=== PATIENT | female | born 1930 | race Caucasian/White ===

== ENCOUNTER 2016-12-02 06:56 | Inpatient (IN) | payer OTHER, BC ==
[~2016-12-02] VITALS: Ht 162.6 cm; Wt 83.2 kg
[~2016-12-02 06:56] MED LIST: AMLO-110 PO; ASPI81TA28 PO; ATOR10TA88 PO; BIMA0.01 OP; BRIM0.1S OP; CHOL100026 PO; CLX/20 PO; ELQ25 PO; LEVO88TA3 PO; LISI-725 PO; LSX40 PO; MELO7.5T5 PO; METO50TA17 PO; ROPI0.5T15 PO; SODI10IN5 INJ; TEMA15CA4 PO
[2016-12-02] MEDS ORDERED: SODIUM CHLORIDE 0.9% 1000ML 1,000 ML IV STA (07:32)
[2016-12-02] MEDS ORDERED: SERT50TA PO (07:38)
[2016-12-02] MEDS ORDERED: TYLOTC500 PO (07:38)
[2016-12-02] MEDS ORDERED: ROPI1TAB PO (07:38)
[2016-12-02] MEDS ORDERED: CIPR1TAB11 PO (07:40)
[2016-12-02] MEDS ORDERED: LOTE0.5S OPL (07:40)
--- NOTE | 2016-12-02 07:48 | EMERGENCY ROOM VISIT NOTE ---
History Report prepared by Leni: Josephine Pino Under the Supervision of: Dr. Chuyita Kamara D.O. First contact with patient: 07:11 Chief Complaint: CONFUSION Stated Complaint: DISORIENTED,CONFUSED,FELL,SUDDEN CHANGE IN BEHAVIO History of Present Illness The patient is an 86 year old female who presents to the Emergency Room with complaints of increasing confusion that began yesterday. Per the patient's daughter, the patient lives at home with her and her . She states that the patient typically stays alone at home throughout the day. The patient's daughter states that yesterday when she arrived home, she noticed that the patient was up in bed and appeared confused. She states that the patient stated that she called a doctor that morning and canceled an appointment. The patient's daughter notes that the patient states that she talked to the cat, and the cat told her that she was going to be shaved. She states that the patient left laundry in the wash, noting that she forgot about it. The patient' s daughter notes that it appeared as if the patient ate noting that there was food on the counter, but the patient states that she didn't eat. She states that the patient's tea was left in the microwave from the morning. The patient' s daughter notes that the patient didn't take five days worth of medications. She states that the patient also tried putting face lotion in her eyes instead of eye drops. The patient's daughter notes that the patient was confusing her left and right. She states that the patient has recently noticed blurry vision. The patient's daughter states that the patient was up every hour last evening to go to the bathroom, which is abnormal. The patient's son-in-law notes that the patient fell twice last night within a half hour. He denies the patient having any other recent falls over the last several weeks. The patient' s daughter notes that the patient has been complaining of intermittent nausea for the past 3-4 weeks, and the patient states that she vomited yesterday. She states that the patient was recently placed on Cipro for her hematuria, but states that her culture didn't grow out anything. The patient's daughter notes that the patient has a history of atrial fibrillation and CHF, stating that she is on Eloquis and Aspirin. The patient notes that recently she has been dizzy and disoriented. She states that her dizziness if a lightheaded feeling, noting that she feels off balance, but denies any room spinning sensation. She notes that she has had a recent cough and cold. The patient denies any increased shortness of breath, headache, change in bowel movements, melena, hematochezia, urinary symptoms, or pain. Source of History: patient, family (daughter, son-in-law) Onset: yesterday Position: other (global) Quality: other (confusion) Timing: other (increasing) Associated Symptoms: No SOB, No headache, No hematochezia, No melena Note: Associated Symptoms: dizzy, lightheaded, disoriented, recent falls Review of Systems See HPI for pertinent positives & negatives. A total of 10 systems reviewed and were otherwise negative. Past Medical & Surgical Medical Problems: (1) Acute CHF (2) Atrial fibrillation with RVR (3) Hypercholesteremia (4) Hypertension Family History Depression FHx: cancer Heart disease Social History Smoking Status: Never Smoker Drug Use: none Marital Status: Occupation Status: retired Current/Historical Medications Scheduled Acetaminophen (Tylenol), 1,000 MG PO TID Amlodipine (Norvasc), 5 MG PO QAM Apixaban (Eliquis), 5 MG PO BID Aspirin (Aspirin Ec), 81 MG PO QAM Atorvastatin (Lipitor), 10 MG PO QAM Bimatoprost (Lumigan), 1 DROPS OP HS Brimonidine Tartrate (Alphagan P Oph), 1 DROP OP TID Cholecalciferol (Vitamin D High Potency), 2,000 INTERUNIT PO QAM Ciprofloxacin Tab (Cipro), 250 MG PO BID Furosemide (Furosemide), 40 MG PO QAM Levothyroxine Sodium (Levothyroxine Sodium), 1 TAB PO QAM Lisinopril (Zestril), 20 MG PO QAM Loteprednol Etabonate (Lotemax 0.5% Oph), 1 DROP OPL QID Metoprolol Tartrate (Metoprolol Tartrate), 50 MG PO BID Ropinirole (Requip), 1 MG PO HS Ropinirole (Requip), 0.5 MG PO QAM Sertraline (Zoloft), 50 MG PO DAILY Temazepam (Restoril), 15 MG PO HS Allergies Coded Allergies: Meperidine (Verified Allergy, Unknown, HIVES, 12/02/16) Uncoded Allergies: SINDRYNZA (Allergy, Mild, eye gets crusty and itches, 12/05/15) TIMOPLIE (Allergy, Mild, eye itches and gets crusty, 12/05/15) Physical Exam Vital Signs Date Time Temp Pulse Resp B/P Pulse Ox O2 Delivery O2 Flow Rate FiO2 12/02/16 11:40 97 Room Air 12/02/16 11:09 88 20 151/110 97 12/02/16 09:10 88 20 151/95 93 12/02/16 08:45 84 12/02/16 08:40 Room Air 12/02/16 08:28 88 20 170/112 92 Room Air 12/02/16 07:03 37.0 73 18 149/99 97 Room Air Physical Exam GENERAL: alert, well appearing, well nourished, no distress, non-toxic EYE EXAM: normal conjunctiva, PERRL and EOM's grossly intact OROPHARYNX: no exudate, no erythema, lips, buccal mucosa, and tongue normal and mucous membranes are moist NECK: supple, no nuchal rigidity, no adenopathy, non-tender LUNGS: Clear to auscultation. Normal chest wall mechanics HEART: Irregular. no murmurs, S1 normal and S2 normal ABDOMEN: abdomen soft, non-tender, normo-active bowel sounds, no masses, no rebound or guarding. BACK: Back is symmetrical on inspection and there is no deformity, no midline tenderness, no CVA tenderness. SKIN: no rashes and no bruising UPPER EXTREMITIES: upper extremities are grossly normal. LOWER EXTREMITIES: No pitting edema. NEURO EXAM: Normal sensorium, cranial nerves II-XII grossly intact, normal speech, no gross weakness of arms, no gross weakness of legs. No ataxia of extremities, no facial droop. Patient was oriented to place and person, was confused to time. Negative pronator drift, normal finger to nose. Medical Decision & Procedures ER Provider Diagnostic Interpretation: Xray results per the radiologist and my interpretation. Other results have been interpreted by the radiologist and reviewed by me. HEAD CT NONCONTRAST CT DOSE: 1043.08 mGy.cm HISTORY: Mental status change altered mental status TECHNIQUE: Multiaxial CT images of the head were performed without the use of intravenous contrast. Comparison: None. Findings: The paranasal sinuses and mastoid air cells are clear. The calvarium and skull base are intact. The ventricles and sulci are within normal limits. There is no mass, hematoma, midline shift, or acute infarct. Impression: No acute intracranial abnormality. Electronically signed by: Seth Zapata M.D. 12/02/2016 8:29 AM Dictated Date/Time: 12/02/2016 8:28 AM CHEST ONE VIEW PORTABLE CLINICAL HISTORY: altered mental status dyspnea COMPARISON STUDY: 04/18/2016 FINDINGS: Moderate stable cardiomegaly. Calcification mitral annulus. Lungs are clear. Diaphragms smooth. Fibrotic change left pulmonary apex. IMPRESSION: Stable cardiomegaly. Calcification mitral annulus. The lungs are clear. Electronically signed by: Seth Zapata M.D. 12/02/2016 8:04 AM Dictated Date/Time: 12/02/2016 8:[address] DOSE: HISTORY: fall TECHNIQUE: Multiaxial CT images of the cervical spine were performed and reformatted in the sagittal and coronal plane without the use of contrast. COMPARISON: None. FINDINGS: No fractures. No subluxation. Prevertebral soft tissues and the C1-C2 interval are intact. No pneumothorax. Mild disc space narrowing at C4-C6. IMPRESSION: No fractures within the cervical spine. Electronically signed by: Surya Cardenas M.D. 12/02/2016 8:34 AM Dictated Date/Time: 12/02/2016 8:29 AM ULTRASOUND RIGHT UPPER QUADRANT ABDOMEN CLINICAL HISTORY: Change in mental status. Fall. COMPARISON STUDY: No priors. TECHNIQUE: Real-time, grayscale, and color flow sonography of the right upper quadrant of the abdomen was performed. Images are reviewed in the transverse and longitudinal planes. FINDINGS: Liver: The liver is enlarged, measuring 19.4 cm in length. The liver is normal in echotexture. There is mild central intrahepatic biliary ductal dilatation. The main portal vein is patent. There are least 2 hepatic cysts measure up to 2.8 cm. Gallbladder: The gallbladder is mildly distended. A large shadowing mobile gallstone is identified measuring at least 2.8 cm. There is no gallbladder wall thickening or pericholecystic fluid. A sonographic Hutchins's sign is reportedly absent. The common bile duct measures up to 0.8 cm in diameter. Pancreas: Visualized portions of the pancreatic head and body are normal in appearance. The splenic vein is patent. Right kidney: Survey images of the right kidney demonstrate cortical atrophy. There is mild right-sided hydronephrosis. Nonobstructing right renal calculi are noted. Ascites: None. IMPRESSION: 1. Cholelithiasis without sonographic evidence of acute cholecystitis. 2. Nephrolithiasis. 3. There is mild right-sided hydronephrosis. An obstructing right ureteral calculus is not excluded. Clinical correlation will be required. Consider radiographic correlation. Electronically signed by: Leopoldo Quiñones M.D. 12/02/2016 11:04 AM Dictated Date/Time: 12/02/2016 11:01 AM Laboratory Results 12/02/16 08:52 Red Blood Count 5.05, Mean Corpuscular Volume 82.6, Mean Corpuscular Hemoglobin 29.1, Mean Corpuscular Hemoglobin Concent 35.3, Mean Platelet Volume 10.1, Neutrophils (%) (Auto) 76.5, Lymphocytes (%) (Auto) 13.7, Monocytes (%) (Auto) 9.2, Eosinophils (%) (Auto) 0.1, Basophils (%) (Auto) 0.1, Neutrophils # (Auto) 7.00, Lymphocytes # (Auto) 1.25, Monocytes # (Auto) 0.84, Eosinophils # (Auto) 0.01, Basophils # (Auto) 0.01 Test 12/02/16 08:00 12/02/16 08:52 12/02/16 11:35 Urine Color RED Urine Appearance CLEAR (CLEAR) Urine pH 5.5 (4.5-7.5) Urine Specific Adams 1.011 (1.000-1.030) Urine Protein 1+ (NEG) Urine Glucose (UA) TRACE (NEG) Urine Ketones 1+ (NEG) Urine Occult Blood 3+ (NEG) Urine Nitrite NEG (NEG) Urine Bilirubin NEG (NEG) Urine Urobilinogen NEG (NEG) Urine Leukocyte Esterase TRACE (NEG) Urine WBC (Auto) 1-5 /hpf (0-5) Urine RBC (Auto) >30 /hpf (0-4) Urine Hyaline Casts (Auto) 1-5 /lpf (0-5) Urine Epithelial Cells (Auto) 20-30 /lpf (0-5) Urine Bacteria (Auto) NEG (NEG) White Blood Count 9.15 K/uL (4.8-10.8) Red Blood Count 5.05 M/uL (4.2-5.4) Hemoglobin 14.7 g/dL (12.0-16.0) Hematocrit 41.7 % (37-47) Mean Corpuscular Volume 82.6 fL (80-100) Mean Corpuscular Hemoglobin 29.1 pg (25-34) Mean Corpuscular Hemoglobin Concent 35.3 g/dl (32-36) Platelet Count 210 K/uL (130-400) Mean Platelet Volume 10.1 fL (7.4-10.4) Neutrophils (%) (Auto) 76.5 % Lymphocytes (%) (Auto) 13.7 % Monocytes (%) (Auto) 9.2 % Eosinophils (%) (Auto) 0.1 % Basophils (%) (Auto) 0.1 % Neutrophils # (Auto) 7.00 K/uL (1.4-6.5) Lymphocytes # (Auto) 1.25 K/uL (1.2-3.4) Monocytes # (Auto) 0.84 K/uL (0.11-0.59) Eosinophils # (Auto) 0.01 K/uL (0-0.5) Basophils # (Auto) 0.01 K/uL (0-0.2) RDW Standard Deviation 41.3 fL (36.4-46.3) RDW Coefficient of Variation 13.7 % (11.5-14.5) Immature Granulocyte % (Auto) 0.4 % Immature Granulocyte # (Auto) 0.04 K/uL (0.00-0.02) Est Creatinine Clear Calc Drug Dose 53.9 ml/min Estimated Average Glucose 140 mg/dl Hemoglobin A1c 6.5 % (4.5-5.6) Total Bilirubin 1.6 mg/dl (0.2-1) Alanine Aminotransferase (ALT/SGPT) 12 U/L (12-78) Alkaline Phosphatase 60 U/L (45-117) Total Protein 7.0 gm/dl (6.4-8.2) Albumin 3.3 gm/dl (3.4-5.0) Globulin 3.7 gm/dl (2.5-4.0) Albumin/Globulin Ratio 0.9 (0.9-2) Aspartate Amino Transf (AST/SGOT) 24 U/L (15-37) Thyroid Stimulating Hormone (TSH) 6.900 uIu/ml (0.300-4.500) Free Thyroxine 1.21 ng/dl (0.80-1.60) Laboratory results per my review. Medications Administered Medications (Trade) Dose Ordered Sig/Jerzy Route Start Time Stop Time Status Last Admin Dose Admin Sodium Chloride (Nss 1000ml) 1,000 ml @ 150 mls/hr [id number] STAT IV 12/02/16 07:32 12/02/16 14:11 DC 12/02/16 09:10 150 MLS/HR Aspirin (Ecotrin Tab) 325 mg ONE STAT PO 12/02/16 11:31 12/02/16 11:33 DC 12/02/16 11:47 325 MG ECG Indication: other (confusion) Rate (beats per minute): 112 Rhythm: atrial fibrillation Findings: PVC, other (baseline artifact) Change: Repeat EKG: atrial fibrillation 85, occasional PVC, left axis, prolonged QT, no acute ischemic changes. ED Course 0713: The patient was evaluated in room A10. A complete history and physical examination was performed. 0732: Ordered Sodium Chloride 1000 ml @ 150 mls/hr IV. 0950: Upon reevaluation, the patient's exam is unchanged. I discussed my findings with the patient and her family and they understand and agree with the treatment plan. Based on the patients age, coexisting illnesses, exam and lab findings the decision to treat as an inpatient was made. The patient remained stable while under my care. The patient will be evaluated for further management. 1130: I discussed the patients case with REBECCA Almazan PA-C. She is going to evaluate the patient for further treatment under REBECCA Mejia. 1131: Ordered Aspirin 325 mg PO. Medical Decision The patient is an 86 year old female who presents to the ED with complaints of confusion. Patient with new-onset altered mental status and confusion. I have a low suspicion for a culture medic injury. Patient outside of the window for any acute intervention for possible CVA. Patient complained with medications as family helps to manage those and has been taking her blood thinner daily. Patient with known chronic A. fib and no current changes. No acute evidence of bacteremia/sepsis. Hematuria likely secondary to catheterize specimen in the setting of known anticoagulation. I think less likely medication reaction from recent use of Cipro for presumed UTI tested for as an outpatient. No evidence of pyelonephritis. Ultrasound ordered given mild elevation of LFTs, patient with cholelithiasis but no evidence of acute cholecystitis. Doubt congestive leading to altered mentation no history of chronic liver disease or hepatic encephalopathy. Hematuria less likely from incidental nephrolithiasis noted on ultrasound as patient's symptoms and presentation was not consistent with renal colic. Discussed with patient and family at bedside possible differential diagnosis, need for additional evaluation, they verbalized understanding were agreeable to plan. Consults Time Called: 1109 Consulting Physician: REBECCA Almazan PA-C, REBECCA Mejia Returned Call: 1130 I discussed the patients case with REBECCA Almazan PA-C. She is going to evaluate the patient for further treatment under REBECCA Mejia. Impression Primary Impression: Altered mental status Additional Impressions: Hematuria A-fib Abnormal LFTs (liver function tests) Scribe Attestation The scribe's documentation has been prepared under my direction and personally reviewed by me in its entirety. I confirm that the note above accurately reflects all work, treatment, procedures, and medical decision making performed by me. Departure Information Dispostion Being Evaluated By Hospitalist Regino Garcia M.D. (PCP) Problem Qualifiers Primary Impression: Altered mental status Altered mental status type: disorientation Qualified Codes: R41.0 - Disorientation, unspecified Additional Impressions: A-fib Atrial fibrillation type: chronic Qualified Codes: I48.2 - Chronic atrial fibrillation
--- NOTE | 2016-12-02 08:06 | DIAGNOSTIC IMAGING REPORT ---
CHEST ONE VIEW PORTABLE CLINICAL HISTORY: altered mental status dyspnea COMPARISON STUDY: 04/18/2016 FINDINGS: Moderate stable cardiomegaly. Calcification mitral annulus. Lungs are clear. Diaphragms smooth. Fibrotic change left pulmonary apex. IMPRESSION: Stable cardiomegaly. Calcification mitral annulus. The lungs are clear. Electronically signed by: Seth Zapata M.D. 12/02/2016 8:04 AM Dictated Date/Time: 12/02/2016 8:02 AM
--- NOTE | 2016-12-02 08:31 | DIAGNOSTIC IMAGING REPORT ---
HEAD CT NONCONTRAST CT DOSE: 1043.08 mGy.cm HISTORY: Mental status change altered mental status TECHNIQUE: Multiaxial CT images of the head were performed without the use of intravenous contrast. Comparison: None. Findings: The paranasal sinuses and mastoid air cells are clear. The calvarium and skull base are intact. The ventricles and sulci are within normal limits. There is no mass, hematoma, midline shift, or acute infarct. Impression: No acute intracranial abnormality. Electronically signed by: Seth Zapata M.D. 12/02/2016 8:29 AM Dictated Date/Time: 12/02/2016 8:28 AM
--- NOTE | 2016-12-02 08:36 | DIAGNOSTIC IMAGING REPORT ---
CERVICAL SPINE CT CT DOSE: HISTORY: fall TECHNIQUE: Multiaxial CT images of the cervical spine were performed and reformatted in the sagittal and coronal plane without the use of contrast. COMPARISON: None. FINDINGS: No fractures. No subluxation. Prevertebral soft tissues and the C1-C2 interval are intact. No pneumothorax. Mild disc space narrowing at C4-C6. IMPRESSION: No fractures within the cervical spine. Electronically signed by: Surya Cardenas M.D. 12/02/2016 8:34 AM Dictated Date/Time: 12/02/2016 8:29 AM
[2016-12-02 08:51] LABS: URINE APPEARANCE CLEAR (CLEAR); URINE BILIRUBIN NEG (NEG); URINE COLOR RED; URINE EPITHELIAL CELL AUTO 20-30 /lpf (0-5); URINE NITRITE NEG (NEG); URINE PH 5.5 (4.5-7.5); URINE SPECIFIC GRAVITY 1.011 (1.000-1.030); UROBILINOGEN NEG (NEG); ZZURINE CULT IF INDIC CATH NO
[2016-12-02 08:59] LABS: MANUAL MICROSCOPIC REQUIRED? NO; REVIEW REQ? NO
[2016-12-02 09:17] LABS: BASO % 0.1 %; BASO ABS # 0.01 K/uL (0-0.2); COMPLETE YES; EOS % 0.1 %; HEMATOCRIT 41.7 % (37-47); IG% 0.4 %; LYMPH % 13.7 %; LYMPH ABS # 1.25 K/uL (1.2-3.4); MEAN CELL VOLUME 82.6 fL (80-100); MEAN CORPUSCULAR HEMOGLOBIN 29.1 pg (25-34); MEAN CORPUSCULAR HGB CONC 35.3 g/dl (32-36); MEAN PLATELET VOLUME 10.1 fL (7.4-10.4); MONO % 9.2 %; NEUT % 76.5 %; PLATELET COUNT 210 K/uL (130-400); RED BLOOD COUNT 5.05 M/uL (4.2-5.4); WHITE BLOOD COUNT 9.15 K/uL (4.8-10.8)
[2016-12-02 09:51] LABS: ALB/GLOB RATIO 0.9 (0.9-2); ALKALINE PHOSPHATASE 60 U/L (45-117); ALT/SGPT 12 U/L (12-78); BLOOD UREA NITROGEN 12 mg/dl (7-18); BUN/CREATININE RATIO 14.7 (10-20); CALCIUM 8.7 mg/dl (8.5-10.1); CARBON DIOXIDE 27 mmol/L (21-32); CHLORIDE 96 mmol/L (98-107); CREATININE 0.78 mg/dl (0.60-1.20); GLUCOSE 152 mg/dl (70-99); SODIUM 135 mmol/L (136-145)
--- NOTE | 2016-12-02 11:05 | DIAGNOSTIC IMAGING REPORT ---
ULTRASOUND RIGHT UPPER QUADRANT ABDOMEN CLINICAL HISTORY: Change in mental status. Fall. COMPARISON STUDY: No priors. TECHNIQUE: Real-time, grayscale, and color flow sonography of the right upper quadrant of the abdomen was performed. Images are reviewed in the transverse and longitudinal planes. FINDINGS: Liver: The liver is enlarged, measuring 19.4 cm in length. The liver is normal in echotexture. There is mild central intrahepatic biliary ductal dilatation. The main portal vein is patent. There are least 2 hepatic cysts measure up to 2.8 cm. Gallbladder: The gallbladder is mildly distended. A large shadowing mobile gallstone is identified measuring at least 2.8 cm. There is no gallbladder wall thickening or pericholecystic fluid. A sonographic Hutchins's sign is reportedly absent. The common bile duct measures up to 0.8 cm in diameter. Pancreas: Visualized portions of the pancreatic head and body are normal in appearance. The splenic vein is patent. Right kidney: Survey images of the right kidney demonstrate cortical atrophy. There is mild right-sided hydronephrosis. Nonobstructing right renal calculi are noted. Ascites: None. IMPRESSION: 1. Cholelithiasis without sonographic evidence of acute cholecystitis. 2. Nephrolithiasis. 3. There is mild right-sided hydronephrosis. An obstructing right ureteral calculus is not excluded. Clinical correlation will be required. Consider radiographic correlation. Electronically signed by: Leopoldo Quiñones M.D. 12/02/2016 11:04 AM Dictated Date/Time: 12/02/2016 11:01 AM
[2016-12-02] MEDS ORDERED: ASPIRIN 325 MG ECTAB PO STA (11:31)
[2016-12-02 11:40] VITALS: O2SAT 97; Ht 162.6 cm; Wt 83.2 kg
[2016-12-02 12:17] LABS: POTASSIUM 2.7 mmol/L (3.5-5.1)
[2016-12-02] MEDS ORDERED: SODIUM CHLORIDE 0.9% 1000ML 1,000 ML IV SCH (12:18)
[2016-12-02 12:25] LABS: THYROID STIMULATING HORMONE 6.9 uIu/ml (0.300-4.500)
[2016-12-02] MEDS ORDERED: ALUMINUM/MAGNESIUM/SIMETH (MAALOX MAX) 30 ML UDC PO PRN (12:30)
[2016-12-02] MEDS ORDERED: ACETAMINOPHEN 325 MG TAB PO PRN (12:30)
[2016-12-02] MEDS ORDERED: MAGNESIUM HYDROXIDE SUSP 30 ML UDC PO PRN (12:30)
[2016-12-02] MEDS ORDERED: POLYETHYLENE (MIRALAX) 17 GM PACK PO PRN (12:30)
[2016-12-02] MEDS ORDERED: ONDANSETRON INJ 2 MG/ML 2 ML VIAL IV PRN (12:30)
[2016-12-02] MEDS ORDERED: PHARMACIST DISCHARGE MED REC CONSULT PRN (12:30)
[2016-12-02] MEDS ORDERED: POTASSIUM CHLORIDE 10 MEQ TABCR PO STA ×2 (12:31→15:57)
--- NOTE | 2016-12-02 12:42 | History and Physical ---
History & Physical Date & Time of Service: Dec 02, 2016 at 12:38 Chief Complaint: Disoriented,Confused,Fell,Sudden Change In Behavio Primary Care Physician: Regino Mcleod M.D. History of Present Illness Source: patient, family (Daughter Arcelia) Ms. Villegas is an 86 y/o female with PMHx of Diastolic Congestive Heart Failure, Atrial Fibrillation, HTN, and HLD who presents to the ED complaining of increased confusion that began yesterday. HPI obtained by the daughter Arcelia as patient has difficulty recalling current events. Patient lives with her daughter and son-in-law and normally stays home alone throughout the day. Daughter reports patient is alert and oriented to person, place, and most of the time to time at baseline. When the daughter arrived home yesterday she noticed her mother was still in her bed and appeared confused. Patient was recalling events that did not occur throughout the day. Some of these events were bizarre such as claiming to talk to the cat who told her that she was going to be shaved. Daughter reports that she has been leaving laundry in the wash, leaving her drinks in the microwave, and not taking approximately 5 days worth of her medications. Reports that she has only been compliant with her Synthroid and sleeping pill. Also notes that she has been trying to use lotion as her eyedrops. Prior to these acute events patient is largely independent in his activities. Daughter reports that she helps organize the patient's medications allows her mother to manage them. Daughter has noted urinary frequency over the past couple days. Reporting that she was placed on ciprofloxacin for hematuria but culture without growth, which patient has been noncompliant. Patient has fallen twice last night within a half hour but reports she slid out of bed.. Associated nausea 3-4 weeks and patient reports emesis yesterday. Associated lightheadedness and dizziness and feels that she is off balance. Daughter denies slurred speech but reports difficulty finding words. In addition, phrases do not seem to have a purpose or make sense. She denies fever/chills, chest pain, shortness of breath, abdominal pain, dysuria, melena/hematochezia. In the ED, labs significant for troponin of 0.379. Potassium of 2.7. Head CT without acute intracranial processes. An chest x-ray reveals stable cardiomegaly without evidence of consolidation or pleural effusions. EKG with atrial fibrillation at a rate of 85 bpm. Past Medical/Surgical History Medical Problems: (1) Hypercholesteremia Status: Chronic (2) Hypertension Status: Chronic Family History Depression FHx: cancer Heart disease Social History Smoking Status: Never Smoker Smokeless Tobacco Use: No Alcohol Use: none Drug Use: none Marital Status: Housing status: lives with family Occupational Status: retired Allergies Coded Allergies: Meperidine (Verified Allergy, Unknown, HIVES, 12/02/16) Uncoded Allergies: SINDRYNZA (Allergy, Mild, eye gets crusty and itches, 12/05/15) TIMOPLIE (Allergy, Mild, eye itches and gets crusty, 12/05/15) Home Medications Scheduled Acetaminophen (Tylenol), 1,000 MG PO TID Amlodipine (Norvasc), 5 MG PO QAM Apixaban (Eliquis), 5 MG PO BID Aspirin (Aspirin Ec), 81 MG PO QAM Atorvastatin (Lipitor), 10 MG PO QAM Bimatoprost (Lumigan), 1 DROPS OP HS Brimonidine Tartrate (Alphagan P Oph), 1 DROP OP TID Cholecalciferol (Vitamin D High Potency), 2,000 INTERUNIT PO QAM Ciprofloxacin Tab (Cipro), 250 MG PO BID Furosemide (Furosemide), 40 MG PO QAM Levothyroxine Sodium (Levothyroxine Sodium), 1 TAB PO QAM Lisinopril (Zestril), 20 MG PO QAM Loteprednol Etabonate (Lotemax 0.5% Oph), 1 DROP OPL QID Metoprolol Tartrate (Metoprolol Tartrate), 50 MG PO BID Ropinirole (Requip), 1 MG PO HS Ropinirole (Requip), 0.5 MG PO QAM Sertraline (Zoloft), 50 MG PO DAILY Temazepam (Restoril), 15 MG PO HS Review of Systems Constitutional: No chills, No fever Eyes: + diplopia ENT: No nasal symptoms, No sore throat, No trouble swallowing Respiratory: No cough, No shortness of breath Cardiovascular: No chest pain Abdomen: + nausea, No constipation, No diarrhea, No pain, No vomiting Musculoskeletal: No calf pain, No swelling Genitourinary - Female: + urinary frequency, No dysuria Neurologic: + balance problems, + memory loss, + vertigo Hematologic / Lymphatic: No abnormal bleeding/bruising, No clotting problems Integumentary: No rash Physical Exam Vital Signs Date Time Temp Pulse Resp B/P Pulse Ox O2 Delivery O2 Flow Rate FiO2 12/02/16 11:40 97 Room Air 12/02/16 11:09 88 20 151/110 97 12/02/16 09:10 88 20 151/95 93 12/02/16 08:45 84 12/02/16 08:40 Room Air 12/02/16 08:28 88 20 170/112 92 Room Air 12/02/16 07:03 37.0 73 18 149/99 97 Room Air General Appearance: WD/WN, no apparent distress, + pertinent finding Head: normocephalic, atraumatic Eyes: PERRL, EOMI, sclerae normal ENT: hearing grossly normal Neck: supple, no JVD, trachea midline Respiratory/Chest: lungs clear, normal breath sounds, no respiratory distress, no accessory muscle use, + decreased breath sounds Cardiovascular: no gallop, no murmur, + irregularly irregular Abdomen/GI: normal bowel sounds, non tender, soft Back: no CVA tenderness Extremities/Musculoskelatal: no calf tenderness, no pedal edema Neurologic/Psych: alert, + disoriented (oriented to self only), + pertinent finding (appears a slight tongue deviation to patient's right; no focal neurodeficits appreciated; takes a lot of prompting to follow commands; rapid alternating movements intact with prompting - hand flip, nose to finger, and heal down eller) Skin: normal color, warm/dry Diagnostics Laboratory Results Results Past 24 Hours Test 12/02/16 08:00 12/02/16 08:52 12/02/16 11:35 12/02/16 12:18 Range/Units Urine Color RED Urine Appearance CLEAR CLEAR Urine pH 5.5 4.5-7.5 Urine Specific [place] 1.011 1.000-1.030 Urine Protein 1+ NEG Urine Glucose (UA) TRACE NEG Urine Ketones 1+ NEG Urine Occult Blood 3+ NEG Urine Nitrite NEG NEG Urine Bilirubin NEG NEG Urine Urobilinogen NEG NEG Urine Leukocyte Esterase TRACE NEG Urine WBC (Auto) 1-5 0-5 /hpf Urine RBC (Auto) >30 0-4 /hpf Urine Hyaline Casts (Auto) 1-5 0-5 /lpf Urine Epithelial Cells (Auto) 20-30 0-5 /lpf Urine Bacteria (Auto) NEG NEG White Blood Count 9.15 4.8-10.8 K/uL Red Blood Count 5.05 4.2-5.4 M/uL Hemoglobin 14.7 12.0-16.0 g/dL Hematocrit 41.7 37-47 % Mean Corpuscular Volume 82.6 80-100 fL Mean Corpuscular Hemoglobin 29.1 25-34 pg Mean Corpuscular Hemoglobin Concent 35.3 32-36 g/dl Platelet Count 210 130-400 K/uL Mean Platelet Volume 10.1 7.4-10.4 fL Neutrophils (%) (Auto) 76.5 % Lymphocytes (%) (Auto) 13.7 % Monocytes (%) (Auto) 9.2 % Eosinophils (%) (Auto) 0.1 % Basophils (%) (Auto) 0.1 % Neutrophils # (Auto) 7.00 1.4-6.5 K/uL Lymphocytes # (Auto) 1.25 1.2-3.4 K/uL Monocytes # (Auto) 0.84 0.11-0.59 K/uL Eosinophils # (Auto) 0.01 0-0.5 K/uL Basophils # (Auto) 0.01 0-0.2 K/uL RDW Standard Deviation 41.3 36.4-46.3 fL RDW Coefficient of Variation 13.7 11.5-14.5 % Immature Granulocyte % (Auto) 0.4 % Immature Granulocyte # (Auto) 0.04 0.00-0.02 K/uL Sodium Level 135 136-145 mmol/L Potassium Level 2.7 3.5-5.1 mmol/L Chloride Level 96 98-107 mmol/L Carbon Dioxide Level 27 21-32 mmol/L Anion Gap 12.0 3-11 mmol/L Blood Urea Nitrogen 12 7-18 mg/dl Creatinine 0.78 0.60-1.20 mg/dl Est Creatinine Clear Calc Drug Dose 53.9 ml/min Estimated GFR () 79.8 Estimated GFR (Non- 68.8 BUN/Creatinine Ratio 14.7 10-20 Random Glucose 152 70-99 mg/dl Calcium Level 8.7 8.5-10.1 mg/dl Total Bilirubin 1.6 0.2-1 mg/dl Aspartate Amino Transf (AST/SGOT) 24 15-37 U/L Alanine Aminotransferase (ALT/SGPT) 12 12-78 U/L Alkaline Phosphatase 60 45-117 U/L Troponin I 0.379 0-0.045 ng/ml Total Protein 7.0 6.4-8.2 gm/dl Albumin 3.3 3.4-5.0 gm/dl Globulin 3.7 2.5-4.0 gm/dl Albumin/Globulin Ratio 0.9 0.9-2 Thyroid Stimulating Hormone (TSH) 6.900 0.300-4.500 uIu/ml Impression Assessment and Plan Ms. Villegas is an 86 y/o female with PMHx of Diastolic Congestive Heart Failure, Atrial Fibrillation, HTN, and HLD who presents to the ED complaining of increased confusion that began yesterday. Confusion/Disorientation: ACS vs CVA vs Electrolyte Abnormalities vs Thyroid vs Medication Induced Encephalopathy - Patient required frequent prompting but oriented to self only and takes a lot of prompting to follow certain commands -- No focal neurodeficits appreciated but mild tongue deviation to the R appreciated. -- Question whether abrupt cessation of medications as cause -- Held Requip and Restoril at this time as may be possible contribution? - Elevated troponin - serial cardiac enzymes - TSH - elevated at 6.9 - obtain free T4 - Repeat UA and culture regardless of findings - hold Cipro at this time - Neuro checks and NIH stroke scale - until CVA ruled out - Lipid panel and HbA1c - B12 level - MRI combo - R/O CVA - Carotid U/S and Echo - ASA 81 mg daily - will hold if MRI negative - Consult neurology if imaging suggest CVA Hypokalemia: - Potassium 40 mEq x 1 dose - NSS and KCl 10 mEq at 80 mL/hr - Hold Lasix Mild R Hydronephrosis: - U/S with above findings - cannot R/O obstructing stone - KUB - given hematuria and mild hydronephrosis Hypothyroidism: - Synthroid 88 mcg daily - may need increased - will await free T4 Atrial Fibrillation: Rate Controlled - Hold Apixaban 5 mg BID 2/2 hematuria - Metoprolol tartrate 50 mg BID Diastolic Congestive Heart Failure and HTN: - Amlodipine 5 mg daily and lisinopril 20 mg daily -- Scheduled for AM dosing - will need D/C'd pending imaging for permissive HTN - Atorvastatin 10 mg daily DVT Prophylaxis: - PIETRO/SCDs - Hold Apixaban at this time - may need resumed Code Status: FULL RESUSCITATION Disposition: - PT/OT Evaluations Pt seen/examined independently - reviewed above with PA and Pt presented with CC of confusion - mostly oriented at the time of admission although mentation may be generally slower OE AAO x 2 S1.2 irreg CTAB nt,nd No overt defecits has hematuria - possibly due to apixaban - no evidence of acute infection P: Monitor overnight - check thyroid function MRI brain pending PT OT requested - hold sedating/psychoactive meds repeat UA/culture pending Level of Care Telemetry Advanced Directives Existing Living Will: Yes Existing Power of Film Writer: Yes Resuscitation Status FULL RESUSCITATION VTE Prophylaxis VTE Risk Assessment Done? Y/N: Yes Risk Level: Moderate Given or contraindicated: Other Anticoagulation, T.E.D. Stockings, SCD's
[2016-12-02 13:06] LABS: ESTIMATED AVERAGE GLUCOSE 140 mg/dl; HA1C FLAG Normal (Normal)
[2016-12-02] MEDS ORDERED: PNEUMOCOCCAL POLYSACCHARIDES 25 MCG/0.5 ML VIAL/SYR IM. ONE (13:30)
[2016-12-02] MEDS ORDERED: PNEUMOCOCCAL ADMINISTRATION CHARGE ONE (13:30)
[2016-12-02 14:06] VITALS: BP 173/100; PULSE 116; TEMP 36.6; O2SAT 92
[2016-12-02] MEDS: POTASSIUM CHLORIDE INJ 10 MEQ in SODIUM CHLORIDE 0.9% 1000ML 1,000 ML IV SCH (14:30)
[2016-12-02 15:45] VITALS: BP 149/75; PULSE 85; TEMP 36.8; O2SAT 96
[2016-12-02 15:51] LABS: CALCIUM 8.8 mg/dl (8.5-10.1); CREATININE 0.8 mg/dl (0.60-1.20); POTASSIUM 2.9 mmol/L (3.5-5.1)
[2016-12-02] MEDS: ALPHAGAN P 0.1% SCH (16:00)
[2016-12-02 16:05] LABS: CKMB/CK RATIO 1.5 (0-3.0)
[2016-12-02] MEDS ORDERED: MAGNESIUM SULFATE 1GM / D5W 1 GM in PREMIXED IN D5W 100 ML IV ONE (16:15)
[2016-12-02 17:13] LABS: URINE APPEARANCE CLEAR (CLEAR); URINE BILIRUBIN NEG (NEG); URINE COLOR ORANGE; URINE NITRITE NEG (NEG); URINE PH 6.5 (4.5-7.5); URINE SPECIFIC GRAVITY 1.001 (1.000-1.030); UROBILINOGEN NEG (NEG); ZZUR CULT IF INDIC CLEAN CATCH NO
[2016-12-02 17:15] LABS: MANUAL MICROSCOPIC REQUIRED? NO; REVIEW REQ? NO
[2016-12-02] MEDS ORDERED: GADAVIST IV PRN (17:30)
--- NOTE | 2016-12-02 17:37 | DIAGNOSTIC IMAGING REPORT ---
MRI OF THE BRAIN WITHOUT AND WITH IV CONTRAST CLINICAL HISTORY: Increasing confusion. Possible stroke. Altered mental status. COMPARISON STUDY: Head CT dated 12/02/2016 TECHNIQUE: MRI of the brain was performed from the vertex to the skull base utilizing various T1 and T2 weighted sequences. Following the IV administration of 8 mL of Gadavist contrast, additional enhanced images were obtained. FINDINGS: Sagittal T1, axial diffusion, proton density and T2 weighted axial, coronal FLAIR, and pre and post axial T1-weighted images were acquired. These were supplemented with post gadolinium coronal T1 weighted images. No intra or extra-axial mass lesions are visualized. There is a 2 mm focus of restricted water diffusion within the left centrum semiovale. There is a 6 mm focus of restricted water diffusion within the right periventricular white matter. There is a 3 mm focus of restricted water diffusion within the left posterior cerebellum. These foci are consistent with small acute/subacute infarcts. There is no evidence of ventricular dilatation. Proton density T2-weighted and FLAIR images reveal scattered foci of increased T2 signal within the white matter, likely on a small vessel basis. There are no abnormal flow voids. There is no evidence of pathologic enhancement. There are foci of increased T2 signal within the mastoids likely inflammatory. The study is mildly compromised due to motion artifact. IMPRESSION: 1. Subcentimeter foci of restricted water diffusion within the left centrum semiovale, right periventricular deep white matter, and left cerebellar hemisphere. The foci are indicative of with acute/subacute infarcts 2. No evidence of intracranial mass Electronically signed by: Tamir Prieto M.D. 12/02/2016 5:36 PM Dictated Date/Time: 12/02/2016 5:31 PM
--- NOTE | 2016-12-02 18:20 | DIAGNOSTIC IMAGING REPORT ---
ULTRASOUND OF THE CAROTID ARTERIES CLINICAL HISTORY: Stroke COMPARISON STUDY: None. TECHNIQUE: Real-time, grayscale, and color Doppler sonography of the carotid arteries was performed. Imaging reviewed in the transverse and longitudinal planes. NASCET criteria was utilized for stenosis calcification. FINDINGS: There is mild to moderate atherosclerotic plaque present . The peak systolic velocity within the right internal carotid artery is 57 cm/sec. The systolic velocity ratio of right internal to common carotid artery is 0.8. The peak systolic velocity within the left internal carotid artery is 42 cm/sec. The systolic velocity ratio left internal to common carotid artery is 0.6. Antegrade flow is seen in the vertebral arteries. The external carotid arteries are patent. Blood pressure in the right arm measured 168 mm/Hg. Blood pressure in the left arm measured 163 mm/Hg. IMPRESSION: No evidence of hemodynamically significant carotid stenosis. Electronically signed by: Tamir Prieto M.D. 12/02/2016 6:19 PM Dictated Date/Time: 12/02/2016 6:17 PM
--- NOTE | 2016-12-02 18:22 | DIAGNOSTIC IMAGING REPORT ---
KUB CLINICAL HISTORY: Abnormal ultrasound demonstrating right-sided hydronephrosis COMPARISON STUDY: Ultrasound the abdomen dated 12/02/2016 FINDINGS: There is no pathologic bowel dilatation. Atheromatous changes are present within the aorta. There is calcification within the mitral valve annulus. No renal calculi are visualized. There are tiny nonspecific pelvic basin calcifications. There is a nonspecific 33 mm left upper quadrant calcification. IMPRESSION: 1. No renal calculi identified on conventional radiographic imaging 2. Nonspecific pelvic basin calcifications 3. No evidence of pathologic bowel dilatation 4. Nonspecific 33 mm left upper quadrant calcification Electronically signed by: Tamir Prieto M.D. 12/02/2016 6:21 PM Dictated Date/Time: 12/02/2016 6:19 PM
[2016-12-02 19:04] VITALS: BP 150/100; PULSE 154; O2SAT 96
[2016-12-02 19:50] VITALS: BP 123/84; PULSE 121; TEMP 36.9; O2SAT 96
[2016-12-02] MEDS ORDERED: OPTIRAY 320 IV PRN (20:00)
--- NOTE | 2016-12-02 20:27 | DIAGNOSTIC IMAGING REPORT ---
CT ABD/PELVIS COMBO CLINICAL HISTORY: gross hematuria ,hydronephrosis, nephrolithiasis COMPARISON STUDY: None. TECHNIQUE: Unenhanced images were obtained through the abdomen and pelvis. The patient was injected with 50 cc of Optiray 320. After 5 minute delay, the patient is rescanned in a dynamic helical fashion during intravenous administration of 66 cc of Optiray 320. CT DOSE: 1259.44 mGy.cm FINDINGS: Lower chest: The heart is enlarged. There is a pericardial effusion. There is bibasilar atelectasis/fibrosis. Liver: There is a 23 mm cyst within the left hepatic lobe. Gallbladder: Mildly distended. Spleen: Normal in size and attenuation. Pancreas: Unremarkable. Adrenal glands: Unremarkable. Kidneys: There is right-sided hydronephrosis. There is evidence of contrast within the bladder and right renal collecting system secondary to gadolinium excretion from a prior MRI the brain. This makes evaluation for calculi difficult. There is a suspected right UPJ calculus measuring 6 mm. Bowel: There are no transition zones indicate bowel obstruction. There is no evidence of acute appendicitis. There is extensive colonic diverticulosis. There are no acute peridiverticular inflammatory changes. There is a bowel containing ventral hernia and bowel containing right inguinal hernia. Peritoneum: There is no intraperitoneal free air or abdominal ascites. Vasculature: The abdominal aorta is normal in course and caliber. Adenopathy: None. Pelvic viscera: The uterus appears surgically absent. Skeletal structures: No destructive osseous lesions are seen. IMPRESSION: 1. Contrast within the collecting system and bladder secondary to gadolinium excretion from a prior MRI 2. Right-sided hydronephrosis. 6 mm obstructing right UPJ calculus 3. No evidence of bowel obstruction. No evidence of free air 4. Complex fat and bowel containing ventral hernia. No current evidence of obstruction 5. Bowel containing right inguinal hernia. No current evidence of obstruction 6. Extensive diverticulosis. No evidence of acute peridiverticular inflammatory change 7. Cardiomegaly. Pericardial effusion. Electronically signed by: Tamir Prieto M.D. 12/02/2016 8:25 PM Dictated Date/Time: 12/02/2016 8:19 PM
--- NOTE | 2016-12-02 20:28 | GENITOURINARY CONSULTATION ---
DATE OF CONSULTATION: 12/02/2016 REASON FOR THE CONSULT: Gross hematuria. HISTORY OF PRESENTATION: The patient is an 86-year-old female who is unfortunately a poor historian who appears to have had a possible infarct of her brain which may have caused onset of confusion in the last several days. Reading the history from the Emergency Room, from the daughters' discussion in the Emergency Room, it appears the patient had been on ciprofloxacin previously for gross hematuria and had previously been on Pradaxa, but has been off Pradaxa most recently.
--- NOTE | 2016-12-02 20:53 | Progress Note ---
Subjective Date of Service: Dec 02, 2016. Subjective Pt evaluation today including: review of studies Pt has obstructing r upj stone .No other renal or bladder masses noted on ct to explain hematuria She just had dinner. Awaiting neurology input . She may need a stent and have made npo . Unfortunately she may bleed worse if she needs to be anticoagulated Problem List Medical Problems: (1) A-fib Status: Acute (2) Abnormal LFTs (liver function tests) Status: Acute (3) Altered mental status Status: Acute (4) Hematuria Status: Acute Objective Vital Signs Date Time Temp Pulse Resp B/P Pulse Ox O2 Delivery O2 Flow Rate FiO2 12/02/16 19:04 154 20 150/100 96 Room Air 12/02/16 16:00 Room Air 12/02/16 15:45 36.8 85 20 149/75 96 Room Air 12/02/16 14:06 36.6 116 17 173/100 92 Room Air 12/02/16 13:02 90 18 168/94 95 Room Air 12/02/16 11:40 97 Room Air 12/02/16 11:09 88 20 151/110 97 12/02/16 09:10 88 20 151/95 93 12/02/16 08:45 84 12/02/16 08:40 Room Air 12/02/16 08:28 88 20 170/112 92 Room Air 12/02/16 07:03 37.0 73 18 149/99 97 Room Air Laboratory Results Last 24 Hours Test 12/02/16 08:00 12/02/16 08:52 12/02/16 11:35 12/02/16 14:59 Urine Color RED Urine Appearance CLEAR Urine pH 5.5 Urine Specific [place] 1.011 Urine Protein 1+ Urine Glucose (UA) TRACE Urine Ketones 1+ Urine Occult Blood 3+ Urine Nitrite NEG Urine Bilirubin NEG Urine Urobilinogen NEG Urine Leukocyte Esterase TRACE Urine WBC (Auto) 1-5 /hpf Urine RBC (Auto) >30 /hpf Urine Hyaline Casts (Auto) 1-5 /lpf Urine Epithelial Cells (Auto) 20-30 /lpf Urine Bacteria (Auto) NEG White Blood Count 9.15 K/uL Red Blood Count 5.05 M/uL Hemoglobin 14.7 g/dL Hematocrit 41.7 % Mean Corpuscular Volume 82.6 fL Mean Corpuscular Hemoglobin 29.1 pg Mean Corpuscular Hemoglobin Concent 35.3 g/dl Platelet Count 210 K/uL Mean Platelet Volume 10.1 fL Neutrophils (%) (Auto) 76.5 % Lymphocytes (%) (Auto) 13.7 % Monocytes (%) (Auto) 9.2 % Eosinophils (%) (Auto) 0.1 % Basophils (%) (Auto) 0.1 % Neutrophils # (Auto) 7.00 K/uL Lymphocytes # (Auto) 1.25 K/uL Monocytes # (Auto) 0.84 K/uL Eosinophils # (Auto) 0.01 K/uL Basophils # (Auto) 0.01 K/uL RDW Standard Deviation 41.3 fL RDW Coefficient of Variation 13.7 % Immature Granulocyte % (Auto) 0.4 % Immature Granulocyte # (Auto) 0.04 K/uL Sodium Level 135 mmol/L 139 mmol/L Potassium Level mmol/L 2.7 mmol/L 2.9 mmol/L Chloride Level 96 mmol/L 99 mmol/L Carbon Dioxide Level 27 mmol/L 30 mmol/L Anion Gap 12.0 mmol/L 10.0 mmol/L Blood Urea Nitrogen 12 mg/dl 10 mg/dl Creatinine 0.78 mg/dl 0.80 mg/dl Est Creatinine Clear Calc Drug Dose 53.9 ml/min 52.6 ml/min Estimated GFR () 79.8 77.4 Estimated GFR (Non- 68.8 66.8 BUN/Creatinine Ratio 14.7 13.0 Random Glucose 152 mg/dl 138 mg/dl Estimated Average Glucose 140 mg/dl Hemoglobin A1c 6.5 % Calcium Level 8.7 mg/dl 8.8 mg/dl Total Bilirubin 1.6 mg/dl Aspartate Amino Transf (AST/SGOT) U/L 24 U/L Alanine Aminotransferase (ALT/SGPT) 12 U/L Alkaline Phosphatase 60 U/L Troponin I 0.379 ng/ml 0.351 ng/ml Total Protein 7.0 gm/dl Albumin 3.3 gm/dl Globulin 3.7 gm/dl Albumin/Globulin Ratio 0.9 Thyroid Stimulating Hormone (TSH) 6.900 uIu/ml Free Thyroxine 1.21 ng/dl Magnesium Level 2.0 mg/dl Total Creatine Kinase 262 U/L Creatine Kinase MB 3.8 ng/ml Creatine Kinase MB Ratio 1.5 Vitamin B12 Level 286 pg/mL Test 12/02/16 16:30 39/17 19:11 12/02/16 19:14 Urine Color ORANGE Urine Appearance CLEAR Urine pH 6.5 Urine Specific [place] 1.001 Urine Protein NEG Urine Glucose (UA) NEG Urine Ketones NEG Urine Occult Blood 3+ Urine Nitrite NEG Urine Bilirubin NEG Urine Urobilinogen NEG Urine Leukocyte Esterase TRACE Urine WBC (Auto) 1-5 /hpf Urine RBC (Auto) >30 /hpf Urine Hyaline Casts (Auto) 1-5 /lpf Urine Epithelial Cells (Auto) 10-20 /lpf Urine Bacteria (Auto) NEG Assessment and Plan Npo . Discuss stent with neurolgy and the hospitalists
[2016-12-02] MEDS ORDERED: APIXABAN 2.5 MG TAB PO SCH (21:00)
[2016-12-02] MEDS: METOPROLOL TARTRATE 50 MG TAB PO SCH (21:07)
[2016-12-02] MEDS: BIMATOPROST 0.01% OP SOLN 2.5 ML BTL OP SCH (21:07)
--- NOTE | 2016-12-02 21:10 | GENITOURINARY CONSULTATION ---
DATE OF CONSULTATION: 12/02/2016 REASON FOR THE CONSULT: Gross hematuria. HISTORY OF PRESENTATION: The patient is an 86-year-old female, who was brought to the Emergency Room today by her daughter. The patient is unable to give an accurate history, although she is alert and responsive. The patient, according to the daughter, has had gross hematuria for several days and has been on Cipro, even though she had a negative urine culture. She came to the Emergency Room because of acute onset of severe confusion and according to the MRI this evening, appears, maybe, to have had a stroke. The patient has multiple medical problems, including atrial fibrillation for which she had been on blood thinner, either Eliquis or Pradaxa, previously as well as aspirin, but apparently, she had been off of that recently and had not been taking it. She denies flank pain or dysuria. She does have a history of, what appears to be, a stone on ultrasound with right hydronephrosis and some calcifications in her pelvis as well as, what appears to be, a large calcification in the left upper quadrant, which may be a stone. The patient at this time is in bed, alert and again, responsive, but unable to give any clear answer. I did speak with the resident who is working with the hospitalist taking care of this patient and they are holding anticoagulation because of the hematuria, but agree that she is at high risk being off this, because this may be cardiac in origin. Neurology has been consulted. PAST MEDICAL PROBLEMS: Include acute congestive heart failure, atrial fibrillation with hypercholesterolemia and hypertension. SOICAL HISTORY: She denies any previous smoking history, does not use alcohol or drugs. MEDICATIONS: Include acetaminophen, Norvasc 5 mg p.o. q.a.m., Eliquis 5 mg p.o. b.i.d., but she has been off of this as well as aspirin, apparently, for several days; she takes a baby aspirin 81 mg q.a.m. She takes Lipitor 10 mg p.o. q.a.m., Lumigan 1 drop per eye at bedtime, vitamin D, Alphagan P ophthalmic 1 drop per eye 3 times a day, Lasix 40 mg in the morning, levothyroxine 1 tablet in the a.m., Zestril 20 mg p.o. q.a.m., Lotemax ophthalmic 1 drop q.i.d., metoprolol 50 mg b.i.d., Requip 1 mg p.o. at bedtime, Requip 0.5 mg p.o. q.a.m., Zoloft 50 mg daily and Restoril. ALLERGIES: SHE HAS AN ALLERGY TO MEPERIDINE AND SEVERAL EYEDROPS, but no reported allergy to contrast. LABORATORY DATA: Normal H\T\H and a creatinine of 0.8. She had 2 urinalyses today that did not show bacteria or white cells, but did show greater than 30 red cells and tonight, her urine is laureano color without clots. As previously stated, she has right hydronephrosis and a KUB that shows calcifications in the left upper quadrant as well as in the pelvis. PHYSICAL EXAMINATION: GENERAL: The patient is alert and responsive, in no apparent distress. She has no respiratory distress. HEENT: Unremarkable. ABDOMEN: Has no flank pain to percussion. No abdominal discomfort. EXTREMITIES: Unremarkable. NEUROLOGIC: Again, she is confused, but responsive and alert. ASSESSMENT: Gross hematuria. Differential certainly would include stones, as the patient appears to have stones on ultrasound with some hydronephrosis. She could, in fact, have a ureteral stone. She may have a large stone in her left kidney. Although it is unclear what the etiology of the hematuria is, would advise a CAT scan with and without contrast to assess for stones as well as for other renal mass and bladder tumor. I am concerned that if the patient does get anticoagulated at the hematuria would be significantly worse, which could present its own set of problems as well as discomfort and of course, this has to be weighed against the critical nature of her stroke as well as cardiac status. I have discussed this with the resident who is with the attending. I have asked him to pass this along as the resident did answer for the attending. We will continue to follow with the patient and reassess following the CAT scan.
[2016-12-02 21:41] LABS: INR 1.2 (0.9-1.1); PROTHROMBIN TIME (PATIENT) 12.8 SECONDS (9.0-12.0)
[2016-12-02 22:09] LABS: CKMB/CK RATIO 1.8 (0-3.0)
[2016-12-03] VITALS (15 sets, daily range): BP systolic 126–176; BP diastolic 84–116; PULSE 76–172; TEMP 36.5–37.3; O2SAT 90–99
[2016-12-03] MEDS ORDERED: DIGOXIN 0.25 MG TAB PO STA (01:28)
[2016-12-03] MEDS ORDERED: METOPROLOL TARTRATE 1 MG/ML VIAL IV. PRN (01:30)
--- NOTE | 2016-12-03 01:43 | Progress Note ---
Progress Note Date of Service Dec 03, 2016. Progress Note Called by RN due to HR in 130's. Atrial fibrillation chronic. Has multiple emboli brain infarcts. Not taking eliquis as prescribed but holding off anticoagulation secondary to hematuria. Urology consulted and CT A/P shows 6mm obstructing stone causing hydronephrosis. Given presentation with a CVA. Will load with digoxin so her BP remains stable. 250 mcg stat now, repeat in 3 hours if HR > 110
[2016-12-03] MEDS: LEVOTHYROXINE 88 MCG TAB PO SCH (06:28)
[2016-12-03 06:36] LABS: BASO % 0.2 %; BASO ABS # 0.02 K/uL (0-0.2); COMPLETE YES; EOS % 0.1 %; HEMATOCRIT 44.4 % (37-47); IG% 0.4 %; LYMPH % 11.7 %; MEAN CELL VOLUME 84.1 fL (80-100); MEAN CORPUSCULAR HGB CONC 34.5 g/dl (32-36); MEAN PLATELET VOLUME 10.4 fL (7.4-10.4); MONO % 8.4 %; NEUT % 79.2 %; PLATELET COUNT 221 K/uL (130-400); RED BLOOD COUNT 5.28 M/uL (4.2-5.4); WHITE BLOOD COUNT 11.08 K/uL (4.8-10.8)
[2016-12-03 06:43] LABS: INR 1.2 (0.9-1.1); PROTHROMBIN TIME (PATIENT) 12.7 SECONDS (9.0-12.0)
[2016-12-03 07:04] LABS: BUN/CREATININE RATIO 12.5 (10-20); CALCIUM 8.6 mg/dl (8.5-10.1); CREATININE 0.72 mg/dl (0.60-1.20); POTASSIUM 3.6 mmol/L (3.5-5.1)
[2016-12-03 07:05] LABS: CHOLESTEROL/HDL RATIO 3.7
[2016-12-03] MEDS: ALPHAGAN P 0.1% SCH ×3 (08:00→15:35)
[2016-12-03] MEDS: POTASSIUM CHLORIDE INJ 10 MEQ in SODIUM CHLORIDE 0.9% 1000ML 1,000 ML IV SCH (08:21)
[2016-12-03] MEDS: ASPIRIN 81 MG ECTAB PO SCH (08:22)
[2016-12-03] MEDS: METOPROLOL TARTRATE 50 MG TAB PO SCH ×2 (08:22→19:25)
[2016-12-03] MEDS: SERTRALINE HCL 50 MG TAB PO SCH (08:22)
[2016-12-03] MEDS: ATORVASTATIN 10 MG TAB PO SCH (08:22)
[2016-12-03] MEDS ORDERED: METOPROLOL TARTRATE 1 MG/ML VIAL ONE ×2 (08:32→08:45)
--- NOTE | 2016-12-03 08:38 | Neurology Consultation ---
Neurology Consultation Date of Consultation: Dec 03, 2016. Attending Physician: Daniele Durham MD Primary Care Physician: Regino Mcleod M.D. Reason for Consultation: Patient is an 86-year-old, who was asked to see at the request of Sanna Hernandez PA-C and Dr. Durham, for neurologic consultation regarding stroke History of Present Illness Source: patient, caregiver, hospital records Patient has a history of atrial fibrillation and was on Eloquis and an 81 mg aspirin tablet daily. She has a history of hypertension and dyslipidemia no history of diabetes. She has a history of mild anxiety and depressive condition controlled on low- dose sertraline. She has restless leg syndrome and is treated with ropinirole. Apparently, she was in her usual state of health recently over the last few weeks she's had some nausea intermittently. She vomited once as well. The patient has had some balance issues and fell a couple of times in the last week or so. She's been a little bit confused. Yesterday, she was found in bed confused and she had obviously forgotten to finish her laundry, she didn't eat the day before and she was trying to put face lotion arise instead of her eyedrops. She complains of blurry vision and was dizzy recently. The patient tells me today that she knows she didn't take her pills over the last 5 days prior to admission. She arrived in the emergency room December 02 at 0703 hrs. with a temperature 37 0, pulse 73 and irregular. Respiratory rate was 18 and blood pressure is 149/99 with O2 saturation of 97%. In the emergency room, she was somewhat confused potentially to time but did answer many questions. She had no focal neurologic deficits or meningeal signs. CT scan of the head was unremarkable for acute changes. Chest x-ray showed stable cardiomegaly and no acute issues either. CT scan of the cervical spine showed no fractures. Ultrasound of the abdomen showed some nephrolithiasis, cholelithiasis, and mild right hydronephrosis. She had gross hematuria noted with a normal CBC. Her INR was low at 1.2. Chem profile revealed a glucose of 150 and hemoglobin A1c of 6.5. Urology was consulted. A stent may be placed. Carotid ultrasound showed no significant stenoses bilaterally. MRI of the brain with and without contrast showed several tiny acute strokes, one in the left centrum semiovale ovale, one in the deep periventricular white matter on the right, and 1 in the left cerebellum. There was no hemorrhage noted and there was a background of mild generalized atrophy and mild old small vessel ischemia. The patient has been in atrial fibrillation since admission and her heart rate ranges from below 100 to up to 170. The patient's blood pressure has been elevated as well as currently 144/108. She complains of generalized fatigue but no specific muscle weakness. She is not dizzy and has no pain or headache. She knows she is a little bit confused and has some numbness in her legs which she states is chronic. She has no chest pain or shortness of breath or abdominal pain. Past Medical/Surgical History Medical Problems: (1) A-fib Status: Acute (2) Abnormal LFTs (liver function tests) Status: Acute (3) Altered mental status Status: Acute (4) Hematuria Status: Acute Hypertension Dyslipidemia Restless leg syndrome Anxiety and depression History of congestive heart failure Post-tonsillectomy and hysterectomy Post-glaucoma procedures bilaterally in the spring Family History Mother age 68 of an AK. Father age 49 after committing suicide. He had known cancer and "didn't want to suffer" Social History The patient never smoked cigarettes. She does not consume alcohol. 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65 Smoking Status: Never smoker Smokeless Tobacco Use: No Alcohol Use: none Drug Use: none Marital Status: Housing Status: lives alone Occupation Status: retired Allergies Coded Allergies: Meperidine (Verified Allergy, Unknown, HIVES, 12/02/16) Uncoded Allergies: SINDRYNZA (Allergy, Mild, eye gets crusty and itches, 12/05/15) TIMOPLIE (Allergy, Mild, eye itches and gets crusty, 12/05/15) Current Inpatient Medications Current Inpatient Medications Medications (Trade) Dose Ordered Sig/Jerzy Route Start Time Stop Time Status Last Admin Dose Admin Acetaminophen (Tylenol Tab) 650 mg Q4H PRN PO 12/02/16 12:30 01/01/17 12:29 Al Hydrox/Mg Hydrox/Simethicone (Maalox Max Susp) 15 ml Q4H PRN PO 12/02/16 12:30 01/01/17 12:29 Magnesium Hydroxide (Milk Of Magnesia Susp) 30 ml Q12H PRN PO 12/02/16 12:30 01/01/17 12:29 Ondansetron HCl (Zofran Inj) 4 mg Q6H PRN IV 12/02/16 12:30 01/01/17 12:29 Aspirin (Ecotrin Tab) 81 mg QAM PO 12/03/16 09:00 01/02/17 08:59 Polyethylene (Miralax Powder Packet) 17 gm DAILY PRN PO 12/02/16 12:30 01/01/17 12:29 Miscellaneous Information (Pharmacist Discharge Med Rec Consult) 1 ea UD PRN N/A 12/02/16 12:30 01/01/17 12:29 Atorvastatin Calcium (Lipitor Tab) 10 mg QAM PO 12/03/16 09:00 01/02/17 08:59 Levothyroxine Sodium (Synthroid Tab) 88 mcg DAILYBB PO 12/03/16 06:00 01/02/17 08:59 12/03/16 06:28 88 MCG Metoprolol Tartrate (Lopressor Tab) 50 mg BID PO 12/02/16 21:00 01/01/17 20:59 12/02/16 21:07 50 MG Sertraline HCl (Zoloft Tab) 50 mg DAILY PO 12/03/16 09:00 01/02/17 08:59 Bimatoprost (Lumigan 0.01%) 1 drops HS OP 12/02/16 21:00 01/01/17 20:59 12/02/16 21:07 1 DROPS Miscellaneous Information (Order Awaiting Action) 1 ea QS N/A 12/02/16 16:00 01/01/17 15:59 Miscellaneous Information 1 ea 1 ea QS N/A 12/02/16 16:00 01/01/17 15:59 Potassium Chloride/Sodium Chloride (KCl Inj/Nss 1000ml) 1,005 ml @ 80 mls/hr [id number] IV 12/02/16 14:30 01/01/17 12:44 12/02/16 14:30 80 MLS/HR Gadobutrol (Gadavist) 8 mmol UD PRN IV 12/02/16 17:30 12/06/16 17:29 Ioversol (Optiray 320) 100 ml UD PRN IV 12/02/16 20:00 12/06/16 19:59 Review of Systems Constitutional: + fatigue, + weakness Eyes: + worsening of vision, No diplopia ENT: No hearing loss, No tinnitus Respiratory: No cough, No shortness of breath Cardiovascular: No chest pain, No palpitations Abdomen: No nausea, No pain Musculoskeletal: No joint pain, No muscle pain Genitourinary - Female: No dysuria, No urinary incontinence Neurologic: + memory loss, + numbness/tingling, + weakness, No vertigo Psychiatric: No anxiety, No depression symptoms Endocrine: + fatigue Hematologic / Lymphatic: + abnormal bleeding/bruising Integumentary: No rash Allergic / Immunologic: No hives Physical Exam Vital Signs (Past 24 Hrs): Date Time Temp Pulse Resp B/P Pulse Ox O2 Delivery O2 Flow Rate FiO2 12/03/16 04:20 176/99 12/03/16 04:18 37.0 91 18 144/108 91 12/03/16 04:00 Room Air 12/03/16 02:09 101 12/03/16 00:09 36.5 89 18 165/114 93 12/02/16 23:59 Room Air 12/02/16 20:00 Room Air 12/02/16 19:50 36.9 121 26 123/84 96 Room Air 12/02/16 19:04 154 20 150/100 96 Room Air 12/02/16 16:00 Room Air 12/02/16 15:45 36.8 85 20 149/75 96 Room Air 12/02/16 14:06 36.6 116 17 173/100 92 Room Air 12/02/16 13:02 90 18 168/94 95 Room Air 12/02/16 11:40 97 Room Air 12/02/16 11:09 88 20 151/110 97 12/02/16 09:10 88 20 151/95 93 12/02/16 08:45 84 12/02/16 08:40 Room Air 12/02/16 08:28 88 20 170/112 92 Room Air The patient is right-handed. She knew her age but not the month. The patient is awake and alert. Speech is normal without obvious aphasia or dysarthria. Mentation and thought processes are reasonable and she is oriented to place age but not time so much. She follows one-step commands fairly well and can tell right from left. She can name objects some but sometimes has word finding difficulty. Mood and affect are normal and appropriate. Appearance and grooming are normal. The discs are sharp with positive venous pulsations. There are no exudates, hemorrhages, or blood vessel changes seen. Pupils are 3mm bilaterally and reactive to light. Extraocular eye muscles are intact without nystagmus. Visual acuity and visual meraz seem normal grossly to confrontation. There are no deficits to sensation of the face bilaterally. Corneal reflexes are positive bilaterally. Facial strength and symmetry is normal bilaterally. Hearing seems intact grossly to voice and finger rub. Palate moves well without asymmetry. There is normal sternocleidomastoid and trapezius strength bilaterally. Tongue is midline with good strength bilaterally. Neck is with full range of motion without discomfort. There are no cervical bruits. There are no cranial or ocular bruits. Heart is without murmur. Cervical, thoracic, and lumbar spine are nontender to palpation. She has significant kyphoscoliosis. Gait is is not tested but stance sitting up in bed, dangling legs, is quite normal. With outstretched arms there is no drift. There are no resting tremors. She has very mild postural and action tremor bilaterally. There is no ataxia with [id number] testing. There is reasonable facility in the hands bilaterally. There are no abnormal involuntary movements noted. Motor strength is 5/5 diffusely in the arms bilaterally including deltoids, biceps, brachioradialis, wrist flexors and extensors, field nurse case manager, and intrinsic hand muscles. Motor strength is 5/5 diffusely in the legs bilaterally including hip flexors, quadriceps, hamstring, gastrocnemius, tibialis anterior, tibialis posterior, and peroneii muscles bilaterally. Toe extensors are normal and there is good bulk in the extensor digitorum brevis muscle bilaterally. The limbs have good tone without rigidity or spasticity, and there is no atrophy noted. Muscle bulk is normal, there is no tenderness, no myotonia noted to percussion, and no fasciculations seen. Sensory examination is intact to pin and touch throughout all four limbs. Reflexes are 2/4 in the biceps, triceps, and brachioradialis tendons bilaterally. Quadriceps tendon reflexes are 1/4 bilaterally and Achilles tendon reflexes are absent bilaterally. Toes are downgoing with plantar stimulation bilaterally. Peripheral pulses are present and of normal quality distally in all four limbs. There is no peripheral edema noted. Laboratory Results Past 24 Hours: 12/03/16 06:02 Red Blood Count 5.28, Mean Corpuscular Volume 84.1, Mean Corpuscular Hemoglobin 29.0, Mean Corpuscular Hemoglobin Concent 34.5, Mean Platelet Volume 10.4, Neutrophils (%) (Auto) 79.2, Lymphocytes (%) (Auto) 11.7, Monocytes (%) (Auto) 8.4, Eosinophils (%) (Auto) 0.1, Basophils (%) (Auto) 0.2, Neutrophils # (Auto) 8.78, Lymphocytes # (Auto) 1.30, Monocytes # (Auto) 0.93, Eosinophils # (Auto) 0.01, Basophils # (Auto) 0.02 12/03/16 06:02 Test 12/02/16 08:52 12/02/16 11:35 12/02/16 14:59 12/02/16 16:30 Estimated Average Glucose 140 mg/dl Hemoglobin A1c 6.5 % (4.5-5.6) Total Bilirubin 1.6 mg/dl (0.2-1) Alanine Aminotransferase (ALT/SGPT) 12 U/L (12-78) Alkaline Phosphatase 60 U/L (45-117) Total Protein 7.0 gm/dl (6.4-8.2) Albumin 3.3 gm/dl (3.4-5.0) Globulin 3.7 gm/dl (2.5-4.0) Albumin/Globulin Ratio 0.9 (0.9-2) Aspartate Amino Transf (AST/SGOT) 24 U/L (15-37) Thyroid Stimulating Hormone (TSH) 6.900 uIu/ml (0.300-4.500) Free Thyroxine 1.21 ng/dl (0.80-1.60) Magnesium Level 2.0 mg/dl (1.8-2.4) Vitamin B12 Level 286 pg/mL (211-911) Urine Color ORANGE Urine Appearance CLEAR (CLEAR) Urine pH 6.5 (4.5-7.5) Urine Specific [place] 1.001 (1.000-1.030) Urine Protein NEG (NEG) Urine Glucose (UA) NEG (NEG) Urine Ketones NEG (NEG) Urine Occult Blood 3+ (NEG) Urine Nitrite NEG (NEG) Urine Bilirubin NEG (NEG) Urine Urobilinogen NEG (NEG) Urine Leukocyte Esterase TRACE (NEG) Urine WBC (Auto) 1-5 /hpf (0-5) Urine RBC (Auto) >30 /hpf (0-4) Urine Hyaline Casts (Auto) 1-5 /lpf (0-5) Urine Epithelial Cells (Auto) 10-20 /lpf (0-5) Urine Bacteria (Auto) NEG (NEG) Test 12/02/16 21:17 12/03/16 06:02 Activated Partial Thromboplast Time 25.8 SECONDS (21.0-31.0) Partial Thromboplastin Ratio 1.0 Heparin Anti-Xa Act, Low Molec Wt 0.81 IU/ML (0 - <0.10) Total Creatine Kinase 257 U/L (26-192) Creatine Kinase MB 4.5 ng/ml (0.5-3.6) Creatine Kinase MB Ratio 1.8 (0-3.0) White Blood Count 11.08 K/uL (4.8-10.8) Red Blood Count 5.28 M/uL (4.2-5.4) Hemoglobin 15.3 g/dL (12.0-16.0) Hematocrit 44.4 % (37-47) Mean Corpuscular Volume 84.1 fL (80-100) Mean Corpuscular Hemoglobin 29.0 pg (25-34) Mean Corpuscular Hemoglobin Concent 34.5 g/dl (32-36) Platelet Count 221 K/uL (130-400) Mean Platelet Volume 10.4 fL (7.4-10.4) Neutrophils (%) (Auto) 79.2 % Lymphocytes (%) (Auto) 11.7 % Monocytes (%) (Auto) 8.4 % Eosinophils (%) (Auto) 0.1 % Basophils (%) (Auto) 0.2 % Neutrophils # (Auto) 8.78 K/uL (1.4-6.5) Lymphocytes # (Auto) 1.30 K/uL (1.2-3.4) Monocytes # (Auto) 0.93 K/uL (0.11-0.59) Eosinophils # (Auto) 0.01 K/uL (0-0.5) Basophils # (Auto) 0.02 K/uL (0-0.2) RDW Standard Deviation 43.1 fL (36.4-46.3) RDW Coefficient of Variation 14.2 % (11.5-14.5) Immature Granulocyte % (Auto) 0.4 % Immature Granulocyte # (Auto) 0.04 K/uL (0.00-0.02) Prothrombin Time 12.7 SECONDS (9.0-12.0) Prothromb Time International Ratio 1.2 (0.9-1.1) Anion Gap 9.0 mmol/L (3-11) Est Creatinine Clear Calc Drug Dose 58.4 ml/min Estimated GFR () 87.9 Estimated GFR (Non- 75.8 BUN/Creatinine Ratio 12.5 (10-20) Calcium Level 8.6 mg/dl (8.5-10.1) Triglycerides Level 105 mg/dl (0-150) Cholesterol Level 151 mg/dl (0-200) HDL Cholesterol 41 mg/dl LDL Cholesterol, Calculated 89 mg/dl VLDL Cholesterol, Calculated 21 mg/dl Cholesterol/HDL Ratio 3.7 Imaging [~ rep ct add3]] MRI OF THE BRAIN WITHOUT AND WITH IV CONTRAST CLINICAL HISTORY: Increasing confusion. Possible stroke. Altered mental status. COMPARISON STUDY: Head CT dated 12/02/2016 TECHNIQUE: MRI of the brain was performed from the vertex to the skull base utilizing various T1 and T2 weighted sequences. Following the IV administration of 8 mL of Gadavist contrast, additional enhanced images were obtained. FINDINGS: Sagittal T1, axial diffusion, proton density and T2 weighted axial, coronal FLAIR, and pre and post axial T1-weighted images were acquired. These were supplemented with post gadolinium coronal T1 weighted images. No intra or extra-axial mass lesions are visualized. There is a 2 mm focus of restricted water diffusion within the left centrum semiovale. There is a 6 mm focus of restricted water diffusion within the right periventricular white matter. There is a 3 mm focus of restricted water diffusion within the left posterior cerebellum. These foci are consistent with small acute/subacute infarcts. There is no evidence of ventricular dilatation. Proton density T2-weighted and FLAIR images reveal scattered foci of increased T2 signal within the white matter, likely on a small vessel basis. There are no abnormal flow voids. There is no evidence of pathologic enhancement. There are foci of increased T2 signal within the mastoids likely inflammatory. The study is mildly compromised due to motion artifact. IMPRESSION: 1. Subcentimeter foci of restricted water diffusion within the left centrum semiovale, right periventricular deep white matter, and left cerebellar hemisphere. The foci are indicative of with acute/subacute infarcts 2. No evidence of intracranial mass Electronically signed by: Tamir Prieto M.D. 12/02/2016 5:36 PM Impression 1. Several punctate acute CVAs noted on MRI in 3 different vascular distributions. The patient has known atrial fibrillation on anticoagulation but she had not been taking her anticoagulation prior to admission and her INR was not therapeutic. These lesions are consistent with tiny embolic infarcts. Clinically she is doing well. She does have some confusion, although I am wondering if some of her picture could be a mild underlying dementia which is made worse by different factors. On exam she has no focal neurologic deficits. There is a little bit of word finding difficulty but this is not 8 true aphasia. She has no meningeal signs. NIH stroke scale equals 1. 2. Atrial fibrillation with variable rapid ventricular rate 3. Hypertension, not adequately controlled. 4. Mild old diffuse small vessel ischemia seen on MRI Plan 1. Her anticoagulant needs to be therapeutic raising the INR to therapeutic level. 2. Control blood pressure to a mean arterial pressure of approximately 100. 3. Control heart rate as best as possible. 4. PT, OT, and speech therapy consults. 5. Continue on 81 mg aspirin tablet daily. I spoke with Dr. See and Dr. Bonilla regarding this case including differential diagnosis and treatment options.
[2016-12-03] MEDS ORDERED: NURSING VERBAL MED ORDER ONE ×3 (08:45→14:30)
[2016-12-03] MEDS ORDERED: AMLODIPINE BESYLATE 5 MG TAB PO SCH (09:00)
[2016-12-03] MEDS ORDERED: LISINOPRIL 20 MG TAB PO SCH (09:00)
[2016-12-03] MEDS ORDERED: FUROSEMIDE INJ 20 MG in SYRINGE 0 ML IV STA (09:37)
[2016-12-03] MEDS: DILTIAZEM HCL 120 MG CAPCR PO SCH (09:59)
--- NOTE | 2016-12-03 09:59 | CARDIOLOGY CONSULTATION ---
DATE OF CONSULTATION: 12/03/2016 DATE OF CONSULTATION: 12/03/2016. REQUESTING: Jeremiah Isidro. READING INTERVENTIONIST: Juan Ceja D.O, [facility]. REASON FOR CONSULTATION: Chronic atrial fibrillation with recent stroke while off anticoagulation. Dear Dr. Isidro, Thank you for requesting cardiology consultation on Nata with regards to her chronic atrial fibrillation with a rate control strategy, chronic diastolic heart failure, and recent what appears to be cardioembolic stroke. She was admitted on 12/02/2016 after appearing to be confused. Her daughter when she arrived home from work noted she was in bed and she could not recall events throughout the day. In addition, it appears that she has missed at least 4-5 days of her medications including her apixaban which she had been on to reduce her risk of stroke. The patient has also had 2 falls recently. She notes that she has a flight of stairs she needs to climb to get to her bedroom. She describes one of the falls as sliding out of bed. She has also had some mild nausea for 3-4 weeks and had vomiting the day prior to admission. She denied any slurred speech or difficulty finding words. As part of her workup, she underwent MRI of her brain which revealed subcentimeter foci of restricted diffusion in multiple areas consistent with acute to subacute infarcts, likely cardioembolic. Additionally, she had hematuria and was found to have what appears to be a kidney stone obstructing the right UPJ junction. She has been evaluated by neurology who has recommended reinitiation of her anticoagulation when it is safe from a urologic standpoint. Today, she denies any chest pain, chest pressure, chest heaviness. She seems less confused. She denies any shortness of breath, PND, orthopnea. She denies any lightheadedness, dizziness, presyncope, syncope. She denies any current lower extremity edema, although she notes that intermittently she does have some edema. She denies any fevers, chills or sweats. She does have some bruising and she notes some of that is related to her falls and some of that is related to IV sticks here in the hospital. In addition, she has had atrial fibrillation which at times has been fast and her blood pressure has been slightly elevated as well. She denies any further bleeding. She denies any dark stools or black stools. She still has some mild confusion and there is concern for some mild underlying dementia. The rest of review of systems otherwise negative. PAST MEDICAL HISTORY: 1. Chronic atrial fibrillation. 2. Chronic diastolic heart failure. 3. History of normal left ventricular systolic function. 4. Hypothyroidism. 5. Hyperlipidemia. 6. Hypertension. 7. Osteoarthritis. 8. Glaucoma. 9. 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 10. Gross hematuria with a stable hemoglobin. FAMILY HISTORY: Mom at the age of 67. Dad at 49 of a suicide after he was diagnosed with cancer. SOCIAL HISTORY: She denies any tobacco or alcohol. She is . She lives with her daughter and son-in-law. She is retired. 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 ALLERGIES: DEMEROL. MEDICATIONS: Reviewed in electronic medical record. PHYSICAL EXAMINATION: GENERAL: She is awake, alert, oriented to person, place and time, although she appears to have some slight confusion. VITAL SIGNS: Her heart rate is in the 80s currently. It has been as high as 146. Her blood pressure 154/116. Weight is 82 kilograms. HEAD, EYES, EARS, NOSE, AND THROAT: 2+ carotid upstrokes. No evidence of carotid bruits. Jugular venous pressure cannot be assessed. Sclerae is anicteric. Her hearing is mildly diminished. LUNGS: Decreased breath sounds in the bases bilaterally. No rales, rhonchi or wheezing. HEART: Irregular rate and rhythm. No appreciable murmurs, rubs or gallops. ABDOMEN: Soft, nontender, nondistended. Positive bowel sounds. EXTREMITIES: No clubbing, cyanosis or edema. She does have varicosities over her lower extremities. PSYCHIATRIC: Her affect appeared appropriate. DIAGNOSTIC STUDIES: As discussed above. Her troponin 0.408. Her BMP is normal with the magnesium at 3.6, creatinine 0.72. Hemoglobin of 15.3. Her platelet count is 221. White count today is slightly elevated at 11. Her imaging studies were also reviewed. EKG 12/02/2016 atrial fibrillation with a controlled ventricular response, PVCs, prolonged QT, nonspecific T-wave changes. No change from the prior. IMPRESSIONS: 1. Cardioembolic stroke with a significantly elevated CHADS2-VASc score of 6 while off anticoagulation. 2. Chronic diastolic heart failure with normal left ventricular function. 3. Mildly elevated troponin either related to an embolic event or demand ischemia. 4. Hematuria with a kidney stone at the right ureteropelvic junction. 5. Hypertension. 6. Atrial fibrillation with a rapid ventricular response. In discussion with urology at the bedside they do not plan to place a ureteral stent. They are hoping that the stone will go back into the renal pelvis. At this point she has no discomfort from the stone and her hematuria has resolved. Their recommendation was observation. I would recommend: 1. Stopping her IV fluids as she is eating and drinking to avoid any worsening diastolic heart failure. 2. Closely monitor her oxygenation as she already has decreased breath sounds in the bases. Her blood pressure is up and she likely would benefit from 20 mg of IV Lasix this morning. 3. I would add Cardizem-CD 120 mg daily in addition to her metoprolol which is 50 mg b.i.d. to improve her heart rate control and her blood pressure. 4. I would recommend reinitiation of her apixaban 5 mg b.i.d. as although she is greater than age 80 she weighs greater than 60 kilograms and her weight is normal. I did discuss with urology that she will be therapeutic on apixaban within 2 hours of taking the dose. Will have to closely monitor her hemoglobin and watch for hematuria. 5. With regards to her troponin elevation. This is likely either cardioembolic or related to demand ischemia and at this point I would not recommend additional cardiac workup. I will sign her out to the [facility] bricklayer apprentice who is transportation refrigeration technician for the weekend. We will continue to follow her with you. All this was discussed with urology as well as neurology and the patient. FAISAL
[2016-12-03] MEDS: APIXABAN 2.5 MG TAB PO SCH ×2 (10:00→19:26)
--- NOTE | 2016-12-03 10:10 | Progress Note ---
Subjective Date of Service: Dec 03, 2016. Subjective Pt evaluation today including: conversation w/ patient, chart review, lab review 86 year old female admitted with altered mental status, cerebral infarct w/ hx of afib and gross hematuria. Reported that she personally stopped her anticoagulants at home. CT abd/pelvis revealed a 6 mm right UPJ stone with hydro. Upon our visit today pt is pleasantly confused and has no complaints of pain. Does not appear to be in pain either. She is afebrile, tachycardia at times, afib. Her white count is slightly elevated. Hemoglobin and Hct are very good despite reports of laureano colored urine. Problem List Medical Problems: (1) A-fib Status: Acute (2) Abnormal LFTs (liver function tests) Status: Acute (3) Altered mental status Status: Acute (4) Hematuria Status: Acute Review of Systems Constitutional: No chills (confused therefore limited ROS), No fever ENT: No hearing loss Respiratory: No cough, No shortness of breath Cardiac: No chest pain Abdomen: No nausea, No pain, No vomiting Female : + hematuria, + see HPI, + urinary frequency, No dysuria Heme: + see HPI Objective Vital Signs Date Time Temp Pulse Resp B/P Pulse Ox O2 Delivery O2 Flow Rate FiO2 12/03/16 09:01 79 26 167/102 99 12/03/16 09:00 76 26 98 12/03/16 08:59 97 12/03/16 08:59 175 12/03/16 08:47 96 24 159/97 12/03/16 08:45 86 22 12/03/16 08:30 162 12/03/16 08:15 172 12/03/16 07:00 129 12/03/16 07:00 37.0 146 18 154/116 91 12/03/16 04:20 176/99 12/03/16 04:18 37.0 91 18 144/108 91 12/03/16 04:00 Room Air 12/03/16 02:09 101 12/03/16 00:09 36.5 89 18 165/114 93 12/02/16 23:59 Room Air 12/02/16 20:00 Room Air 12/02/16 19:50 36.9 121 26 123/84 96 Room Air 12/02/16 19:04 154 20 150/100 96 Room Air 12/02/16 16:00 Room Air 12/02/16 15:45 36.8 85 20 149/75 96 Room Air 12/02/16 14:06 36.6 116 17 173/100 92 Room Air 12/02/16 13:02 90 18 168/94 95 Room Air 12/02/16 11:40 97 Room Air 12/02/16 11:09 88 20 151/110 97 Physical Exam General Appearance: WD/WN, no apparent distress ENT: hearing grossly normal Respiratory/Chest: no respiratory distress, no accessory muscle use Abdomen: soft Neurologic/Psychiatric: alert, normal mood/affect, + disoriented (confused) Skin: normal color, warm/dry Laboratory Results Last 24 Hours Test 12/02/16 11:35 12/02/16 14:59 12/02/16 16:30 12/02/16 21:17 Potassium Level 2.7 mmol/L 2.9 mmol/L Aspartate Amino Transf (AST/SGOT) 24 U/L Thyroid Stimulating Hormone (TSH) 6.900 uIu/ml Free Thyroxine 1.21 ng/dl Sodium Level 139 mmol/L Chloride Level 99 mmol/L Carbon Dioxide Level 30 mmol/L Anion Gap 10.0 mmol/L Blood Urea Nitrogen 10 mg/dl Creatinine 0.80 mg/dl Est Creatinine Clear Calc Drug Dose 52.6 ml/min Estimated GFR () 77.4 Estimated GFR (Non- 66.8 BUN/Creatinine Ratio 13.0 Random Glucose 138 mg/dl Calcium Level 8.8 mg/dl Magnesium Level 2.0 mg/dl Total Creatine Kinase 262 U/L 257 U/L Creatine Kinase MB 3.8 ng/ml 4.5 ng/ml Creatine Kinase MB Ratio 1.5 1.8 Troponin I 0.351 ng/ml 0.390 ng/ml Vitamin B12 Level 286 pg/mL Urine Color ORANGE Urine Appearance CLEAR Urine pH 6.5 Urine Specific [place] 1.001 Urine Protein NEG Urine Glucose (UA) NEG Urine Ketones NEG Urine Occult Blood 3+ Urine Nitrite NEG Urine Bilirubin NEG Urine Urobilinogen NEG Urine Leukocyte Esterase TRACE Urine WBC (Auto) 1-5 /hpf Urine RBC (Auto) >30 /hpf Urine Hyaline Casts (Auto) 1-5 /lpf Urine Epithelial Cells (Auto) 10-20 /lpf Urine Bacteria (Auto) NEG Prothrombin Time 12.8 SECONDS Prothromb Time International Ratio 1.2 Activated Partial Thromboplast Time 25.8 SECONDS Partial Thromboplastin Ratio 1.0 Heparin Anti-Xa Act, Low Molec Wt 0.81 IU/ML Test 12/03/16 06:02 White Blood Count 11.08 K/uL Red Blood Count 5.28 M/uL Hemoglobin 15.3 g/dL Hematocrit 44.4 % Mean Corpuscular Volume 84.1 fL Mean Corpuscular Hemoglobin 29.0 pg Mean Corpuscular Hemoglobin Concent 34.5 g/dl Platelet Count 221 K/uL Mean Platelet Volume 10.4 fL Neutrophils (%) (Auto) 79.2 % Lymphocytes (%) (Auto) 11.7 % Monocytes (%) (Auto) 8.4 % Eosinophils (%) (Auto) 0.1 % Basophils (%) (Auto) 0.2 % Neutrophils # (Auto) 8.78 K/uL Lymphocytes # (Auto) 1.30 K/uL Monocytes # (Auto) 0.93 K/uL Eosinophils # (Auto) 0.01 K/uL Basophils # (Auto) 0.02 K/uL RDW Standard Deviation 43.1 fL RDW Coefficient of Variation 14.2 % Immature Granulocyte % (Auto) 0.4 % Immature Granulocyte # (Auto) 0.04 K/uL Prothrombin Time 12.7 SECONDS Prothromb Time International Ratio 1.2 Sodium Level 142 mmol/L Potassium Level 3.6 mmol/L Chloride Level 105 mmol/L Carbon Dioxide Level 28 mmol/L Anion Gap 9.0 mmol/L Blood Urea Nitrogen 9 mg/dl Creatinine 0.72 mg/dl Est Creatinine Clear Calc Drug Dose 58.4 ml/min Estimated GFR () 87.9 Estimated GFR (Non- 75.8 BUN/Creatinine Ratio 12.5 Random Glucose 122 mg/dl Calcium Level 8.6 mg/dl Troponin I 0.408 ng/ml Triglycerides Level 105 mg/dl Cholesterol Level 151 mg/dl HDL Cholesterol 41 mg/dl LDL Cholesterol, Calculated 89 mg/dl VLDL Cholesterol, Calculated 21 mg/dl Cholesterol/HDL Ratio 3.7 Assessment and Plan Hematuria with Right Ureteropelvic junction stone Discussed case with our urologists and neurology- given the patient's acute cerebral infarct and need for anticoagulation will hold off on immediate surgical intervention for stone as pt is denying pain, nausea. No signs of sepsis or significant blood loss- afebrile and hemoglobin and hematocrit are well within the normal range. Will avoid surgical intervention for now however in the event she develops pain , nausea, becomes septic or is hemodynamically unstable will need to intervene. Will plan for cysto ureteroscopy laser litho in the future once pt becomes more stable. Thanks for the consult- will continue to monitor closely.
--- NOTE | 2016-12-03 13:15 | ECHOCARDIOGRAM REPORT ---
*NOTICE TO RECEIVING [employer] This information is strictly Confidential and protected under [place] law. [place] law prohibits you from making any further disclosure of this information unless further disclosure is expressly permitted by the written consent of the person to whom it pertains or is authorized by law. A general authorization for the release of medical or other information is not sufficient for this purpose. Hospital accepts no responsibility if the information is made available to any other person, INCLUDING THE PATIENT. Interpretation Summary * Name: YARED SORTO Study Date: 12/03/2016 06:51 AM BP: 154/116 mmHg * Patient Location: C.2E\S\E209\S\1 HR: 97 * : 1930 (M/d/yyy) Gender: Female Height: 64 in * Age: 86 yrs Ethnicity: [place] Weight: 182 lb * Ordering Physician: Sanna Hernandez * Referring Physician: Self, Referred * Performed By: Julia Vasquez RDCS * * Reason For Study: A-fib * BSA: 1.9 m2 * -- Conclusions -- * The left ventricle is hyperdynamic. * No regional wall motion abnormalities noted. * Ejection Fraction = >70 %. * There is moderate concentric left ventricular hypertrophy. * There is moderate to severe mitral regurgitation. * There is mild to moderate tricuspid regurgitation. * Biatrial dilatation. * Atrial fibrillation throughout the study. Procedure Details * A complete two-dimensional transthoracic echocardiogram was performed (2D, M-mode, Doppler and color flow Doppler). Left Ventricle * The left ventricular cavity is small. * There is moderate concentric left ventricular hypertrophy. * The left ventricle is hyperdynamic. * Ejection Fraction = >70 %. * No regional wall motion abnormalities noted. Right Ventricle * The right ventricle is not well visualized. * The right ventricular systolic function is normal as assessed by tricuspid annular plane systolic excursion (TAPSE) (normal >1.5 cm). Atria * The left atrium is moderately dilated. * The right atrium is mild to moderately dilated. * There is no evidence of atrial septal defect, but resolution does not allow assessment for a patent foramen ovale. Mitral Valve * The mitral valve is grossly normal. * There is moderate mitral annular calcification. * There is no mitral valve stenosis. * There is moderate to severe mitral regurgitation. Tricuspid Valve * The tricuspid valve is not well visualized, but is grossly normal. * There is no tricuspid stenosis. * There is mild to moderate tricuspid regurgitation. Aortic Valve * The aortic valve is trileaflet. * The aortic valve opens well. * Aortic valve sclerosis mild, without significant aortic valvular stenosis. Pulmonic Valve * The pulmonary valve is not well seen, but the Doppler examination is normal without significant regurgitation or stenosis. Great Vessels * The aortic root is normal size. * The pulmonary is not well visualized. Pericardium/Pleural * There is no pericardial effusion. Great Vessels * Normal inferior vena cava size and collapsability with sniff indicates a normal right atrial pressure of 3 mmHg MMode 2D Measurements and Calculations IVSd 0.91 cm LVIDd 4.6 cm LVIDs 3.3 cm LVPWd 1.4 cm IVS/LVPW 0.66 FS 29.2 % EDV(Teich) 97.0 ml ESV(Teich) 42.7 ml EF(Teich) 56.0 % EDV(cubed) 96.9 ml ESV(cubed) 34.5 ml EF(cubed) 64.4 % LV mass(C)d 190.7 grams LV mass(C)dI 101.5 grams/m\S\2 CO(Teich) 6.7 l/min CI(Teich) 3.6 l/min/m\S\2 SV(Teich) 54.3 ml SI(Teich) 28.9 ml/m\S\2 CO(cubed) 7.7 l/min CI(cubed) 4.1 l/min/m\S\2 SV(cubed) 62.5 ml SI(cubed) 33.2 ml/m\S\2 Ao root diam 2.9 cm Ao root area 6.4 cm\S\2 ACS 1.5 cm LA dimension 3.5 cm asc Aorta Diam 2.3 cm LA/Ao 1.2 LVOT diam 1.9 cm LVOT area 2.7 cm\S\2 LVAd ap4 14.6 cm\S\2 LVLd ap4 5.0 cm EDV(MOD-sp4) 34.0 ml LVAs ap4 8.8 cm\S\2 LVLs ap4 4.3 cm ESV(MOD-sp4) 15.0 ml EF(MOD-sp4) 55.9 % LVAd ap2 14.7 cm\S\2 LVLd ap2 6.5 cm EDV(MOD-sp2) 28.0 ml LVAs ap2 8.5 cm\S\2 LVLs ap2 5.0 cm ESV(MOD-sp2) 13.0 ml EF(MOD-sp2) 53.6 % CO(MOD-sp4) 2.4 l/min CI(MOD-sp4) 1.3 l/min/m\S\2 SV(MOD-sp4) 19.0 ml SI(MOD-sp4) 10.1 ml/m\S\2 CO(MOD-sp2) 1.9 l/min CI(MOD-sp2) 0.99 l/min/m\S\2 SV(MOD-sp2) 15.0 ml SI(MOD-sp2) 8.0 ml/m\S\2 Doppler Measurements and Calculations MV E max mica 142.2 cm/sec MV dec time 0.12 sec Ao V2 max 88.0 cm/sec Ao max PG 3.1 mmHg Ao max PG (full) 1.2 mmHg ANMOL(V,A) 2.1 cm\S\2 ANMOL(V,D) 2.1 cm\S\2 LV V1 max PG 1.9 mmHg LV V1 max 69.1 cm/sec MR max mica 499.1 cm/sec MR max PG 99.7 mmHg MR mean mica 385.3 cm/sec MR mean PG 67.8 mmHg MR VTI 122.1 cm PA V2 max 97.3 cm/sec PA max PG 3.8 mmHg PA acc slope 670.9 cm/sec\S\2 PA acc time 0.10 sec PI max mica 144.2 cm/sec PI max PG 8.3 mmHg PI dec slope 101.8 cm/sec\S\2 PI P1/2t 415.0 msec TR max mica 264.6 cm/sec PA pr(Accel) 34.6 mmHg
--- NOTE | 2016-12-03 15:10 | Family Medicine Progress Note ---
Progress Note Date of Service Dec 03, 2016. Subjective Pt evaluation today including: conversation w/ patient, physical exam, chart review, lab review Pain: Denies Voiding: no voiding problems Patient was seen at the bedside. She was comfortably lying down on her bed. She is only oriented to person, could tell where she is, month or year. She denied any complaints. No focal neurological deficits were noted. Patient is tolerating food well. Constitutional: No fever, No weight loss Respiratory: No cough, No dyspnea on exertion, No shortness of breath, No sputum, No wheezing Cardiovascular: No chest pain, No edema Abdomen: No constipation, No diarrhea, No nausea, No pain, No vomiting Musculoskeletal: + problem reported (complains of b/l chronic leg cramps) Additional Comments: Patient is disoriented, it is difficult to obtain full ROS. Medications Current Inpatient Medications Medications (Trade) Dose Ordered Sig/Jerzy Route Start Time Stop Time Status Last Admin Dose Admin Acetaminophen (Tylenol Tab) 650 mg Q4H PRN PO 12/02/16 12:30 01/01/17 12:29 Al Hydrox/Mg Hydrox/Simethicone (Maalox Max Susp) 15 ml Q4H PRN PO 12/02/16 12:30 01/01/17 12:29 Magnesium Hydroxide (Milk Of Magnesia Susp) 30 ml Q12H PRN PO 12/02/16 12:30 01/01/17 12:29 Ondansetron HCl (Zofran Inj) 4 mg Q6H PRN IV 12/02/16 12:30 01/01/17 12:29 Aspirin (Ecotrin Tab) 81 mg QAM PO 12/03/16 09:00 01/02/17 08:59 12/03/16 08:22 81 MG Polyethylene (Miralax Powder Packet) 17 gm DAILY PRN PO 12/02/16 12:30 01/01/17 12:29 Miscellaneous Information (Pharmacist Discharge Med Rec Consult) 1 ea UD PRN N/A 12/02/16 12:30 01/01/17 12:29 Atorvastatin Calcium (Lipitor Tab) 10 mg QAM PO 12/03/16 09:00 01/02/17 08:59 12/03/16 08:22 10 MG Levothyroxine Sodium (Synthroid Tab) 88 mcg DAILYBB PO 12/03/16 06:00 01/02/17 08:59 12/03/16 06:28 88 MCG Metoprolol Tartrate (Lopressor Tab) 50 mg BID PO 12/02/16 21:00 01/01/17 20:59 12/03/16 08:22 50 MG Sertraline HCl (Zoloft Tab) 50 mg DAILY PO 12/03/16 09:00 01/02/17 08:59 12/03/16 08:22 50 MG Bimatoprost (Lumigan 0.01%) 1 drops HS OP 12/02/16 21:00 01/01/17 20:59 12/02/16 21:07 1 DROPS Miscellaneous Information (Order Awaiting Action) 1 ea QS N/A 12/02/16 16:00 01/01/17 15:59 Miscellaneous Information 1 ea 1 ea QS N/A 12/02/16 16:00 01/01/17 15:59 Potassium Chloride/Sodium Chloride (KCl Inj/Nss 1000ml) 1,005 ml @ 80 mls/hr [id number] IV 12/02/16 14:30 01/01/17 12:44 12/03/16 08:21 80 MLS/HR Gadobutrol (Gadavist) 8 mmol UD PRN IV 12/02/16 17:30 12/06/16 17:29 Ioversol (Optiray 320) 100 ml UD PRN IV 12/02/16 20:00 12/06/16 19:59 Diltiazem HCl (Cardizem Cd Cap) 120 mg QAM PO 12/03/16 09:45 01/02/17 09:44 12/03/16 09:59 120 MG Apixaban (Eliquis Tab) 5 mg BID PO 12/03/16 09:45 01/02/17 09:44 12/03/16 10:00 5 MG Objective Vital Signs Date Time Temp Pulse Resp B/P Pulse Ox O2 Delivery O2 Flow Rate FiO2 12/03/16 12:00 Nasal Cannula 2.0 12/03/16 11:00 79 21 131/87 96 12/03/16 09:01 79 26 167/102 99 12/03/16 09:00 76 26 98 12/03/16 08:59 97 12/03/16 08:59 175 12/03/16 08:47 96 24 159/97 3/10/17 08:45 86 22 12/03/16 08:30 162 12/03/16 08:15 172 12/03/16 08:00 Nasal Cannula 2.0 12/03/16 07:00 129 12/03/16 07:00 37.0 146 18 154/116 91 12/03/16 04:20 176/99 12/03/16 04:18 37.0 91 18 144/108 91 12/03/16 04:00 Room Air 12/03/16 02:09 101 12/03/16 00:09 36.5 89 18 165/114 93 12/02/16 23:59 Room Air 12/02/16 20:00 Room Air 12/02/16 19:50 36.9 121 26 123/84 96 Room Air 12/02/16 19:04 154 20 150/100 96 Room Air 12/02/16 16:00 Room Air 12/02/16 15:45 36.8 85 20 149/75 96 Room Air Physical Exam General Appearance: WD/WN, no apparent distress Neck: supple, trachea midline Respiratory/Chest: chest non-tender, no respiratory distress, no accessory muscle use, + decreased breath sounds Cardiovascular: no gallop, no murmur, + irregularly irregular Abdomen: normal bowel sounds, non tender, soft Extremities: non-tender, no calf tenderness, + pertinent finding (skin was very dry) Neurologic/Psychiatric: no motor/sensory deficits, alert, + disoriented ( Patient is only oriented to person, could not tell where she is, the month or the year) Skin: normal color, warm/dry Laboratory Results Results Past 24 Hours Test 12/02/16 16:30 12/02/16 21:17 12/03/16 06:02 Range/Units Urine Color ORANGE Urine Appearance CLEAR CLEAR Urine pH 6.5 4.5-7.5 Urine Specific [place] 1.001 1.000-1.030 Urine Protein NEG NEG Urine Glucose (UA) NEG NEG Urine Ketones NEG NEG Urine Occult Blood 3+ NEG Urine Nitrite NEG NEG Urine Bilirubin NEG NEG Urine Urobilinogen NEG NEG Urine Leukocyte Esterase TRACE NEG Urine WBC (Auto) 1-5 0-5 /hpf Urine RBC (Auto) >30 0-4 /hpf Urine Hyaline Casts (Auto) 1-5 0-5 /lpf Urine Epithelial Cells (Auto) 10-20 0-5 /lpf Urine Bacteria (Auto) NEG NEG Prothrombin Time 12.8 12.7 9.0-12.0 SECONDS Prothromb Time International Ratio 1.2 1.2 0.9-1.1 Activated Partial Thromboplast Time 25.8 21.0-31.0 SECONDS Partial Thromboplastin Ratio 1.0 Heparin Anti-Xa Act, Low Molec Wt 0.81 0 - <0.10 IU/ML Total Creatine Kinase 257 26-192 U/L Creatine Kinase MB 4.5 0.5-3.6 ng/ml Creatine Kinase MB Ratio 1.8 0-3.0 Troponin I 0.390 0.408 0-0.045 ng/ml White Blood Count 11.08 4.8-10.8 K/uL Red Blood Count 5.28 4.2-5.4 M/uL Hemoglobin 15.3 12.0-16.0 g/dL Hematocrit 44.4 37-47 % Mean Corpuscular Volume 84.1 80-100 fL Mean Corpuscular Hemoglobin 29.0 25-34 pg Mean Corpuscular Hemoglobin Concent 34.5 32-36 g/dl Platelet Count 221 130-400 K/uL Mean Platelet Volume 10.4 7.4-10.4 fL Neutrophils (%) (Auto) 79.2 % Lymphocytes (%) (Auto) 11.7 % Monocytes (%) (Auto) 8.4 % Eosinophils (%) (Auto) 0.1 % Basophils (%) (Auto) 0.2 % Neutrophils # (Auto) 8.78 1.4-6.5 K/uL Lymphocytes # (Auto) 1.30 1.2-3.4 K/uL Monocytes # (Auto) 0.93 0.11-0.59 K/uL Eosinophils # (Auto) 0.01 0-0.5 K/uL Basophils # (Auto) 0.02 0-0.2 K/uL RDW Standard Deviation 43.1 36.4-46.3 fL RDW Coefficient of Variation 14.2 11.5-14.5 % Immature Granulocyte % (Auto) 0.4 % Immature Granulocyte # (Auto) 0.04 0.00-0.02 K/uL Sodium Level 142 136-145 mmol/L Potassium Level 3.6 3.5-5.1 mmol/L Chloride Level 105 98-107 mmol/L Carbon Dioxide Level 28 21-32 mmol/L Anion Gap 9.0 3-11 mmol/L Blood Urea Nitrogen 9 7-18 mg/dl Creatinine 0.72 0.60-1.20 mg/dl Est Creatinine Clear Calc Drug Dose 58.4 ml/min Estimated GFR () 87.9 Estimated GFR (Non- 75.8 BUN/Creatinine Ratio 12.5 10-20 Random Glucose 122 70-99 mg/dl Calcium Level 8.6 8.5-10.1 mg/dl Triglycerides Level 105 0-150 mg/dl Cholesterol Level 151 0-200 mg/dl HDL Cholesterol 41 mg/dl LDL Cholesterol, Calculated 89 mg/dl VLDL Cholesterol, Calculated 21 mg/dl Cholesterol/HDL Ratio 3.7 Microbiology Results 12/02/16 Urine Culture - Preliminary, Resulted NO GROWTH - LESS THAN 1,000 COLONIES/... Assessment and Plan Ms. Villegas is an 86 y/o female with PMHx of Diastolic Congestive Heart Failure, Atrial Fibrillation, HTN, and HLD who presents to the ED complaining of increased confusion that began day before coming to the ED. * Acute Cerebral Infract - Patient waxes and weans. She was able to tell her name and but couldn' t tell where she is or the year/month. No focal neurodeficits was noted but very mild tongue deviation to the R appreciated. - MRI of the brain showed showed several tiny acute strokes - Carotid US: showed no stenosis b/l - Lipid panel is normal and HbA1c is elevated 6.5 - C/w aspirin - Consult neurology and they recommended: keep INR to therapeutic level, control blood pressure to MAP 100, PT,OT, and speech therapy consult - Her current MAP is 102 - Continue to monitor on Tele - Consulted PT/OT and speech therapy * Confusion/Disorientation - Secondary to ACS vs CVA vs Electrolyte abnormalities vs thyroid vs Medication Induced Encephalopathy - MRI showed acute CVA - Question whether abrupt cessation of medications would be a cause. - held Requip and Restoril at this time as may be possible contribution? - Repeat UA was negative and UCx showed no growth - B12 level is normal but on the lower side (286) * Chronic Atrial Fibrillation - Patient was started on Diltiazem 120mg per Cardiology given increased heart rate - C/w Metoprolol 50mg BID - Restarted Eliquis 5mg BID per Cardio * Diastolic Congestive Heart Failure - Echo showed the left ventricle is hyperdynamic, no regional wall motion abnormalities, normal EF (>70%), moderate concentric left ventricular hypertrophy, moderate to severe MR, mild to moderate TR and biatrial dilation. - Hold Amlodipine and lisinopril given patient was started on Diltiazem 120mg - C/w Atorvastatin 10 mg daily - Given Lasix 20mg IV - Hold IV to avoid volume overload and patient is tolerating food well * HTN - Patient current BP is 131/87 - Continue with Metoprolol 50mg BID - Continue with Diltiazem 120mg daily - Continue to monitor BP * Hematuria with Mild R Hydronephrosis: - CT abd/pelvis revealed a 6 mm right UPJ stone with hydronephrosis - Urology was consulted and at this moment they will hold off on any immediate surgical intervention given no symptoms, also given acute cerebral infract and currently on anticoagulant. Plan for cysto ureteroscopy laser litho in the future once patient becomes more stable. * Hypokalemia (replete) - s/p Potassium 40 mEq x 1 dose in ED * Hypothyroidism: - C/w Synthroid 88 mcg daily - TSH - elevated at 6.9, free T4 is normal (1.21) * DVT Prophylaxis: - Apixaban Code Status: FULL RESUSCITATION Reviewed: Pt Seen/Exam by Me History neurology evaluation done. no concerns by patient Constitutional: denies: fever Respiratory: negative: short of breath Cardiovascular: denies chest pain General Appearance: no apparent distress Respiratory: lungs clear, no respiratory distress Cardiovascular: no edema, irregularly irregular Neurologic/Psychiatric: alert, other (oriented to person) Skin Characteristics: warm/dry Assessment/Plan I have reviewed the medical record and performed a history and physical examination of this patient today. I have discussed the case with Dr Jim. The above note reflects my findings, conclusions, and recommendations.
[2016-12-03] MEDS: BIMATOPROST 0.01% OP SOLN 2.5 ML BTL OP SCH (19:24)
[2016-12-04 04:32] VITALS: BP 134/82; PULSE 90; TEMP 37.2; O2SAT 93
[2016-12-04] MEDS: LEVOTHYROXINE 88 MCG TAB PO SCH (05:25)
[2016-12-04 06:15] LABS: BASO % 0.5 %; BASO ABS # 0.05 K/uL (0-0.2); COMPLETE YES; EOS % 1.6 %; HEMATOCRIT 43.8 % (37-47); IG% 0.7 %; LYMPH ABS # 2.05 K/uL (1.2-3.4); MEAN CORPUSCULAR HEMOGLOBIN 28.9 pg (25-34); MEAN PLATELET VOLUME 10.5 fL (7.4-10.4); MONO % 8.8 %; NEUT % 68.4 %; PLATELET COUNT 241 K/uL (130-400); RED BLOOD COUNT 5.15 M/uL (4.2-5.4); WHITE BLOOD COUNT 10.24 K/uL (4.8-10.8)
[2016-12-04 06:24] LABS: INR 1.2 (0.9-1.1)
[2016-12-04 06:50] LABS: BUN/CREATININE RATIO 20.8 (10-20); CALCIUM 9.5 mg/dl (8.5-10.1); CREATININE 0.76 mg/dl (0.60-1.20); POTASSIUM 3.1 mmol/L (3.5-5.1)
[2016-12-04] MEDS: ALPHAGAN P 0.1% SCH ×4 (07:32→22:12)
[2016-12-04] MEDS: DILTIAZEM HCL 120 MG CAPCR PO SCH (07:33)
[2016-12-04] MEDS: ASPIRIN 81 MG ECTAB PO SCH (07:33)
[2016-12-04] MEDS: ATORVASTATIN 10 MG TAB PO SCH (07:33)
[2016-12-04] MEDS: APIXABAN 2.5 MG TAB PO SCH ×2 (07:34→21:29)
[2016-12-04] MEDS: METOPROLOL TARTRATE 50 MG TAB PO SCH ×2 (07:34→21:29)
[2016-12-04] MEDS: SERTRALINE HCL 50 MG TAB PO SCH (07:35)
[2016-12-04 07:49] VITALS: BP 149/110; PULSE 84; TEMP 37; O2SAT 94
--- NOTE | 2016-12-04 07:53 | Cardiology Follow-Up ---
Subjective Date of Service: Dec 04, 2016. Pt evaluation today including: conversation w/ patient, physical exam, lab review, review of studies, review of inpatient medication list History of Present Illness This is an 86-year-old woman with a history of permanent atrial fibrillation for which she is on diltiazem and Eliquis as an outpatient, due to medication noncompliance she presented with atrial fibrillation with rapid ventricular response and strokes. She also had a stable slight elevation of troponin (about 0.4). Her Eliquis, metoprolol and her diltiazem have been restarted orally, today she has no complaints. She is unaware of her heart rate and denies chest discomfort or shortness of breath. Social History Smoking Status: Never Smoker History of Alcohol Use: Yes (socially) Review of Systems Respiratory: No cough, No dyspnea on exertion, No shortness of breath, No sputum, No wheezing Cardiac: No chest pain, No edema Medications Cardiovascular: Item Value Date Time Diltiazem HCl 120 mg 12/03/16 0945 (Cardizem Cd Cap) QAM/PO 12/04/16 0733 Apixaban 5 mg 12/03/16 0945 (Eliquis Tab) BID/PO 12/04/16 0734 Aspirin 81 mg 12/03/16 0900 (Ecotrin Tab) QAM/PO 12/04/16 0733 Atorvastatin 10 mg 12/03/16 0900 Calcium QAM/PO 12/04/16 0733 (Lipitor Tab) Metoprolol 50 mg 12/02/16 2100 Tartrate BID/PO 12/04/16 0734 (Lopressor Tab) Objective Vital Signs Past 12 Hours Date Time Temp Pulse Resp B/P Pulse Ox O2 Delivery O2 Flow Rate FiO2 12/04/16 04:32 37.2 90 28 134/82 93 Room Air 12/04/16 04:00 Room Air 12/04/16 00:01 Room Air 12/03/16 23:15 37.3 80 20 136/89 98 Nasal Cannula 3.0 12/03/16 20:00 Room Air Last Recorded Weight-Kilograms: 82.500 Intake & Output 8-Hour Column 12/03/16 12/04/16 12/04/16 16:00 00:00 08:00 Intake Total 175 ml 200 ml 360 ml Output Total 200 ml 325 ml Balance -25 ml 200 ml 35 ml 24-Hour Column 12/04/16 08:00 Intake Total 735 ml Output Total 525 ml Balance 210 ml Physical Exam Constitutional: Level of Distress: NAD Lungs: Auscultation: breath sounds normal Cardiovascular: Heart Auscultation: irregular rate rhythm Extremities: no edema Data Laboratory Results: Last 24 Hours Test 12/04/16 05:51 White Blood Count 10.24 K/uL Red Blood Count 5.15 M/uL Hemoglobin 14.9 g/dL Hematocrit 43.8 % Mean Corpuscular Volume 85.0 fL Mean Corpuscular Hemoglobin 28.9 pg Mean Corpuscular Hemoglobin Concent 34.0 g/dl Platelet Count 241 K/uL Mean Platelet Volume 10.5 fL Neutrophils (%) (Auto) 68.4 % Lymphocytes (%) (Auto) 20.0 % Monocytes (%) (Auto) 8.8 % Eosinophils (%) (Auto) 1.6 % Basophils (%) (Auto) 0.5 % Neutrophils # (Auto) 7.01 K/uL Lymphocytes # (Auto) 2.05 K/uL Monocytes # (Auto) 0.90 K/uL Eosinophils # (Auto) 0.16 K/uL Basophils # (Auto) 0.05 K/uL RDW Standard Deviation 44.4 fL RDW Coefficient of Variation 14.3 % Immature Granulocyte % (Auto) 0.7 % Immature Granulocyte # (Auto) 0.07 K/uL Prothrombin Time 13.0 SECONDS Prothromb Time International Ratio 1.2 Sodium Level 141 mmol/L Potassium Level 3.1 mmol/L Chloride Level 103 mmol/L Carbon Dioxide Level 28 mmol/L Anion Gap 10.0 mmol/L Blood Urea Nitrogen 16 mg/dl Creatinine 0.76 mg/dl Est Creatinine Clear Calc Drug Dose 55.2 ml/min Estimated GFR () 82.3 Estimated GFR (Non- 71.0 BUN/Creatinine Ratio 20.8 Random Glucose 140 mg/dl Calcium Level 9.5 mg/dl Imaging: An echocardiogram done on 12/03/2016 showed concentric left ventricular hypertrophy and hyperdynamic left ventricular function as well as moderate to severe MR. Atrial fibrillation. Telemetry reviewed: Atrial fibrillation, rate well controlled after initially being rapid on arrival Assessment and Plan #1. CVA: Almost certainly due to discontinuation of anticoagulant. She needs to be consistent with taking her anticoagulant, I discussed this with her but I don 't know if she we'll be able to do that on her own. She seems to be recovering from that clinically. #2. Atrial fibrillation: Now back on her medications her rate is very well controlled. This is permanent so should not attempt to provide rhythm control. #3. Elevated troponin: This is stable and not consistent with myocardial infarction, most likely demand ischemia. Thank you for allowing me to participate in her care.
--- NOTE | 2016-12-04 07:54 | Family Medicine Progress Note ---
Progress Note Date of Service Dec 04, 2016. Subjective Pt evaluation today including: conversation w/ patient, physical exam, chart review, lab review, review of studies, conversation w/ life skills consultant, review of inpatient medication list Pain: none PO Intake: adequate Voiding: no voiding problems Per nurse, patient has been confused throughout the night and the morning. Patient seemed to have improved mental status while I was in the room. Patient also reports ongoing cough, denies CP, Palpitation. denies numbness, weakness , tingling. reports episode of blood in urine today. Constitutional: No chills, No fever Respiratory: + cough, + sputum, No shortness of breath, No wheezing Cardiovascular: No chest pain, No edema, No palpitations Abdomen: No constipation, No diarrhea, No nausea, No pain, No vomiting Female : + hematuria, No dysuria, No incontinence, No urinary frequency Neurologic: No balance problems, No numbness/tingling, No weakness Heme: + problem reported (Ecchymoses on EU while on coumadin) Skin: No bleeding, No new/changing skin lesions Medications Current Inpatient Medications Medications (Trade) Dose Ordered Sig/Jezry Route Start Time Stop Time Status Last Admin Dose Admin Acetaminophen (Tylenol Tab) 650 mg Q4H PRN PO 12/02/16 12:30 01/01/17 12:29 Al Hydrox/Mg Hydrox/Simethicone (Maalox Max Susp) 15 ml Q4H PRN PO 12/02/16 12:30 01/01/17 12:29 Magnesium Hydroxide (Milk Of Magnesia Susp) 30 ml Q12H PRN PO 12/02/16 12:30 01/01/17 12:29 Ondansetron HCl (Zofran Inj) 4 mg Q6H PRN IV 12/02/16 12:30 01/01/17 12:29 Aspirin (Ecotrin Tab) 81 mg QAM PO 12/03/16 09:00 01/02/17 08:59 12/04/16 07:33 81 MG Polyethylene (Miralax Powder Packet) 17 gm DAILY PRN PO 12/02/16 12:30 01/01/17 12:29 Miscellaneous Information (Pharmacist Discharge Med Rec Consult) 1 ea UD PRN N/A 12/02/16 12:30 01/01/17 12:29 Atorvastatin Calcium (Lipitor Tab) 10 mg QAM PO 12/03/16 09:00 01/02/17 08:59 12/04/16 07:33 10 MG Levothyroxine Sodium (Synthroid Tab) 88 mcg DAILYBB PO 12/03/16 06:00 01/02/17 08:59 12/04/16 05:25 88 MCG Metoprolol Tartrate (Lopressor Tab) 50 mg BID PO 12/02/16 21:00 01/01/17 20:59 12/04/16 07:34 50 MG Sertraline HCl (Zoloft Tab) 50 mg DAILY PO 12/03/16 09:00 01/02/17 08:59 12/04/16 07:35 50 MG Bimatoprost (Lumigan 0.01%) 1 drops HS OP 12/02/16 21:00 01/01/17 20:59 12/03/16 19:24 1 DROPS Miscellaneous Information (Order Awaiting Action) 1 ea QS N/A 12/02/16 16:00 01/01/17 15:59 Miscellaneous Information (Order Awaiting Action) 1 ea QS N/A 12/02/16 16:00 01/01/17 15:59 Gadobutrol (Gadavist) 8 mmol UD PRN IV 12/02/16 17:30 12/06/16 17:29 Ioversol (Optiray 320) 100 ml UD PRN IV 12/02/16 20:00 12/06/16 19:59 Diltiazem HCl (Cardizem Cd Cap) 120 mg QAM PO 12/03/16 09:45 01/02/17 09:44 12/04/16 07:33 120 MG Apixaban (Eliquis Tab) 5 mg BID PO 12/03/16 09:45 01/02/17 09:44 12/04/16 07:34 5 MG Objective Vital Signs Date Time Temp Pulse Resp B/P Pulse Ox O2 Delivery O2 Flow Rate FiO2 12/04/16 12:00 Room Air 12/04/16 11:50 36.8 72 18 122/73 92 Room Air 12/04/16 08:00 Room Air 12/04/16 07:49 37.0 84 20 149/110 94 Room Air 12/04/16 04:32 37.2 90 28 134/82 93 Room Air 12/04/16 04:00 Room Air 12/04/16 00:01 Room Air 12/03/16 23:15 37.3 80 20 136/89 98 Nasal Cannula 3.0 12/03/16 20:00 Room Air 12/03/16 19:07 37.2 82 22 126/90 90 Room Air 12/03/16 16:00 Nasal Cannula 2.0 12/03/16 15:25 36.9 81 25 141/93 90 Room Air 12/03/16 14:56 89 97 Physical Exam General Appearance: WD/WN, no apparent distress Eyes: PERRL, EOMI Neck: supple, no carotid bruits, trachea midline Respiratory/Chest: lungs clear, normal breath sounds, no respiratory distress, no accessory muscle use Cardiovascular: no edema, no JVD, + irregularly irregular Abdomen: normal bowel sounds, non tender, soft Extremities: no pedal edema, no calf tenderness, + pertinent finding ( ecchymoses on UE, Luisa variose veins(LE)) Neurologic/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, no motor/sensory deficits, alert, normal mood/affect, + disoriented (Oriented to person place ONLY)) Laboratory Results Results Past 24 Hours Test 12/04/16 05:51 Range/Units White Blood Count 10.24 4.8-10.8 K/uL Red Blood Count 5.15 4.2-5.4 M/uL Hemoglobin 14.9 12.0-16.0 g/dL Hematocrit 43.8 37-47 % Mean Corpuscular Volume 85.0 80-100 fL Mean Corpuscular Hemoglobin 28.9 25-34 pg Mean Corpuscular Hemoglobin Concent 34.0 32-36 g/dl Platelet Count 241 130-400 K/uL Mean Platelet Volume 10.5 7.4-10.4 fL Neutrophils (%) (Auto) 68.4 % Lymphocytes (%) (Auto) 20.0 % Monocytes (%) (Auto) 8.8 % Eosinophils (%) (Auto) 1.6 % Basophils (%) (Auto) 0.5 % Neutrophils # (Auto) 7.01 1.4-6.5 K/uL Lymphocytes # (Auto) 2.05 1.2-3.4 K/uL Monocytes # (Auto) 0.90 0.11-0.59 K/uL Eosinophils # (Auto) 0.16 0-0.5 K/uL Basophils # (Auto) 0.05 0-0.2 K/uL RDW Standard Deviation 44.4 36.4-46.3 fL RDW Coefficient of Variation 14.3 11.5-14.5 % Immature Granulocyte % (Auto) 0.7 % Immature Granulocyte # (Auto) 0.07 0.00-0.02 K/uL Prothrombin Time 13.0 9.0-12.0 SECONDS Prothromb Time International Ratio 1.2 0.9-1.1 Sodium Level 141 136-145 mmol/L Potassium Level 3.1 3.5-5.1 mmol/L Chloride Level 103 98-107 mmol/L Carbon Dioxide Level 28 21-32 mmol/L Anion Gap 10.0 3-11 mmol/L Blood Urea Nitrogen 16 7-18 mg/dl Creatinine 0.76 0.60-1.20 mg/dl Est Creatinine Clear Calc Drug Dose 55.2 ml/min Estimated GFR () 82.3 Estimated GFR (Non- 71.0 BUN/Creatinine Ratio 20.8 10-20 Random Glucose 140 70-99 mg/dl Calcium Level 9.5 8.5-10.1 mg/dl Assessment and Plan 86 yo F w/ hx of CHF, AFib, HTN, HLD, p/w Acute Confusion w/ MRI consistent with Acute CVA in addition to hematuria secondary to Urolithiasis * Acute Cerebral Infract - Patient's level of confusion fluctuates throughout the day. AOx2 this AM - denies numbness, weakness, tingling - MRI of the brain showed showed several tiny acute strokes - Carotid US: showed no stenosis b/l - Lipid panel is normal and HbA1c is elevated 6.5 - C/w aspirin 81 mg - Current MAP: 99, Goal 100 per Neurology - Continue to monitor on Tele * Confusion/Disorientation - likely due to CVA vs medication induced - MRI showed acute CVA - Question whether abrupt cessation of medications would be a cause. - Requip and Restoril remain held at this time as possible contributors *Hypokalemia -K 3.1 - given PO 40 meq x1 -F/U PRP in the AM * Permanent Atrial Fibrillation - rate controlled - Continue Diltiazem 120mg - C/w Metoprolol 50mg BID - Continue Eliquis 5mg BID * Diastolic Congestive Heart Failure - Echo showed the left ventricle is hyperdynamic, no regional wall motion abnormalities, normal EF (>70%), moderate concentric left ventricular hypertrophy, moderate to severe MR, mild to moderate TR and biatrial dilation. - Amlodipine and lisinopril remain held since Diltiazem started - Continue Metoprolol as above - C/w Atorvastatin 10 mg daily - Given Lasix 20mg IV - Hold IV to avoid volume overload and patient is tolerating food well * HTN - controlled - Continue with Metoprolol 50mg BID - Continue with Diltiazem 120mg daily - Continue to monitor BP * Hematuria with Mild R Hydronephrosis: - Cr stable, .76 - CT abd/pelvis revealed a 6 mm right UPJ stone with hydronephrosis - Discussed with Dr. Cui - Plan for further evaluation once patient becomes more stable. * Hypothyroidism: - C/w Synthroid 88 mcg daily * DVT Prophylaxis: - Eliquis Disposition: According to PT, patient should eb able to go home following discharge Continued [facility] stay due to: abnormal vital signs Discharge planning: home Resident Tracking Resident Involvement: Resident Care Provided Care Provided: Adult Hospital Medicine
[2016-12-04] MEDS ORDERED: POTASSIUM CHLR 20 MEQ / WTR 20 MEQ in PREMIXED WATER 100 ML IV STA (09:42)
--- NOTE | 2016-12-04 10:10 | Neurology Progress Notes ---
Neurology Progress Note Date of Service Dec 04, 2016. Subjective Patient feels better than yesterday. She has no pain or headache. She is not dizzy. She has no new weakness or numbness of the arms or legs. Nursing reports no new events and her heart rate has been improved. She has seen cardiology CBC and chem profile were largely unremarkable. Objective Date Time Temp Pulse Resp B/P Pulse Ox O2 Delivery O2 Flow Rate FiO2 12/04/16 07:49 37.0 84 20 149/110 94 Room Air 12/04/16 04:32 37.2 90 28 134/82 93 Room Air 12/04/16 04:00 Room Air 12/04/16 00:01 Room Air 12/03/16 23:15 37.3 80 20 136/89 98 Nasal Cannula 3.0 12/03/16 20:00 Room Air 12/03/16 19:07 37.2 82 22 126/90 90 Room Air 12/03/16 16:00 Nasal Cannula 2.0 12/03/16 15:25 36.9 81 25 141/93 90 Room Air 12/03/16 14:56 89 97 12/03/16 12:00 Nasal Cannula 2.0 12/03/16 11:00 79 21 131/87 96 Last 24 Hours Test 12/04/16 05:51 White Blood Count 10.24 K/uL Red Blood Count 5.15 M/uL Hemoglobin 14.9 g/dL Hematocrit 43.8 % Mean Corpuscular Volume 85.0 fL Mean Corpuscular Hemoglobin 28.9 pg Mean Corpuscular Hemoglobin Concent 34.0 g/dl Platelet Count 241 K/uL Mean Platelet Volume 10.5 fL Neutrophils (%) (Auto) 68.4 % Lymphocytes (%) (Auto) 20.0 % Monocytes (%) (Auto) 8.8 % Eosinophils (%) (Auto) 1.6 % Basophils (%) (Auto) 0.5 % Neutrophils # (Auto) 7.01 K/uL Lymphocytes # (Auto) 2.05 K/uL Monocytes # (Auto) 0.90 K/uL Eosinophils # (Auto) 0.16 K/uL Basophils # (Auto) 0.05 K/uL RDW Standard Deviation 44.4 fL RDW Coefficient of Variation 14.3 % Immature Granulocyte % (Auto) 0.7 % Immature Granulocyte # (Auto) 0.07 K/uL Prothrombin Time 13.0 SECONDS Prothromb Time International Ratio 1.2 Sodium Level 141 mmol/L Potassium Level 3.1 mmol/L Chloride Level 103 mmol/L Carbon Dioxide Level 28 mmol/L Anion Gap 10.0 mmol/L Blood Urea Nitrogen 16 mg/dl Creatinine 0.76 mg/dl Est Creatinine Clear Calc Drug Dose 55.2 ml/min Estimated GFR () 82.3 Estimated GFR (Non- 71.0 BUN/Creatinine Ratio 20.8 Random Glucose 140 mg/dl Calcium Level 9.5 mg/dl Exam: She is awake and alert. Speech is without aphasia or dysarthria. She seems to be fairly well oriented but did not know the date. She follows one-step commands well. Extraocular eye muscles are intact without nystagmus. There is no facial droop. Coordination is normal in the arms and there is no tremor, ataxia, or drift. Strength is symmetrical in all 4 limbs. Current Inpatient Medications Medications (Trade) Dose Ordered Sig/Jerzy Route Start Time Stop Time Status Last Admin Dose Admin Acetaminophen (Tylenol Tab) 650 mg Q4H PRN PO 12/02/16 12:30 01/01/17 12:29 Al Hydrox/Mg Hydrox/Simethicone (Maalox Max Susp) 15 ml Q4H PRN PO 12/02/16 12:30 01/01/17 12:29 Magnesium Hydroxide (Milk Of Magnesia Susp) 30 ml Q12H PRN PO 12/02/16 12:30 01/01/17 12:29 Ondansetron HCl (Zofran Inj) 4 mg Q6H PRN IV 12/02/16 12:30 01/01/17 12:29 Aspirin (Ecotrin Tab) 81 mg QAM PO 12/03/16 09:00 01/02/17 08:59 12/04/16 07:33 81 MG Polyethylene (Miralax Powder Packet) 17 gm DAILY PRN PO 12/02/16 12:30 01/01/17 12:29 Miscellaneous Information (Pharmacist Discharge Med Rec Consult) 1 ea UD PRN N/A 12/02/16 12:30 01/01/17 12:29 Atorvastatin Calcium (Lipitor Tab) 10 mg QAM PO 12/03/16 09:00 01/02/17 08:59 12/04/16 07:33 10 MG Levothyroxine Sodium (Synthroid Tab) 88 mcg DAILYBB PO 12/03/16 06:00 01/02/17 08:59 12/04/16 05:25 88 MCG Metoprolol Tartrate (Lopressor Tab) 50 mg BID PO 12/02/16 21:00 01/01/17 20:59 12/04/16 07:34 50 MG Sertraline HCl (Zoloft Tab) 50 mg DAILY PO 12/03/16 09:00 01/02/17 08:59 12/04/16 07:35 50 MG Bimatoprost (Lumigan 0.01%) 1 drops HS OP 12/02/16 21:00 01/01/17 20:59 12/03/16 19:24 1 DROPS Miscellaneous Information (Order Awaiting Action) 1 ea QS N/A 12/02/16 16:00 01/01/17 15:59 Miscellaneous Information (Order Awaiting Action) 1 ea QS N/A 12/02/16 16:00 01/01/17 15:59 Gadobutrol (Gadavist) 8 mmol UD PRN IV 12/02/16 17:30 12/06/16 17:29 Ioversol (Optiray 320) 100 ml UD PRN IV 12/02/16 20:00 12/06/16 19:59 Diltiazem HCl (Cardizem Cd Cap) 120 mg QAM PO 12/03/16 09:45 01/02/17 09:44 12/04/16 07:33 120 MG Apixaban 5 mg 5 mg BID PO 12/03/16 09:45 01/02/17 09:44 12/04/16 07:34 5 MG Potassium Chloride/Prmx (Kcl 10 Meq / Wtr/Premixed Water) 100 ml @ 100 mls/hr Q1H IV 12/04/16 10:15 12/04/16 12:14 Impression 1. 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 The patient has known atrial fibrillation on anticoagulation but she had not been taking her anticoagulation prior to admission and her INR was not therapeutic. These lesions are consistent with tiny embolic infarcts. Clinically she is doing well. She may have a very mild underlying dementia present also. On exam she has no focal neurologic deficits. NIH stroke scale equals 0. 2. Atrial fibrillation with variable rapid ventricular rate -this has been improved with treatment. 3. Hypertension, not adequately controlled. 4. Mild old diffuse small vessel ischemia seen on MRI Plan 1. Continue with anticoagulation at proper INR 2. Control blood pressure to a mean arterial pressure of approximately 100. 3. Control heart rate as best as possible and this has been improved 4. PT, OT, and speech therapy consults. 5. Continue on 81 mg aspirin tablet daily.
[2016-12-04] MEDS ORDERED: POTASSIUM CHLR 10MEQ / WTR IV SCH (10:15)
[2016-12-04] MEDS ORDERED: POTASSIUM CHLORIDE 20 MEQ TABCR PO ONE (11:00)
--- NOTE | 2016-12-04 11:03 | Progress Note ---
Progress Note Date of Service Dec 04, 2016. Progress Note Urology follow-up Patient is afebrile vital signs are stable She has no complaint of flank pain She is voiding without difficulty Physical exam Abdomen soft nontender there's no flank pain and percussion Labs white count of 10 Creatinine 0.7 Urine culture was negative Assessment right nephrolithiasis Since patient is only 2 days post an acute stroke plan was to not do any type of intervention for the stone emergently unless she became febrile or septic or developed intractable nausea vomiting or pain Since she has had none of this we will continue to follow this along I did review the CT scan and the stone was approximately 6 mm I believe at some point she is going to need to have something done to remove the stone as I think it is too large to pass on its own. I would Like to give her time to recover from her acute stroke first
[2016-12-04 11:50] VITALS: BP 122/73; PULSE 72; TEMP 36.8; O2SAT 92
[2016-12-04 16:14] VITALS: BP 162/102; PULSE 73; TEMP 36.6; O2SAT 92
[2016-12-04 20:02] VITALS: BP 144/109; PULSE 74; TEMP 36.9; O2SAT 95
[2016-12-04] MEDS ORDERED: POTASSIUM CHLORIDE 20 MEQ TABCR PO SCH (21:00)
[2016-12-04] MEDS: BIMATOPROST 0.01% OP SOLN 2.5 ML BTL OP SCH (21:29)
[2016-12-05] VITALS (7 sets, daily range): BP systolic 112–161; BP diastolic 67–88; PULSE 52–87; TEMP 36.8–37.1; O2SAT 88–98
[2016-12-05] MEDS: LEVOTHYROXINE 88 MCG TAB PO SCH (05:40)
[2016-12-05 05:58] LABS: BASO % 0.6 %; BASO ABS # 0.05 K/uL (0-0.2); COMPLETE YES; EOS % 3.4 %; HEMATOCRIT 39.5 % (37-47); IG% 0.6 %; LYMPH % 19.6 %; MEAN CELL VOLUME 85.1 fL (80-100); MEAN CORPUSCULAR HEMOGLOBIN 28.9 pg (25-34); MEAN CORPUSCULAR HGB CONC 33.9 g/dl (32-36); MEAN PLATELET VOLUME 10.2 fL (7.4-10.4); MONO % 12.5 %; NEUT % 63.3 %; PLATELET COUNT 205 K/uL (130-400); RED BLOOD COUNT 4.64 M/uL (4.2-5.4); WHITE BLOOD COUNT 8.15 K/uL (4.8-10.8)
[2016-12-05 06:28] LABS: BUN/CREATININE RATIO 25.3 (10-20); CALCIUM 8.5 mg/dl (8.5-10.1); CREATININE 0.68 mg/dl (0.60-1.20); POTASSIUM 3.3 mmol/L (3.5-5.1)
[2016-12-05 06:41] LABS: INR 1.2 (0.9-1.1)
[2016-12-05] MEDS: ALPHAGAN P 0.1% SCH ×2 (07:55→16:00)
[2016-12-05] MEDS: DILTIAZEM HCL 120 MG CAPCR PO SCH (07:56)
[2016-12-05] MEDS: ASPIRIN 81 MG ECTAB PO SCH (07:56)
[2016-12-05] MEDS: ATORVASTATIN 10 MG TAB PO SCH (07:57)
[2016-12-05] MEDS: APIXABAN 2.5 MG TAB PO SCH ×2 (07:57→21:35)
[2016-12-05] MEDS: SERTRALINE HCL 50 MG TAB PO SCH (07:57)
[2016-12-05] MEDS: METOPROLOL TARTRATE 50 MG TAB PO SCH ×2 (07:57→21:35)
[2016-12-05] MEDS ORDERED: POTASSIUM CHLORIDE 10 MEQ TABCR PO STA (08:09)
--- NOTE | 2016-12-05 10:23 | Family Medicine Progress Note ---
Progress Note Date of Service Dec 05, 2016. Subjective Pt evaluation today including: conversation w/ patient, physical exam, chart review, lab review, review of studies, review of inpatient medication list Pain: denies pain PO Intake: adequate Voiding: no voiding problems Patient reports no complaints. She denies further difficulty sleeping. No SOB , CP, Numbness, weakness, Tingling. Additional Comments: Constitutional: No chills, No fever Respiratory: + cough, + sputum, No shortness of breath, No wheezing Cardiovascular: No chest pain, No edema, No palpitations Abdomen: No constipation, No diarrhea, No nausea, No pain, No vomiting Female : + hematuria, No dysuria, No incontinence, No urinary frequency Neurologic: No balance problems, No numbness/tingling, No weakness Heme: + problem reported (Ecchymoses on UE while on coumadin) Skin: No bleeding, No new/changing skin lesions Medications Current Inpatient Medications Medications (Trade) Dose Ordered Sig/Jerzy Route Start Time Stop Time Status Last Admin Dose Admin Acetaminophen (Tylenol Tab) 650 mg Q4H PRN PO 12/02/16 12:30 01/01/17 12:29 Al Hydrox/Mg Hydrox/Simethicone (Maalox Max Susp) 15 ml Q4H PRN PO 12/02/16 12:30 01/01/17 12:29 Magnesium Hydroxide (Milk Of Magnesia Susp) 30 ml Q12H PRN PO 12/02/16 12:30 01/01/17 12:29 Ondansetron HCl (Zofran Inj) 4 mg Q6H PRN IV 12/02/16 12:30 01/01/17 12:29 Aspirin (Ecotrin Tab) 81 mg QAM PO 12/03/16 09:00 01/02/17 08:59 12/05/16 07:56 81 MG Polyethylene (Miralax Powder Packet) 17 gm DAILY PRN PO 12/02/16 12:30 01/01/17 12:29 Miscellaneous Information (Pharmacist Discharge Med Rec Consult) 1 ea UD PRN N/A 12/02/16 12:30 01/01/17 12:29 Atorvastatin Calcium (Lipitor Tab) 10 mg QAM PO 12/03/16 09:00 01/02/17 08:59 12/05/16 07:57 10 MG Levothyroxine Sodium (Synthroid Tab) 88 mcg DAILYBB PO 12/03/16 06:00 01/02/17 08:59 12/05/16 05:40 88 MCG Metoprolol Tartrate (Lopressor Tab) 50 mg BID PO 12/02/16 21:00 01/01/17 20:59 12/05/16 07:57 50 MG Sertraline HCl (Zoloft Tab) 50 mg DAILY PO 12/03/16 09:00 01/02/17 08:59 12/05/16 07:57 50 MG Bimatoprost (Lumigan 0.01%) 1 drops HS OP 12/02/16 21:00 01/01/17 20:59 12/04/16 21:29 1 DROPS Miscellaneous Information (Order Awaiting Action) 1 ea QS N/A 12/02/16 16:00 01/01/17 15:59 Miscellaneous Information (Order Awaiting Action) 1 ea QS N/A 12/02/16 16:00 01/01/17 15:59 Gadobutrol (Gadavist) 8 mmol UD PRN IV 12/02/16 17:30 12/06/16 17:29 Ioversol (Optiray 320) 100 ml UD PRN IV 12/02/16 20:00 12/06/16 19:59 Diltiazem HCl (Cardizem Cd Cap) 120 mg QAM PO 12/03/16 09:45 01/02/17 09:44 12/05/16 07:56 120 MG Apixaban (Eliquis Tab) 5 mg BID PO 12/03/16 09:45 01/02/17 09:44 12/05/16 07:57 5 MG Objective Vital Signs Date Time Temp Pulse Resp B/P Pulse Ox O2 Delivery O2 Flow Rate FiO2 12/05/16 07:48 37.1 66 18 161/88 95 Room Air 12/05/16 04:35 37.0 82 16 135/84 98 Nasal Cannula 2.0 12/05/16 03:43 Nasal Cannula 12/05/16 00:10 94 Nasal Cannula 2.0 12/05/16 00:05 36.8 87 18 135/80 88 Room Air 12/04/16 23:01 Room Air 12/04/16 20:02 36.9 74 20 144/109 95 Room Air 12/04/16 20:00 Room Air 12/04/16 16:14 36.6 73 23 162/102 92 Room Air 12/04/16 16:00 Room Air 12/04/16 12:00 Room Air 12/04/16 11:50 36.8 72 18 122/73 92 Room Air Physical Exam Notes: General Appearance: WD/WN, no apparent distress Eyes: PERRL, EOMI Neck: supple, no carotid bruits, trachea midline Respiratory/Chest: lungs clear, normal breath sounds, no respiratory distress, no accessory muscle use Cardiovascular: no edema, no JVD, + irregularly irregular Abdomen: normal bowel sounds, non tender, soft Extremities: no pedal edema, no calf tenderness, + pertinent finding ( ecchymoses on UE, Viktor varicose veins(LE)) Neurologic/Psychiatric: knuckle strap sewer II-XII nml as tested, no motor/sensory deficits, alert, normal mood/affect, + disoriented (Oriented to person place ONLY)) Laboratory Results Results Past 24 Hours Test 12/05/16 05:35 Range/Units White Blood Count 8.15 4.8-10.8 K/uL Red Blood Count 4.64 4.2-5.4 M/uL Hemoglobin 13.4 12.0-16.0 g/dL Hematocrit 39.5 37-47 % Mean Corpuscular Volume 85.1 80-100 fL Mean Corpuscular Hemoglobin 28.9 25-34 pg Mean Corpuscular Hemoglobin Concent 33.9 32-36 g/dl Platelet Count 205 130-400 K/uL Mean Platelet Volume 10.2 7.4-10.4 fL Neutrophils (%) (Auto) 63.3 % Lymphocytes (%) (Auto) 19.6 % Monocytes (%) (Auto) 12.5 % Eosinophils (%) (Auto) 3.4 % Basophils (%) (Auto) 0.6 % Neutrophils # (Auto) 5.15 1.4-6.5 K/uL Lymphocytes # (Auto) 1.60 1.2-3.4 K/uL Monocytes # (Auto) 1.02 0.11-0.59 K/uL Eosinophils # (Auto) 0.28 0-0.5 K/uL Basophils # (Auto) 0.05 0-0.2 K/uL RDW Standard Deviation 44.5 36.4-46.3 fL RDW Coefficient of Variation 14.3 11.5-14.5 % Immature Granulocyte % (Auto) 0.6 % Immature Granulocyte # (Auto) 0.05 0.00-0.02 K/uL Prothrombin Time 13.0 9.0-12.0 SECONDS Prothromb Time International Ratio 1.2 0.9-1.1 Sodium Level 142 136-145 mmol/L Potassium Level 3.3 3.5-5.1 mmol/L Chloride Level 104 98-107 mmol/L Carbon Dioxide Level 28 21-32 mmol/L Anion Gap 10.0 3-11 mmol/L Blood Urea Nitrogen 17 7-18 mg/dl Creatinine 0.68 0.60-1.20 mg/dl Est Creatinine Clear Calc Drug Dose 61.7 ml/min Estimated GFR () 91.8 Estimated GFR (Non- 79.2 BUN/Creatinine Ratio 25.3 10-20 Random Glucose 104 70-99 mg/dl Calcium Level 8.5 8.5-10.1 mg/dl Assessment and Plan 86 yo F w/ hx of CHF, AFib, HTN, HLD, p/w Acute Confusion w/ MRI consistent with Acute CVA in addition to hematuria secondary to Urolithiasis * Acute Cerebral Infraction - risk inc'd prior arrival due to medical non-compliance - Patient's mentation improved. AOx2 this AM - weakness improved - 12/02: MRI of the brain showed showed several tiny acute strokes - 12/02: Carotid US: showed no stenosis b/l - Lipid panel is normal and HbA1c is elevated 6.5 - C/w Aspirin 81 mg - MAP 108 this AM, Goal 100 per Neurology - Continue to monitor * Confusion/Disorientation -improved, likely near baseline, AOx 2 - likely due to CVA vs medication induced - Requip and Restoril remain held *Hypokalemia - K 3.3 - given additional PO 40 meq x1 -F/U PRP in the AM * Permanent Atrial Fibrillation - rate controlled - Continue Diltiazem 120mg - C/w Metoprolol 50mg BID - Continue Eliquis 5mg BID * Diastolic Congestive Heart Failure - Echo showed the left ventricle is hyperdynamic, no regional wall motion abnormalities, normal EF (>70%), moderate concentric left ventricular hypertrophy, moderate to severe MR, mild to moderate TR and biatrial dilation. - Amlodipine and lisinopril remain held - Continue Diltiazem, Metoprolol as above - C/w Atorvastatin 10 mg daily * HTN - controlled - Continue with Metoprolol 50mg BID - Continue with Diltiazem 120mg daily - Continue to monitor BP * Hematuria with Mild R Hydronephrosis: - Cr stable, .68 - CT abd/pelvis revealed a 6 mm right UPJ stone with hydronephrosis - Discussed with Dr. Cui - Plan for further evaluation once patient becomes more stable. * Hypothyroidism: - C/w Synthroid 88 mcg daily * DVT Prophylaxis: - Eliquis Disposition: Case management to discuss with family option for nursing facility placement. F/U tmr Discharge planning: uncertain Resident Tracking Resident Involvement: Resident Care Provided Care Provided: Adult Hospital Medicine Reviewed: Pt Seen/Exam by Me Constitutional: denies: fever Respiratory: negative: short of breath Cardiovascular: denies chest pain Gastrointestinal/Abdominal: negative: abdominal pain Neurological/Psych: negative: headache, numbness, weakness General Appearance: no apparent distress Respiratory: lungs clear, no respiratory distress Cardiovascular: irregularly irregular Gastrointestinal: normal bowel sounds, non tender, soft Neurologic/Psychiatric: alert, oriented x 3 Skin Characteristics: warm/dry Assessment/Plan I have reviewed the medical record and performed a history and physical examination of this patient today. I have discussed the case with Dr Bernstein. The above note reflects my findings, conclusions, and recommendations.
[2016-12-05] MEDS: BIMATOPROST 0.01% OP SOLN 2.5 ML BTL OP SCH (21:34)
[2016-12-06] VITALS (9 sets, daily range): BP systolic 110–142; BP diastolic 58–87; PULSE 46–75; TEMP 36.6–37; O2SAT 93–98
[2016-12-06] MEDS: LEVOTHYROXINE 88 MCG TAB PO SCH (05:24)
--- NOTE | 2016-12-06 07:35 | Progress Note ---
Subjective Date of Service: Dec 06, 2016. Subjective Pt evaluation today including: conversation w/ patient, chart review, lab review Voiding: no voiding problems 86 yo female with 6mm right UPJ stone s/p CVA. Pt denies any pain, dysuria, or n/v this morning. She is unsure if she has any gross hematuria. She remains afebrile. White count and Cr remain normal. UC&S is negative. Problem List Medical Problems: (1) A-fib Status: Acute (2) Abnormal LFTs (liver function tests) Status: Acute (3) Altered mental status Status: Acute (4) Hematuria Status: Acute Review of Systems Constitutional: No chills, No fever Respiratory: No shortness of breath Cardiac: No chest pain Abdomen: No nausea, No pain, No vomiting Female : No dysuria Heme: No abnormal bleeding/bruising Objective Vital Signs Date Time Temp Pulse Resp B/P Pulse Ox O2 Delivery O2 Flow Rate FiO2 12/06/16 07:11 36.8 67 16 142/84 93 Room Air 12/06/16 04:00 36.8 75 19 141/87 93 Room Air 12/06/16 04:00 Room Air 12/06/16 00:00 36.6 67 19 118/77 95 Room Air 12/05/16 23:59 Room Air 12/05/16 20:00 Room Air 12/05/16 19:36 36.8 62 112/69 91 Room Air 12/05/16 16:00 Room Air 12/05/16 15:30 37.1 52 18 118/67 92 Room Air 12/05/16 12:00 Room Air 12/05/16 11:40 37.0 63 18 117/80 93 Room Air 12/05/16 08:00 Room Air 12/05/16 07:48 37.1 66 18 161/88 95 Room Air Physical Exam General Appearance: no apparent distress Eyes: normal inspection ENT: hearing grossly normal Neck: no JVD Respiratory/Chest: no respiratory distress, no accessory muscle use Cardiovascular: no JVD Extremities: normal inspection Neurologic/Psychiatric: alert, normal mood/affect, oriented x 3 Skin: normal color Assessment and Plan A/P: 6mm right UPJ stone AFVSS. Pt remains stable. No evidence for sepsis. Continue to observe stone for now. Will allow her to recover from CVA prior to attempting stone management unless she develops a fever, sepsis, or renal failure. Would most likely recommend a URS as an outpatient for management of the stone given her age, recent CVA, and that she is on anticoagulation. Will plan once she is more recovered. Will continue to follow along with primary service at this time. Continued [facility] stay due to: abnormal vital signs Discharge planning: uncertain
[2016-12-06] MEDS: ALPHAGAN P 0.1% SCH ×3 (08:00→16:00)
[2016-12-06] MEDS: ASPIRIN 81 MG ECTAB PO SCH (08:14)
[2016-12-06] MEDS: ATORVASTATIN 10 MG TAB PO SCH (08:14)
[2016-12-06] MEDS: SERTRALINE HCL 50 MG TAB PO SCH (08:15)
[2016-12-06] MEDS: APIXABAN 2.5 MG TAB PO SCH ×2 (08:15→19:16)
[2016-12-06] MEDS: METOPROLOL TARTRATE 50 MG TAB PO SCH ×2 (08:15→19:16)
[2016-12-06] MEDS: DILTIAZEM HCL 120 MG CAPCR PO SCH (08:16)
[2016-12-06 09:24] LABS: HEMATOCRIT 41.6 % (37-47); MEAN CELL VOLUME 87.9 fL (80-100); MEAN CORPUSCULAR HEMOGLOBIN 29.6 pg (25-34); MEAN CORPUSCULAR HGB CONC 33.7 g/dl (32-36); MEAN PLATELET VOLUME 10.5 fL (7.4-10.4); PLATELET COUNT 238 K/uL (130-400); RED BLOOD COUNT 4.73 M/uL (4.2-5.4); WHITE BLOOD COUNT 6.75 K/uL (4.8-10.8)
[2016-12-06 09:57] LABS: BUN/CREATININE RATIO 22.6 (10-20); CALCIUM 8.8 mg/dl (8.5-10.1); CREATININE 0.78 mg/dl (0.60-1.20); POTASSIUM 3.6 mmol/L (3.5-5.1)
--- NOTE | 2016-12-06 11:21 | Family Medicine Progress Note ---
Progress Note Date of Service Dec 06, 2016. Subjective Pt evaluation today including: conversation w/ patient, conversation w/ family , physical exam Patient reports no major complaints. She still has occasional cough but it has significantly improved. no CP , SOB, Palpitation. Patient's mental status at or near baseline Additional Comments: Constitutional: No chills, No fever Respiratory: + cough(occasional), + sputum, No shortness of breath, No wheezing Cardiovascular: No chest pain, No edema, No palpitations Abdomen: No constipation, No diarrhea, No nausea, No pain, No vomiting Female : + hematuria, No dysuria, No incontinence, No urinary frequency Neurologic: No balance problems, No numbness/tingling, No weakness Heme: + problem reported (Ecchymoses on UE while on Coumadin) Skin: No bleeding, No new/changing skin lesions Medications Current Inpatient Medications Medications (Trade) Dose Ordered Sig/Jerzy Route Start Time Stop Time Status Last Admin Dose Admin Acetaminophen (Tylenol Tab) 650 mg Q4H PRN PO 12/02/16 12:30 01/01/17 12:29 12/05/16 21:45 650 MG Al Hydrox/Mg Hydrox/Simethicone (Maalox Max Susp) 15 ml Q4H PRN PO 12/02/16 12:30 01/01/17 12:29 Magnesium Hydroxide (Milk Of Magnesia Susp) 30 ml Q12H PRN PO 12/02/16 12:30 01/01/17 12:29 Ondansetron HCl (Zofran Inj) 4 mg Q6H PRN IV 12/02/16 12:30 01/01/17 12:29 Aspirin (Ecotrin Tab) 81 mg QAM PO 12/03/16 09:00 01/02/17 08:59 12/06/16 08:14 81 MG Polyethylene (Miralax Powder Packet) 17 gm DAILY PRN PO 12/02/16 12:30 01/01/17 12:29 Miscellaneous Information (Pharmacist Discharge Med Rec Consult) 1 ea UD PRN N/A 12/02/16 12:30 01/01/17 12:29 Atorvastatin Calcium (Lipitor Tab) 10 mg QAM PO 12/03/16 09:00 01/02/17 08:59 12/06/16 08:14 10 MG Levothyroxine Sodium (Synthroid Tab) 88 mcg DAILYBB PO 12/03/16 06:00 01/02/17 08:59 12/06/16 05:24 88 MCG Metoprolol Tartrate (Lopressor Tab) 50 mg BID PO 12/02/16 21:00 01/01/17 20:59 12/06/16 08:15 50 MG Sertraline HCl (Zoloft Tab) 50 mg DAILY PO 12/03/16 09:00 01/02/17 08:59 12/06/16 08:15 50 MG Bimatoprost (Lumigan 0.01%) 1 drops HS OP 12/02/16 21:00 01/01/17 20:59 12/05/16 21:34 1 DROPS Miscellaneous Information (Order Awaiting Action) 1 ea QS N/A 12/02/16 16:00 01/01/17 15:59 Miscellaneous Information (Order Awaiting Action) 1 ea QS N/A 12/02/16 16:00 01/01/17 15:59 Gadobutrol (Gadavist) 8 mmol UD PRN IV 12/02/16 17:30 12/06/16 17:29 Ioversol (Optiray 320) 100 ml UD PRN IV 12/02/16 20:00 12/06/16 19:59 Diltiazem HCl (Cardizem Cd Cap) 120 mg QAM PO 12/03/16 09:45 01/02/17 09:44 12/06/16 08:16 120 MG Apixaban (Eliquis Tab) 5 mg BID PO 12/03/16 09:45 01/02/17 09:44 12/06/16 08:15 5 MG Objective Vital Signs Date Time Temp Pulse Resp B/P Pulse Ox O2 Delivery O2 Flow Rate FiO2 12/06/16 16:00 93 Room Air 12/06/16 15:30 36.8 46 26 120/58 96 Room Air 12/06/16 12:00 93 Room Air 12/06/16 10:37 36.6 50 17 110/66 98 Room Air 12/06/16 08:00 95 Room Air 12/06/16 07:11 36.8 67 16 142/84 93 Room Air 12/06/16 04:00 36.8 75 19 141/87 93 Room Air 12/06/16 04:00 Room Air 12/06/16 00:00 36.6 67 19 118/77 95 Room Air 12/05/16 23:59 Room Air 12/05/16 20:00 Room Air 12/05/16 19:36 36.8 62 112/69 91 Room Air Physical Exam Notes: General Appearance: WD/WN, no apparent distress Eyes: PERRL, EOMI Neck: supple, no carotid bruits, trachea midline Respiratory/Chest: lungs clear, normal breath sounds, no respiratory distress, no accessory muscle use Cardiovascular: no edema, no JVD, + irregularly irregular Abdomen: normal bowel sounds, non tender, soft Extremities: no pedal edema, no calf tenderness, + pertinent finding ( ecchymoses on UE, Viktor varicose veins(LE)) 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, no motor/sensory deficits, alert, normal mood/affect, + disoriented (Oriented to person place ONLY)) Laboratory Results Results Past 24 Hours Test 12/06/16 09:15 Range/Units White Blood Count 6.75 4.8-10.8 K/uL Red Blood Count 4.73 4.2-5.4 M/uL Hemoglobin 14.0 12.0-16.0 g/dL Hematocrit 41.6 37-47 % Mean Corpuscular Volume 87.9 80-100 fL Mean Corpuscular Hemoglobin 29.6 25-34 pg Mean Corpuscular Hemoglobin Concent 33.7 32-36 g/dl RDW Standard Deviation 47.1 36.4-46.3 fL RDW Coefficient of Variation 14.5 11.5-14.5 % Platelet Count 238 130-400 K/uL Mean Platelet Volume 10.5 7.4-10.4 fL Sodium Level 143 136-145 mmol/L Potassium Level 3.6 3.5-5.1 mmol/L Chloride Level 105 98-107 mmol/L Carbon Dioxide Level 31 21-32 mmol/L Anion Gap 7.0 3-11 mmol/L Blood Urea Nitrogen 18 7-18 mg/dl Creatinine 0.78 0.60-1.20 mg/dl Est Creatinine Clear Calc Drug Dose 53.8 ml/min Estimated GFR () 79.8 Estimated GFR (Non- 68.8 BUN/Creatinine Ratio 22.6 10-20 Random Glucose 132 70-99 mg/dl Calcium Level 8.8 8.5-10.1 mg/dl Chemistry Specimen Hemolysis Assessment and Plan 86 yo F w/ hx of CHF, AFib, HTN, HLD, p/w Acute Confusion w/ MRI consistent with Acute CVA in addition to hematuria secondary to Urolithiasis * Acute Cerebral Infraction - likely secondary due to medical non-compliance with anticoagulation - Patient's mentation remains improved at or near baseline. AOx2 this AM - weakness improved - 12/02: MRI of the brain showed showed several tiny acute strokes - 12/02: Carotid US: showed no stenosis b/l - Lipid panel is normal and HbA1c is elevated 6.5 - C/w Aspirin 81 mg - Continue to monitor * Confusion/Disorientation -improved, likely near baseline, AOx 2 - likely due to CVA vs medication induced - Requip and Restoril remain held - Low B12 apossible contributor to confusion - started IV B12 injections daily *Hypokalemia - resolved -F/U PRP in the AM * Permanent Atrial Fibrillation - rate controlled - Continue Diltiazem 120mg - C/w Metoprolol 50mg BID - Continue Eliquis 5mg BID * Diastolic Congestive Heart Failure - Echo showed the left ventricle is hyperdynamic, no regional wall motion abnormalities, normal EF (>70%), moderate concentric left ventricular hypertrophy, moderate to severe MR, mild to moderate TR and biatrial dilation. - Amlodipine and lisinopril remain held - Continue Diltiazem, Metoprolol as above - C/w Atorvastatin 10 mg daily * HTN - controlled - Continue with Metoprolol 50mg BID - Continue with Diltiazem 120mg daily - Continue to monitor BP * Hematuria with Mild R Hydronephrosis: - Cr stable, .68 - CT abd/pelvis revealed a 6 mm right UPJ stone with hydronephrosis - Discussed with Urology - Plan for further evaluation outpatient * Hypothyroidism: - C/w Synthroid 88 mcg daily * DVT Prophylaxis: - Eliquis Continued [facility] stay due to: home environment unsafe for pt Discharge planning: rehab hospital Resident Tracking Resident Involvement: Resident Care Provided Care Provided: Adult Hospital Medicine Reviewed: Pt Seen/Exam by Me History Pt feels she is doing well. Family is present and feels pt is close to her usual mental status. They state that prior to this event, she had no signs of confusion. Apparently pt was on her own to take her AM meds and would sometimes not take them due to forgetting, not wanting to go back upstairs, and various other reasons. Pt has been eating without issue. Denies chest pain, SOB. No flank pain, n/v, pain with urination. Agree with HPI/ROS as noted. General Appearance: WD/WN, no apparent distress Respiratory: normal breath sounds, no respiratory distress Cardiovascular: normal peripheral pulses, regular rate, rhythm Gastrointestinal: non tender, soft Extremities: non-tender, no pedal edema Neurologic/Psychiatric: alert, normal mood/affect, oriented x 3 Skin Characteristics: normal color, warm/dry Assessment/Plan Resident Physician Supervision Note: I discussed the case with the resident and agree with the findings and plan as documented in the note. Any exceptions or clarifications are listed here: Documented By: Sheri Bar Agree with plan as outlined above. s/p CVA likely related to noncompliance with medication ? dementia R sided obstructing kidney stone, urology planning to allow pt time to stabilize from CVA prior to intervention given she is asx B12 deficiency, possibly adding to or causing dementia, monitor with injections x5 days, then weekly x4, then monthly.
[2016-12-06] MEDS: BIMATOPROST 0.01% OP SOLN 2.5 ML BTL OP SCH (19:16)
[2016-12-07 00:30] VITALS: BP 143/83; PULSE 70; TEMP 36.8; O2SAT 97
[2016-12-07 04:23] VITALS: BP 145/86; PULSE 60; TEMP 37; O2SAT 92
[2016-12-07] MEDS: LEVOTHYROXINE 88 MCG TAB PO SCH (05:33)
[2016-12-07 06:28] LABS: HEMATOCRIT 41.1 % (37-47); MEAN CELL VOLUME 87.8 fL (80-100); MEAN CORPUSCULAR HEMOGLOBIN 29.5 pg (25-34); MEAN CORPUSCULAR HGB CONC 33.6 g/dl (32-36); MEAN PLATELET VOLUME 10.6 fL (7.4-10.4); PLATELET COUNT 245 K/uL (130-400); RED BLOOD COUNT 4.68 M/uL (4.2-5.4); WHITE BLOOD COUNT 7.84 K/uL (4.8-10.8)
[2016-12-07 06:52] LABS: CALCIUM 9.1 mg/dl (8.5-10.1); CREATININE 0.67 mg/dl (0.60-1.20); POTASSIUM 3.6 mmol/L (3.5-5.1)
[2016-12-07 07:37] VITALS: BP 139/82; PULSE 66; TEMP 37.2; O2SAT 94
--- NOTE | 2016-12-07 08:03 | Family Medicine Progress Note ---
Progress Note Date of Service Dec 07, 2016. Subjective Pt evaluation today including: conversation w/ patient, physical exam, chart review, lab review, review of studies, review of inpatient medication list Pain: denies pain PO Intake: adequate Voiding: no voiding problems No acute events overnight. Patient reports no complaints. No CP , No SOB, Palpitation, NO Numbness, weakness, tingling. No hematuria Constitutional: No chills, No fever, No weakness Respiratory: No cough, No shortness of breath, No sputum Cardiovascular: No chest pain, No edema, No palpitations Abdomen: No constipation, No diarrhea, No pain, No vomiting Female : No dysuria, No hematuria, No urinary frequency Neurologic: No numbness/tingling, No weakness Skin: No color change, No itch, No rash Medications Current Inpatient Medications Medications (Trade) Dose Ordered Sig/Jerzy Route Start Time Stop Time Status Last Admin Dose Admin Acetaminophen (Tylenol Tab) 650 mg Q4H PRN PO 12/02/16 12:30 01/01/17 12:29 12/05/16 21:45 650 MG Al Hydrox/Mg Hydrox/Simethicone (Maalox Max Susp) 15 ml Q4H PRN PO 12/02/16 12:30 01/01/17 12:29 Magnesium Hydroxide (Milk Of Magnesia Susp) 30 ml Q12H PRN PO 12/02/16 12:30 01/01/17 12:29 Ondansetron HCl (Zofran Inj) 4 mg Q6H PRN IV 12/02/16 12:30 01/01/17 12:29 Aspirin (Ecotrin Tab) 81 mg QAM PO 12/03/16 09:00 01/02/17 08:59 12/06/16 08:14 81 MG Polyethylene (Miralax Powder Packet) 17 gm DAILY PRN PO 12/02/16 12:30 01/01/17 12:29 Miscellaneous Information (Pharmacist Discharge Med Rec Consult) 1 ea UD PRN N/A 12/02/16 12:30 01/01/17 12:29 Atorvastatin Calcium (Lipitor Tab) 10 mg QAM PO 12/03/16 09:00 01/02/17 08:59 12/06/16 08:14 10 MG Levothyroxine Sodium (Synthroid Tab) 88 mcg DAILYBB PO 12/03/16 06:00 01/02/17 08:59 12/07/16 05:33 88 MCG Metoprolol Tartrate (Lopressor Tab) 50 mg BID PO 12/02/16 21:00 01/01/17 20:59 12/06/16 19:16 50 MG Sertraline HCl (Zoloft Tab) 50 mg DAILY PO 12/03/16 09:00 01/02/17 08:59 12/06/16 08:15 50 MG Bimatoprost (Lumigan 0.01%) 1 drops HS OP 12/02/16 21:00 01/01/17 20:59 12/06/16 19:16 1 DROPS Miscellaneous Information (Order Awaiting Action) 1 ea QS N/A 12/02/16 16:00 01/01/17 15:59 Miscellaneous Information (Order Awaiting Action) 1 ea QS N/A 12/02/16 16:00 01/01/17 15:59 Diltiazem HCl (Cardizem Cd Cap) 120 mg QAM PO 12/03/16 09:45 01/02/17 09:44 12/06/16 08:16 120 MG Apixaban (Eliquis Tab) 5 mg BID PO 12/03/16 09:45 01/02/17 09:44 12/06/16 19:16 5 MG Cyanocobalamin (Vitamin B-12 Inj) 1,000 mcg DAILY IM 12/07/16 09:00 01/06/17 08:59 Objective Physical Exam General Appearance: WD/WN, no apparent distress Eyes: PERRL, EOMI Neck: supple, no carotid bruits, trachea midline Respiratory/Chest: lungs clear, normal breath sounds, no respiratory distress Cardiovascular: no edema, no JVD, + irregularly irregular Abdomen: normal bowel sounds, non tender, soft Extremities: no pedal edema, no calf tenderness Neurologic/Psychiatric: alert, normal mood/affect, oriented x 3 Skin: normal color, warm/dry Assessment and Plan 86 yo F w/ hx of CHF, AFib, HTN, HLD, p/w Acute Confusion w/ MRI consistent with Acute CVA in addition to hematuria secondary to Urolithiasis * Acute Cerebral Infraction - likely secondary due to medical non-compliance with anticoagulation - Patient's mentation remains improved at or near baseline. AOx3 this AM - weakness improved - 12/02: MRI of the brain showed showed several tiny acute strokes - 12/02: Carotid US: showed no stenosis b/l - Lipid panel is normal and HbA1c is elevated 6.5 - C/w Aspirin 81 mg - Continue to monitor * Confusion/Disorientation -improved, likely near baseline, AOx 3 - likely due to CVA vs medication induced - Requip and Restoril remain held - Low B12 a possible contributor to confusion - Continue IV B12 injections daily *Hypokalemia - resolved -F/U PRP in the AM * Permanent Atrial Fibrillation - rate controlled - Continue Diltiazem 120mg - C/w Metoprolol 50mg BID - Continue Eliquis 5mg BID * Diastolic Congestive Heart Failure - Echo showed the left ventricle is hyperdynamic, no regional wall motion abnormalities, normal EF (>70%), moderate concentric left ventricular hypertrophy, moderate to severe MR, mild to moderate TR and biatrial dilation. - Amlodipine and lisinopril remain held - Continue Diltiazem, Metoprolol as above - C/w Atorvastatin 10 mg daily * HTN - controlled - Continue with Metoprolol 50mg BID - Continue with Diltiazem 120mg daily - Continue to monitor BP * Hematuria with Mild R Hydronephrosis: - Cr stable, .68 - CT abd/pelvis revealed a 6 mm right UPJ stone with hydronephrosis - Discussed with Urology - Plan for further evaluation outpatient * Hypothyroidism: - C/w Synthroid 88 mcg daily * DVT Prophylaxis: - Eliquis Disposition: Discussed with Case Management, Patient prefers [facility] referral. Family prefers [facility]. Case management to speak again with family for discharge planning. Will follow up Continued [facility] stay due to: home environment unsafe for pt Discharge planning: rehab hospital Resident Tracking Resident Involvement: Resident Care Provided Care Provided: Adult Hospital Medicine Reviewed: Pt Seen/Exam by Me History Pt feels she is doing well. She has been eating well, no intolerance to PO. No chest pain or SOB. Agree with HPI/ROS as noted. General Appearance: WD/WN, no apparent distress Respiratory: normal breath sounds, no respiratory distress Cardiovascular: normal peripheral pulses, regular rate, rhythm Gastrointestinal: non tender, soft Extremities: non-tender, no pedal edema Neurologic/Psychiatric: alert, normal mood/affect Skin Characteristics: normal color, warm/dry Assessment/Plan Resident Physician Supervision Note: I discussed the case with the resident and agree with the findings and plan as documented in the note. Any exceptions or clarifications are listed here: Documented By: Sheri Bar Agree with plan as outlined above. s/p CVA likely related to noncompliance with medication ? dementia R sided obstructing kidney stone, urology planning to allow pt time to stabilize from CVA prior to intervention given she is asx B12 deficiency, possibly adding to or causing dementia, monitor with injections x5 days, then weekly x4, then monthly. Awaiting placement
[2016-12-07] MEDS: ALPHAGAN P 0.1% SCH ×3 (08:51→16:00)
[2016-12-07] MEDS: ATORVASTATIN 10 MG TAB PO SCH (08:55)
[2016-12-07] MEDS: ASPIRIN 81 MG ECTAB PO SCH (08:55)
[2016-12-07] MEDS: METOPROLOL TARTRATE 50 MG TAB PO SCH (08:55)
[2016-12-07] MEDS: SERTRALINE HCL 50 MG TAB PO SCH (08:55)
[2016-12-07] MEDS: APIXABAN 2.5 MG TAB PO SCH (08:55)
[2016-12-07] MEDS: DILTIAZEM HCL 120 MG CAPCR PO SCH (08:56)
[2016-12-07] MEDS ORDERED: CYANOCOBALAMIN 1000 MCG/ML VIAL IM SCH (09:00)
--- NOTE | 2016-12-07 11:16 | Progress Note ---
Progress Note Date of Service Dec 07, 2016. Progress Note Patient afebrile vital signs are stable She denies any flank pain Creatinine and hematocrit are stable Mentally she seems more alert today Assessment Right ureteropelvic junction stone Patient remains asymptomatic without any signs of sepsis and no pain will continue to watch this for now she is just recovering from a recent stroke Will probably need some intervention for the stone in the future She should follow-up in our office after discharge
[2016-12-07 11:40] VITALS: BP 130/66; PULSE 52; TEMP 36.9; O2SAT 93
[2016-12-07 12:28] VITALS: BP 128/88; PULSE 50; TEMP 36.9; O2SAT 94
[2016-12-07] MEDS ORDERED: CYNI1000 IM (13:45)
--- NOTE | 2016-12-07 13:48 | Discharge Instructions ---
Discharge Instructions Date of Service Dec 07, 2016. Admission Reason for Admission: Altered Mental Status Discharge Discharge Diagnosis / Problem: CVA Discharge Goals Goal(s): Decrease discomfort, Improve function, Increase independence, Improve disease control, Improve nutritional status, Learn about illness, Diagnostic testing, Therapeutic intervention, Screening, Prevent Disease Progression, Specific goals Activity Recommendations Activity Level: Assistance Required Therapies: Physical Therapy, Occupational Therapy, Speech Therapy . Additional Information Patient informed of condition: Yes Advance Directives: Yes DNR: Yes Level of Care: Acute Rehab Communicable Disease: No Prognosis: Stable Instructions / Follow-Up Instructions / Follow-Up 86 yo F w/ hx of CHF, AFib, HTN, HLD, p/w Acute Confusion w/ MRI consistent with Acute CVA in addition to hematuria secondary to Urolithiasis * Acute Cerebral Infraction - likely secondary due to medical non-compliance with anticoagulation - Patient's mentation remains improved at or near baseline. AOx3 this AM - weakness improved - 12/02: MRI of the brain showed showed several tiny acute strokes - 12/02: Carotid US: showed no stenosis b/l - Lipid panel is normal and HbA1c is elevated 6.5 - C/w Aspirin 81 mg _ Patient will need follow up appointment in [address] Luigi Sanabria ( Neurology) * Confusion/Disorientation -improved, likely near baseline, AOx 3 - likely due to CVA vs medication induced - Requip and Restoril restarted at discharge - Low B12 a possible contributor to confusion - Continue IV B12 injections daily FOR 4 MORE DAYS THEN 1 X A WEEK FOR 1 MONTH *Hypokalemia - resolved -F/U PRP in the AM * Permanent Atrial Fibrillation - rate controlled - Continue Diltiazem 120mg - C/w Metoprolol 50mg BID - Continue Eliquis 5mg BID * Diastolic Congestive Heart Failure - Echo showed the left ventricle is hyperdynamic, no regional wall motion abnormalities, normal EF (>70%), moderate concentric left ventricular hypertrophy, moderate to severe MR, mild to moderate TR and biatrial dilation. - Amlodipine and lisinopril remain held - Continue Diltiazem, Metoprolol as above - C/w Atorvastatin 10 mg daily * HTN - controlled - Continue with Metoprolol 50mg BID - Continue with Diltiazem 120mg daily - Continue to monitor BP * Hematuria with Mild R Hydronephrosis: - Cr stable, .68 - CT abd/pelvis revealed a 6 mm right UPJ stone with hydronephrosis - Discussed with Urology - Plan for further evaluation outpatient -Patient will need followup appointment with Dr. Alex (Urology) * Hypothyroidism: - C/w Synthroid 88 mcg daily * DVT Prophylaxis: - Eliquis Current Hospital Diet Patient's current hospital diet: Low Sodium Diet (2gm Na), AHA Diet (Heart Healthy) Discharge Diet Recommended Diet: AHA Diet (Heart Healthy), Low Sodium Diet (2gm Na) Pending Studies Studies pending at discharge: no Physician Orders On Transfer Additional Orders: -Daily CBC, BMP. (Patiebt has 6mm Ureteral Stone) Evaluate for Kidney function, -Assess for recurrence of Hematuria -Patient will need follow up appointment in [address] Luigi Sanabria ( Neurology) -Patient will need followup appointment with Dr. Alex (Urology) for evaluation of Ureteral Stone - Continue IV B12 injections daily FOR 4 MORE DAYS THEN 1 X A WEEK FOR 1 MONTH Laboratory Results Hemoglobin A1c Test 12/02/16 08:52 Range/Units Estimated Average Glucose 140 mg/dl Hemoglobin A1c 6.5 H 4.5-5.6 % Lipid Panel Test 12/03/16 06:02 Range/Units Triglycerides Level 105 0-150 mg/dl Cholesterol Level 151 0-200 mg/dl HDL Cholesterol 41 mg/dl Cholesterol/HDL Ratio 3.7 LDL Cholesterol, Calculated 89 mg/dl Medical Emergencies . Who to Call and When: Medical Emergencies: If at any time you feel your situation is an emergency, please call 911 immediately. . Non-Emergent Contact Non-Emergency issues call your: Primary Care Provider, Neurologist, Urologist Call Non-Emergent contact if: your pain is not controlled, your pain is worsening, your pain is unusual for you, your pain is concerning you, wound has increased drainage, wound has increased redness, wound has increased pain, you have any medication questions . . "Provider Documentation" section prepared by Jackson Bernstein. Core Measure Problem Core Measures: Stroke Stroke Core Measures Reason no t-PA for Stroke: Treatment not indicated Reason no antithrom by day 2: Treatment provided - N/A Reason no antithrom at D/C: Treatment provided - N/A Reason no statin at D/C: Treatment provided - N/A Reason no anticoag w/a fib: Treatment provided - N/A
[2016-12-07 14:57] VITALS: BP 114/66; PULSE 62; TEMP 36.7; O2SAT 93
--- NOTE | 2016-12-07 17:25 | Discharge Summary ---
Discharge Summary Date of Service Dec 07, 2016. (Jackson Bernstein MD) Discharge Summary Admission Date: Dec 02, 2016 at 12:28 Discharge Date: Dec 07, 2016 Discharge Disposition: Rehab Principal Diagnosis: CVA Problems/Secondary Diagnoses: Hematuria, Nephrolithiasis Procedures: HEAD CT NONCONTRAST CT DOSE: 1043.08 mGy.cm HISTORY: Mental status change altered mental status TECHNIQUE: Multiaxial CT images of the head were performed without the use of intravenous contrast. Comparison: None. Findings: The paranasal sinuses and mastoid air cells are clear. The calvarium and skull base are intact. The ventricles and sulci are within normal limits. There is no mass, hematoma, midline shift, or acute infarct. Impression: No acute intracranial abnormality. CHEST ONE VIEW PORTABLE CLINICAL HISTORY: altered mental status dyspnea COMPARISON STUDY: 04/18/2016 FINDINGS: Moderate stable cardiomegaly. Calcification mitral annulus. Lungs are clear. Diaphragms smooth. Fibrotic change left pulmonary apex. IMPRESSION: Stable cardiomegaly. Calcification mitral annulus. The lungs are clear. ] CERVICAL SPINE CT CT DOSE: HISTORY: fall TECHNIQUE: Multiaxial CT images of the cervical spine were performed and reformatted in the sagittal and coronal plane without the use of contrast. COMPARISON: None. FINDINGS: No fractures. No subluxation. Prevertebral soft tissues and the C1-C2 interval are intact. No pneumothorax. Mild disc space narrowing at C4-C6. IMPRESSION: No fractures within the cervical spine. ULTRASOUND RIGHT UPPER QUADRANT ABDOMEN CLINICAL HISTORY: Change in mental status. Fall. COMPARISON STUDY: No priors. TECHNIQUE: Real-time, grayscale, and color flow sonography of the right upper quadrant of the abdomen was performed. Images are reviewed in the transverse and longitudinal planes. FINDINGS: Liver: The liver is enlarged, measuring 19.4 cm in length. The liver is normal in echotexture. There is mild central intrahepatic biliary ductal dilatation. The main portal vein is patent. There are least 2 hepatic cysts measure up to 2.8 cm. Gallbladder: The gallbladder is mildly distended. A large shadowing mobile gallstone is identified measuring at least 2.8 cm. There is no gallbladder wall thickening or pericholecystic fluid. A sonographic Hutchins's sign is reportedly absent. The common bile duct measures up to 0.8 cm in diameter. Pancreas: Visualized portions of the pancreatic head and body are normal in appearance. The splenic vein is patent. Right kidney: Survey images of the right kidney demonstrate cortical atrophy. There is mild right-sided hydronephrosis. Nonobstructing right renal calculi are noted. Ascites: None. IMPRESSION: 1. Cholelithiasis without sonographic evidence of acute cholecystitis. 2. Nephrolithiasis. 3. There is mild right-sided hydronephrosis. An obstructing right ureteral calculus is not excluded. Clinical correlation will be required. Consider radiographic correlation. ULTRASOUND OF THE CAROTID ARTERIES CLINICAL HISTORY: Stroke COMPARISON STUDY: None. TECHNIQUE: Real-time, grayscale, and color Doppler sonography of the carotid arteries was performed. Imaging reviewed in the transverse and longitudinal planes. NASCET criteria was utilized for stenosis calcification. FINDINGS: There is mild to moderate atherosclerotic plaque present . The peak systolic velocity within the right internal carotid artery is 57 cm/sec. The systolic velocity ratio of right internal to common carotid artery is 0.8. The peak systolic velocity within the left internal carotid artery is 42 cm/sec. The systolic velocity ratio left internal to common carotid artery is 0.6. Antegrade flow is seen in the vertebral arteries. The external carotid arteries are patent. Blood pressure in the right arm measured 168 mm/Hg. Blood pressure in the left arm measured 163 mm/Hg. IMPRESSION: No evidence of hemodynamically significant carotid stenosis. MRI OF THE BRAIN WITHOUT AND WITH IV CONTRAST CLINICAL HISTORY: Increasing confusion. Possible stroke. Altered mental status. COMPARISON STUDY: Head CT dated 12/02/2016 TECHNIQUE: MRI of the brain was performed from the vertex to the skull base utilizing various T1 and T2 weighted sequences. Following the IV administration of 8 mL of Gadavist contrast, additional enhanced images were obtained. FINDINGS: Sagittal T1, axial diffusion, proton density and T2 weighted axial, coronal FLAIR, and pre and post axial T1-weighted images were acquired. These were supplemented with post gadolinium coronal T1 weighted images. No intra or extra-axial mass lesions are visualized. There is a 2 mm focus of restricted water diffusion within the left centrum semiovale. There is a 6 mm focus of restricted water diffusion within the right periventricular white matter. There is a 3 mm focus of restricted water diffusion within the left posterior cerebellum. These foci are consistent with small acute/subacute infarcts. There is no evidence of ventricular dilatation. Proton density T2-weighted and FLAIR images reveal scattered foci of increased T2 signal within the white matter, likely on a small vessel basis. There are no abnormal flow voids. There is no evidence of pathologic enhancement. ] KUB CLINICAL HISTORY: Abnormal ultrasound demonstrating right-sided hydronephrosis COMPARISON STUDY: Ultrasound the abdomen dated 12/02/2016 FINDINGS: There is no pathologic bowel dilatation. Atheromatous changes are present within the aorta. There is calcification within the mitral valve annulus. No renal calculi are visualized. There are tiny nonspecific pelvic basin calcifications. There is a nonspecific 33 mm left upper quadrant calcification. IMPRESSION: 1. No renal calculi identified on conventional radiographic imaging 2. Nonspecific pelvic basin calcifications 3. No evidence of pathologic bowel dilatation 4. Nonspecific 33 mm left upper quadrant calcification Consultations: Neurology Cardiology Urology (Jackson Bernstein MD) Medication Reconciliation New Medications: Cyanocobalamin (Cyanocobalamin) 1,000 Mcg/Ml Inj 1000 MCG IM DAILY for 8 Days, #8 1 Refill Please administer Daily for 4 days then ONLY Once per week for 1 month Recheck B12 Level at Lab at this time Continued Medications: Acetaminophen (Tylenol) 500 Mg Tab 1000 MG PO TID, TAB Amlodipine (Norvasc) 5 Mg Tab 5 MG PO QAM, TAB Apixaban (Eliquis) 2.5 Mg Tab 5 MG PO BID for 30 Days, #60 TAB 0 Refills Aspirin (Aspirin Ec) 81 Mg Tab 81 MG PO QAM Atorvastatin (Lipitor) 10 Mg Tab 10 MG PO QAM, TAB Bimatoprost (Lumigan) 0.01 % Anastasia 1 DROPS OP HS Brimonidine Tartrate (Alphagan P Oph) 0.1 % Anastasia 1 DROP OP TID, BTL Cholecalciferol (Vitamin D High Potency) 1,000 Unit Cap 2000 INTERUNIT PO QAM Furosemide (Furosemide) 40 Mg Tab 40 MG PO QAM for 30 Days, #30 TAB 0 Refills Levothyroxine Sodium (Levothyroxine Sodium) 88 Mcg Tab 1 TAB PO QAM Lisinopril (Zestril) 20 Mg Tab 20 MG PO QAM, TAB Loteprednol Etabonate (Lotemax 0.5% Oph) 0.5 % Mary 1 DROP OPL QID Metoprolol Tartrate (Metoprolol Tartrate) 50 Mg Tab 50 MG PO BID for 30 Days, #60 TAB Ropinirole (Requip) 0.5 Mg Tab 1 MG PO HS, TAB Ropinirole (Requip) 1 Mg Tab 0.5 MG PO QAM, TAB TAKES ONE TABLET AT BEDTIME FOR 30DAY, 1-3 HOURS BEFORE BEDTIME WITH FOOD, ONE-HALF TABLET IN THE MORNING Sertraline (Zoloft) 50 Mg Tab 50 MG PO DAILY, TAB Temazepam (Restoril) 15 Mg Cap 15 MG PO HS, CAP Discontinued Medications: Ciprofloxacin Tab (Cipro) 250 Mg Tab 250 MG PO BID, TAB Discharge Exam Constitutional: No chills, No fever, No weakness Respiratory: No cough, No shortness of breath, No sputum Cardiovascular: No chest pain, No edema, No palpitations Abdomen: No constipation, No diarrhea, No pain, No vomiting Female : No dysuria, No hematuria, No urinary frequency Neurologic: No numbness/tingling, No weakness Skin: No color change, No itch, No rash General Appearance: WD/WN, no apparent distress Eyes: PERRL, EOMI Neck: supple, no carotid bruits, trachea midline Respiratory/Chest: lungs clear, normal breath sounds, no respiratory distress Cardiovascular: no edema, no JVD, + irregularly irregular Abdomen: normal bowel sounds, non tender, soft Extremities: no pedal edema, no calf tenderness Neurologic/Psychiatric: alert, normal mood/affect, oriented x 3 Skin: normal color, warm/dry (Jackson Bernstein MD) Hospital Course 86 yo F w/ hx of CHF, AFib, HTN, HLD, p/w Acute Confusion w/ MRI consistent with Acute CVA in addition to hematuria secondary to Urolithiasis * Acute Cerebral Infraction - likely secondary due to medical non-compliance with anticoagulation - 12/02: MRI of the brain showed showed several tiny acute strokes - 12/02: Carotid US: showed no stenosis b/l - Patient's mentation eventually improved at or near baseline during hospital stay. - weakness improved - Lipid panel is normal and HbA1c is elevated 6.5 - Started Aspirin 81 mg , Statin _ d/c'd with follow up appointment in [address] Luigi Sanabria ( Neurology) * Confusion/Disorientation on arrival -improved during hospital stay, likely near baseline, AOx 3 - likely due to CVA vs medication induced - Requip and Restoril intially stopped as possible contributors to AMS , restarted at discharge - considered Low B12 (286) a possible contributor to confusion - D/c'd with IV B12 injections daily FOR 4 MORE DAYS THEN 1 X A WEEK FOR 1 MONTH * Permanent Atrial Fibrillation - rate controlled - Continued Diltiazem 120mg - Continued Metoprolol 50mg BID - Continued Eliquis 5mg BID * Diastolic Congestive Heart Failure - Echo showed the left ventricle is hyperdynamic, no regional wall motion abnormalities, normal EF (>70%), moderate concentric left ventricular hypertrophy, moderate to severe MR, mild to moderate TR and biatrial dilation. - Amlodipine and lisinopril were held - Started on Diltiazem, Metoprolol as above * HTN - controlled - Continue with Metoprolol 50mg BID - Continue with Diltiazem 120mg daily * Hematuria with Mild R Hydronephrosis: - Cr stable during hospital stay - CT abd/pelvis revealed a 6 mm right UPJ stone with hydronephrosis - Discussed with Urology - Plan was for further evaluation outpatient - d/c with followup appointment with Dr. Alex (Urology) * Hypothyroidism: - Continued Synthroid 88 mcg daily * DVT Prophylaxis: - Continued Eliquis Total Time Spent: Less than 30 minutes This includes examination of the patient, discharge planning, medication reconciliation, and communication with other providers. (Jackson Bernstein MD) Discharge Instructions Please refer to the electronic Patient Visit Report (Discharge Instructions) for additional information. (Jackson Bernstein MD) Follow-Up Neurology Urology Cardiology Primary Care (Jackson Bernstein MD) Reviewed: Pt Seen/Exam by Me (Sheri Bar DO) History Pt continues to feel well today. She is tolerating PO without issue. No chest pain or SOB. Agree with HPI/ROS as noted. (Sheri Bar DO) General Appearance: WD/WN, no apparent distress Respiratory: normal breath sounds, no respiratory distress Cardiovascular: normal peripheral pulses, regular rate, rhythm Gastrointestinal: non tender, soft Extremities: non-tender, no pedal edema Neurologic/Psychiatric: alert, normal mood/affect Skin Characteristics: normal color, warm/dry (Sheri Bar DO) Assessment/Plan Resident Physician Supervision Note: I discussed the case with the resident and agree with the findings and plan as documented in the note. Any exceptions or clarifications are listed here: Documented By: Sheri Bar Agree with plan as outlined above. s/p CVA likely related to noncompliance with medication ? dementia R sided obstructing kidney stone, urology planning to allow pt time to stabilize from CVA prior to intervention given she is asx B12 deficiency, possibly adding to or causing dementia, monitor with injections x5 days (has had 2 prior to d/c), then weekly x4, then monthly. (Sheri Bar, DO)
--- NOTE | 2016-12-09 08:08 | EDITING REQUIRED CODING QUERY ---
CODING QUERY To promote full compliance with coding requirements relating to patient care, provider participation is requested in all cases of service bar cashier uncertainty. Please assist us with the question(s) below: Coding Question(s): Patient admitted with confusion,disorientation. Diagnosed with CVA. Progress note 12/03 mentions "confusion 2nd to CVA vs: electrolyte vs: Medication inducted encephalopathy. Please check below the phrase that applies and diagnosis you treated regarding the etiology of the patient's confusion and disorientation. Thanks for your help! NATHAN Sutherland [facility] Physician's Response(s): Patient's confusion was due to encephalopathy ____x____ Patient's confusion was due to CVA Cannot clinically correlate the etiology of the patient's confusion Other, please document: Principal Diagnosis: "_that condition established after study, to be chiefly responsible for occasioning the admission of the patient to the hospital for care." Co-Existing Principal Diagnosis: "_when two or more diagnoses equally meet the criteria for principal diagnosis as determined by the circumstances of admission, diagnostic work up, and/or therapy provided, and the Alphabetic Index, Tabular List, or another coding guideline does not provide sequencing direction, any one of the diagnoses may be sequenced first." "When the physician has documented what appears to be a current diagnosis in the body of the record, but has not included the diagnosis in the final diagnostic statement, the physician should be asked whether the diagnosis should be added." ([facility] 2 QTR90. p3-4)
== END 2016-12-07 17:34 | DRG 65 ==
LOC: ENRESERVTM → ENRESERVDT → C.EDB 06:57 → C.2E 12:28 → C.MS2W 12-07 12:24
PROVIDERS: ADMIT Internal Medicine; ATTEND Family Medicine
DX: I63.9 Cerebral infarction, unspecified (principal); I50.32 Chronic diastolic (congestive) heart failure; N13.2 Hydronephrosis with renal and ureteral calculous obstruction; I48.2 Chronic atrial fibrillation; E53.8 Deficiency of other specified B group vitamins; E78.00 Pure hypercholesterolemia, unspecified; I10 Essential (primary) hypertension; E87.6 Hypokalemia; Z79.01 Long term (current) use of anticoagulants; F03.90 Unspecified dementia, unspecified severity, without behavioral disturbance, psychotic disturbance, mood disturbance, and anxiety; Z91.14 Patient's other noncompliance with medication regimen

== ENCOUNTER → 2017-02-14 | Outpatient (CLI) | payer OTHER, BC ==
[~2017-02-14] MED LIST changes: +ATOR10TA82 PO; -ATOR10TA88 PO; -CLX/20 PO; +CYNI1000 IM; +LOTE0.5S OPL; -MELO7.5T5 PO; +ROPI1TAB PO; +SERT50TA PO; -SODI10IN5 INJ; +TYLOTC500 PO
--- NOTE | 2017-02-14 11:17 | DIAGNOSTIC IMAGING REPORT ---
CT OF THE ABDOMEN AND PELVIS WITHOUT CONTRAST CLINICAL HISTORY: Nephrolithiasis. COMPARISON STUDY: CT of the abdomen and pelvis December 02, 2016. TECHNIQUE: Axial images of the abdomen and pelvis were obtained without IV contrast. Images were reviewed in the axial, sagittal, and coronal planes. FINDINGS: There is extensive mitral annular calcification. A few hepatic cysts are better depicted on prior contrast enhanced CT. Unenhanced images of the spleen, adrenal glands and pancreas are normal. There is no biliary or pancreatic ductal dilatation. Right-sided hydronephrosis has markedly improved since exam of December 02, 2016. There has been distal migration of the 8 mm right sided calculus, now within the distal right ureter. There is no significant upstream dilatation. There is no evidence for a bowel obstruction. There is sigmoid diverticulosis without evidence for acute diverticulitis. Bowel containing right groin hernia is noted. Several fat-containing ventral hernias are noted. No suspicious osseous lesions are present. There is no lymphadenopathy. There are possible punctate right renal calculi. There are no left ureteral calculus. IMPRESSION: Distal migration of the 8 mm right ureteral calculus, now within the distal ureter. No significant dilatation. Otherwise, unchanged appearance of the abdomen and pelvis. Electronically signed by: Oliver Hammer M.D. 02/14/2017 11:16 AM Dictated Date/Time: 02/14/2017 11:08 AM
[2017-02-14 13:03] LABS: BLOOD UREA NITROGEN 13 mg/dl (7-18); CARBON DIOXIDE 30 mmol/L (21-32); CHLORIDE 105 mmol/L (98-107); GLUCOSE 118 mg/dl (70-99); POTASSIUM 3.9 mmol/L (3.5-5.1); SODIUM 141 mmol/L (136-145)
[2017-02-14 13:13] LABS: CALCIUM 9.5 mg/dl (8.5-10.1)
== END | disposition home or self-care (01) ==
LOC: C.CTS 10:39
PROVIDERS: ATTEND Urology
DX: N20.0 Calculus of kidney (principal)

== ENCOUNTER → 2017-03-15 | Outpatient (CLI) | payer OTHER, BC | END | disposition home or self-care (01) | LOC: C.LABWYN 10:46 | PROVIDERS: ATTEND Internal Medicine | DX: E03.9 Hypothyroidism, unspecified (principal) ==

== ENCOUNTER → 2017-04-12 | Outpatient (CLI) | payer OTHER, BC ==
[~2017-04-12] MED LIST changes: -ATOR10TA82 PO; +ATOR10TA88 PO
== END | disposition home or self-care (01) ==
LOC: C.LABWYN 08:02
PROVIDERS: ATTEND Internal Medicine
DX: E03.9 Hypothyroidism, unspecified (principal)

== ENCOUNTER → 2017-05-04 | Outpatient (CLI) | payer OTHER, BC ==
--- NOTE | 2017-05-04 12:24 | DIAGNOSTIC IMAGING REPORT ---
CT OF THE ABDOMEN AND PELVIS WITHOUT CONTRAST, STONE PROTOCOL CLINICAL HISTORY: Nephrolithiasis. COMPARISON STUDY: CT of the abdomen and pelvis February 14, 2017. TECHNIQUE: Helical axial images of the abdomen and pelvis were obtained without IV or oral contrast according to renal stone protocol. A dose lowering technique was utilized adhering to the principles of ALARA. FINDINGS: Visualized portions of the lower chest demonstrate a small pericardial effusion which has increased in size since exam of February 14, 2017. Small right and trace left pleural effusions are present. The spleen, adrenal glands and pancreas are unremarkable. There is no hydronephrosis or hydroureter. There has been minimal distal migration of the 8 mm distal right ureteral calculus since CT of February 14, 2017. This is essentially unchanged in position. No additional urinary calculi are identified. Fat-containing umbilical hernia is noted. A right internal hernia contains several loops of small bowel without resultant bowel obstruction. There is sigmoid diverticulosis without evidence for acute diverticulitis. There is no bowel obstruction. No suspicious osseous lesions are present. There is no lymphadenopathy. IMPRESSION: Minimal distal migration of the 8 mm distal right ureteral calculus since prior CT. Calculus is essentially unchanged in position. No upstream dilatation. Electronically signed by: Oliver Hammer M.D. 05/04/2017 12:22 PM Dictated Date/Time: 05/04/2017 12:09 PM
== END | disposition home or self-care (01) ==
LOC: C.CTS 11:38
PROVIDERS: ATTEND Nurse Practitioner Family
DX: N20.0 Calculus of kidney (principal)

== ENCOUNTER → 2017-05-10 | Outpatient (CLI) | payer OTHER, BC ==
[2017-05-10 11:26] LABS: CREATININE 0.66 mg/dl (0.60-1.20)
== END | disposition home or self-care (01) ==
LOC: C.LABWYN 10:59
PROVIDERS: ATTEND Nurse Practitioner Family
DX: N20.0 Calculus of kidney (principal)

== ENCOUNTER → 2017-05-31 | Outpatient (CLI) | payer OTHER, BC ==
[2017-05-31 10:35] LABS: HEMATOCRIT 43.1 % (37-47); MEAN CELL VOLUME 88.1 fL (80-100); MEAN CORPUSCULAR HEMOGLOBIN 27.8 pg (25-34); MEAN CORPUSCULAR HGB CONC 31.6 g/dl (32-36); MEAN PLATELET VOLUME 10.5 fL (7.4-10.4); PLATELET COUNT 247 K/uL (130-400); RED BLOOD COUNT 4.89 M/uL (4.2-5.4); WHITE BLOOD COUNT 8.08 K/uL (4.8-10.8)
== END | disposition home or self-care (01) ==
LOC: C.LABWYN 09:57
PROVIDERS: ATTEND Internal Medicine
DX: M10.9 Gout, unspecified (principal); M19.90 Unspecified osteoarthritis, unspecified site

== ENCOUNTER → 2017-08-03 | Outpatient (CLI) | payer OTHER, BC ==
[~2017-08-03] MED LIST changes: +ATOR10TA82 PO; -ATOR10TA88 PO
--- NOTE | 2017-08-03 13:11 | DIAGNOSTIC IMAGING REPORT ---
(RENAL)RETROPERITON COMP HISTORY: Nephrocalcinosis STONES COMPARISON: CT 05/04/2017 CT 02/14/2017 FINDINGS: Right kidney: Mild distention renal pelvis. Maximum linear dimension right kidney 10.1 cm. 3 mm nonobstructing lower pole calcification Normal corticomedullary differentiation and cortical thickness. Left kidney: Maximum dimension 9.0 cm. No evidence for hydronephrosis. Normal corticomedullary differentiation and cortical thickness. Bladder: No bladder wall thickening. The bilateral ureteral jets were identified. IMPRESSION: 1. Mild distention right renal pelvis. 2. 3 mm nonobstructing lower pole right renal calcification. 3. No evidence for left hydronephrosis. The above report was generated using voice recognition software. It may contain grammatical, syntax or spelling errors. Electronically signed by: Seth Zapata M.D. 08/03/2017 1:09 PM Dictated Date/Time: 08/03/2017 1:07 PM
== END | disposition home or self-care (01) ==
LOC: C.ULTR 12:23
PROVIDERS: ATTEND Nurse Practitioner Family
DX: N20.0 Calculus of kidney (principal)

== ENCOUNTER → 2017-10-25 | Outpatient (CLI) | payer OTHER, BC ==
[2017-10-25 09:26] LABS: BLOOD UREA NITROGEN 12 mg/dl (7-18); CREATININE 0.65 mg/dl (0.60-1.20)
== END | disposition home or self-care (01) ==
LOC: C.LABWYN 08:36
PROVIDERS: ATTEND Urology
DX: N20.1 Calculus of ureter (principal)

== ENCOUNTER → 2017-10-27 | Outpatient (CLI) | payer OTHER, BC ==
--- NOTE | 2017-10-27 11:46 | DIAGNOSTIC IMAGING REPORT ---
CT SCAN OF THE ABDOMEN AND PELVIS WITHOUT IV CONTRAST CLINICAL HISTORY: Nephrolithiasis. COMPARISON STUDY: Abdominal CT dated 05/04/2017. TECHNIQUE: CT scan of the abdomen and pelvis is performed from the lung bases to the proximal femora. Images are reviewed in the axial, sagittal, and coronal planes. IV contrast was not administered for this examination. A dose lowering technique was utilized adhering to the principles of ALARA. CT DOSE: 767.97 mGycm FINDINGS: Lung bases: The heart is enlarged and there is a small to moderate pericardial effusion. The coronary arteries and mitral annulus are densely calcified. There is a trace right pleural effusion. No airspace consolidation is seen in either lung base. Subpleural reticulation is noted bilaterally. Liver: The unenhanced liver is normal in size, contour, and attenuation. There is no intrahepatic biliary ductal dilatation. There are least 2 hepatic cyst identified measuring up to 2.5 cm. Gallbladder: Unremarkable. Spleen: Normal in size and attenuation. Pancreas: Moderately atrophic and grossly unremarkable Adrenal glands: Unremarkable. Kidneys: The unenhanced kidneys are atrophic. There is a 9 mm calculus identified at the right vesicoureteral junction seen on axial image #331. This does not cause significant right hydroureteronephrosis. No additional calculi are identified in either kidney. There is no evidence of contour deforming renal mass lesion. Abdominal vasculature: There is advanced atherosclerotic calcification and mild ectasia of the abdominal aorta. Bowel: There is advanced colonic diverticulosis without CT evidence of acute diverticulitis. Moderate colonic fecal retention is observed. No bowel obstruction is seen. A portion of the transverse colon protrudes into a large ventral abdominal hernia in the pelvis. The appendix is well-visualized and normal. Peritoneum: There is no intraperitoneal free air or abdominal ascites. There is a large fat-containing ventral hernia in the midline pelvis seen on image #20 and 16. Lymphadenopathy: None. Pelvic viscera: The bladder is decompressed and not well evaluated. The uterus is surgically absent. No adnexal lesion is seen. Skeletal structures: The skeletal structures are osteopenic. Mild lumbosacral spondylosis is observed. No lytic or blastic lesions are seen. IMPRESSION: 1. There is a 9 mm calculus at the right vesicoureteral junction. This does not cause significant right-sided hydroureteronephrosis, and this is unchanged in position from 05/04/2017. 2. No additional calculi are identified in either kidney. 3. Cardiomegaly noting a small to moderate pericardial effusion. 4. Trace right pleural effusion. 5. Advanced colonic diverticulosis without CT evidence of acute diverticulitis. 7. Additional findings as above. Electronically signed by: Leopoldo Quiñones M.D. 10/27/2017 11:45 AM Dictated Date/Time: 10/27/2017 11:39 AM
== END | disposition home or self-care (01) ==
LOC: C.CTS 11:02
PROVIDERS: ATTEND Urology
DX: N20.0 Calculus of kidney (principal); I51.7 Cardiomegaly; I31.3 Pericardial effusion (noninflammatory); K57.30 Diverticulosis of large intestine without perforation or abscess without bleeding

== ENCOUNTER → 2017-11-22 | Outpatient (CLI) | payer OTHER, BC ==
[2017-11-22 08:35] LABS: HEMATOCRIT 44.8 % (37-47); HEMOGLOBIN 15.1 g/dL (12.0-16.0); MEAN CELL VOLUME 87.2 fL (80-100); MEAN CORPUSCULAR HEMOGLOBIN 29.4 pg (25-34); MEAN CORPUSCULAR HGB CONC 33.7 g/dl (32-36); MEAN PLATELET VOLUME 10.2 fL (7.4-10.4); PLATELET COUNT 209 K/uL (130-400); RED CELL DISTRIBUTION WIDTH CV 15.2 % (11.5-14.5); RED CELL DISTRIBUTION WIDTH SD 48.1 fL (36.4-46.3); WHITE BLOOD COUNT 5.91 K/uL (4.8-10.8)
[2017-11-22 08:56] LABS: BLOOD UREA NITROGEN 11 mg/dl (7-18); CALCIUM 9.4 mg/dl (8.5-10.1); CARBON DIOXIDE 28 mmol/L (21-32); CHOLESTEROL 101 mg/dl (0-200); CREATININE 0.66 mg/dl (0.60-1.20); GLUCOSE 101 mg/dl (70-99); POTASSIUM 3.6 mmol/L (3.5-5.1); SODIUM 139 mmol/L (136-145)
[2017-11-22 09:06] LABS: LDL CHOLESTEROL CALCULATED 46 mg/dl
== END | disposition home or self-care (01) ==
LOC: C.LABWYN 08:00
PROVIDERS: ATTEND Nurse Practitioner Adult Health
DX: E04.9 Nontoxic goiter, unspecified (principal); E78.5 Hyperlipidemia, unspecified; M81.0 Age-related osteoporosis without current pathological fracture

== ENCOUNTER → 2017-12-04 | Outpatient (CLI) | payer OTHER, BC | END | disposition home or self-care (01) | LOC: C.LABWYN 09:52 | PROVIDERS: ATTEND Internal Medicine | DX: N39.0 Urinary tract infection, site not specified (principal) ==

== ENCOUNTER → 2017-12-13 | Outpatient (CLI) | payer OTHER, BC ==
[2017-12-13 09:32] LABS: HEMATOCRIT 46.3 % (37-47); MEAN CELL VOLUME 90.3 fL (80-100); MEAN CORPUSCULAR HEMOGLOBIN 29.2 pg (25-34); MEAN CORPUSCULAR HGB CONC 32.4 g/dl (32-36); MEAN PLATELET VOLUME 10.5 fL (7.4-10.4); PLATELET COUNT 179 K/uL (130-400); RED CELL DISTRIBUTION WIDTH CV 14.9 % (11.5-14.5); RED CELL DISTRIBUTION WIDTH SD 49.6 fL (36.4-46.3); WHITE BLOOD COUNT 4.99 K/uL (4.8-10.8)
[2017-12-13 09:40] LABS: BLOOD UREA NITROGEN 23 mg/dl (7-18); CALCIUM 9.4 mg/dl (8.5-10.1); CARBON DIOXIDE 32 mmol/L (21-32); CREATININE 0.81 mg/dl (0.60-1.20); GLUCOSE 87 mg/dl (70-99); POTASSIUM 4.7 mmol/L (3.5-5.1); SODIUM 140 mmol/L (136-145)
== END | disposition home or self-care (01) ==
LOC: C.LABWYN 09:09
PROVIDERS: ATTEND Nurse Practitioner Adult Health
DX: R53.83 Other fatigue (principal)

== ENCOUNTER → 2017-12-27 | Outpatient (CLI) | payer OTHER, BC | END | disposition home or self-care (01) | LOC: C.LABWYN 07:50 | PROVIDERS: ATTEND Internal Medicine | DX: Z79.899 Other long term (current) drug therapy (principal) ==

== ENCOUNTER → 2018-01-19 | Outpatient (CLI) | payer OTHER, BC | END | disposition home or self-care (01) | LOC: C.LABWYN 15:42 | PROVIDERS: ATTEND Nurse Practitioner Adult Health | DX: R35.0 Frequency of micturition (principal); R30.9 Painful micturition, unspecified ==

== ENCOUNTER → 2018-04-26 | Outpatient (CLI) | payer OTHER, BC ==
[~2018-04-26] MED LIST changes: -AMLO-110 PO; +AMLO5TAB3 PO
--- NOTE | 2018-04-26 09:44 | DIAGNOSTIC IMAGING REPORT ---
CT SCAN OF THE ABDOMEN AND PELVIS WITHOUT IV CONTRAST CLINICAL HISTORY: Nephrolithiasis. COMPARISON STUDY: Abdominal CT dated 10/27/2017. TECHNIQUE: CT scan of the abdomen and pelvis is performed from the lung bases to the proximal femora. Images are reviewed in the axial, sagittal, and coronal planes. IV contrast was not administered for this examination. A dose lowering technique was utilized adhering to the principles of ALARA. CT DOSE: 621.63 mGy.cm FINDINGS: Lung bases: The heart is enlarged and there is a small to moderate pericardial effusion. The coronary arteries and mitral annulus are densely calcified. There is a small right pleural effusion. No airspace consolidation is seen in either lung base. Subpleural reticulation is noted bilaterally. Liver: The unenhanced liver is normal in size, contour, and attenuation. There is no intrahepatic biliary ductal dilatation. There are least 2 hepatic cyst identified measuring up to 2.5 cm. Gallbladder: Unremarkable. Spleen: Normal in size and attenuation. Pancreas: Moderately atrophic and grossly unremarkable Adrenal glands: Unremarkable. Kidneys: The unenhanced kidneys are atrophic. There is a 9 mm calculus identified at the right vesicoureteral junction seen on axial image #341. This does not cause significant right hydroureteronephrosis. No additional calculi are identified in either kidney. There is no evidence of contour deforming renal mass lesion. Abdominal vasculature: There is advanced atherosclerotic calcification and mild ectasia of the abdominal aorta. Bowel: There is advanced colonic diverticulosis without CT evidence of acute diverticulitis. Moderate colonic fecal retention is observed. No bowel obstruction is seen. A portion of the transverse colon protrudes into a large ventral abdominal hernia in the pelvis. The appendix is well-visualized and normal. Peritoneum: There is no intraperitoneal free air or abdominal ascites. There is a large complex fat-containing ventral hernia in the midline pelvis. Lymphadenopathy: None. Pelvic viscera: The bladder is decompressed and grossly unremarkable. The uterus is surgically absent. No adnexal lesion is seen. Skeletal structures: The skeletal structures are osteopenic. Mild lumbosacral spondylosis is observed. No lytic or blastic lesions are seen. IMPRESSION: 1. There is unchanged appearance of a 9 mm calculus at the right vesicoureteral junction as compared to the 10/27/2017 examination. This does not cause significant right-sided hydroureteronephrosis. 2. No additional calculi are identified in either kidney. 3. Cardiomegaly noting a small to moderate pericardial effusion. 4. There is a small right pleural effusion, which has increased in size from 10/27/2017. 5. Advanced colonic diverticulosis without CT evidence of acute diverticulitis. 7. Additional findings as above. Electronically signed by: Leopoldo Quiñones M.D. 04/26/2018 9:43 AM Dictated Date/Time: 04/26/2018 9:38 AM
== END | disposition home or self-care (01) ==
LOC: C.CTS 09:07
PROVIDERS: ATTEND Urology
DX: N20.0 Calculus of kidney (principal); I51.7 Cardiomegaly; J90 Pleural effusion, not elsewhere classified; K57.30 Diverticulosis of large intestine without perforation or abscess without bleeding

== ENCOUNTER 2018-11-24 18:13 | Inpatient (IN) ==
[2018-11-24 19:13] LABS: Basophils # (auto) 0.01 K/uL (0-0.2); Basophils % (auto) 0.1 %; Eosinophils # (auto) 0.02 K/uL (0-0.5); Eosinophils % (auto) 0.2 %; Hematocrit (blood only) 48.6 % (37-47); Hemoglobin 15.3 g/dL (12.0-16.0); Immature Granulocytes # (auto) 0.08 K/uL (0.00-0.02); Immature Granulocytes % (auto) 0.8 %; Lymphocytes % (auto) 13.4 %; Mean Corpuscular Hgb Conc 31.5 g/dL (32-36); Mean Platelet Volume 10.3 fL (7.4-10.4); Monocytes # (auto) 0.67 K/uL (0.11-0.59); Monocytes % (auto) 6.9 %; Neutrophils # (auto) 7.62 K/uL (1.4-6.5); Neutrophils % (auto) 78.6 %; Platelet Count 302 K/uL (130-400); RDW Coefficient of Variation 18.6 % (11.5-14.5); RDW Standard Deviation 57.7 fL (36.4-46.3); Red Blood Count 5.65 M/uL (4.2-5.4)
--- NOTE | 2018-11-24 19:15 | XRay Report ---
XR chest 1V portable CLINICAL HISTORY: weakness dyspnea COMPARISON STUDY: 11/17/2018 FINDINGS: Moderate cardiomegaly. Dense calcification mitral annulus. Lungs are clear. Diaphragms are smooth. IMPRESSION: Moderate cardiomegaly. Otherwise negative study. The above report was generated using voice recognition software. It may contain grammatical, syntax or spelling errors. Electronically signed by: Seth Zapata M.D. 11/24/2018 7:13 PM
[2018-11-24 19:30] LABS: INR 1.3 (0.9-1.1); Partial Thromboplastin Time 26.9 Seconds (21.0-31.0); Prothrombin Time 13.3 Seconds (9.0-12.0)
[2018-11-24 19:33] LABS: Alanine Aminotransferase 11 U/L (12-78); Albumin Level 2.8 gm/dl (3.4-5.0); Aspartate Aminotransferase 19 U/L (15-37); BUN Creatinine Ratio 27.3 (10-20); Blood Urea Nitrogen 25 mg/dl (7-18); Calcium 9.4 mg/dl (8.5-10.1); Carbon Dioxide 26 mmol/L (21-32); Chloride 103 mmol/L (98-107); Est GFR (African American) 64.4; Est GFR (Non-African American) 55.6; Glucose 161 mg/dl (70-99); Potassium 4.3 mmol/L (3.5-5.1); Sodium 137 mmol/L (136-145)
[2018-11-24 19:54] LABS: Albumin Globulin Ratio 0.6 (0.9-2); Alkaline Phosphatase 101 U/L (45-117); Bilirubin,Total 1.5 mg/dl (0.2-1); Globulin 4.7 gm/dl (2.5-4.0); Total Protein 7.5 gm/dl (6.4-8.2); Troponin I 0.062 ng/ml (0-0.045)
[2018-11-24 20:30] LABS: T4 Free Thyroxine 1.64 ng/dl (0.8-1.6)
--- NOTE | 2018-11-24 20:45 | CT Scan Report ---
CT head/brain wo con CLINICAL HISTORY: 88 years-old Female with ams. Acutely altered mental status TECHNIQUE: Multiple axial CT images of the head were obtained without contrast. A dose lowering tech nique was utilized adhering to the principles of ALARA. CT DOSE: 729.78 mGycm COMPARISON: CT head 11/17/2018. FINDINGS: No acute intracranial hemorrhage, midline shift, intracranial mass, hydrocephalus, territorial ischem ia or abnormal extra-axial collection. Age-related involutional changes with ex vacuo ventriculomegal y. Moderate white matter hypodensities suggestive of chronic microvascular ischemic changes. Cerebral vascular calcifications also noted. Study is mildly motion degraded. The calvarium is intact. Note is made of a metopic suture. Mastoid air cells are clear. Mild to moder ate mucosal thickening about the ethmoid air cells. Right anterior frontal scalp hematoma, 4.0 x 0.8 cm. Prior bilateral cataract repair. IMPRESSION: 1. Mildly motion degraded exam without acute intracranial abnormality or calvarial fracture. 2. 4.0 x 0.8 cm right anterior frontal scalp hematoma. The above report was generated using voice recognition software. It may contain grammatical, syntax o r spelling errors. Electronically signed by: Darrius Posadas M.D. 11/24/2018 8:43 PM
[2018-11-24 21:30] LABS: Appearance Urine Cloudy (Clear); Bacteria Urine Automated Negative (Negative); Blood Urine Negative (Negative); Color Urine Dark Yellow; Glucose Urine UA Negative (Negative); Ketones Urine Trace (Negative); Leukocyte Esterase Urine Negative (Negative); Nitrite Urine Positive (Negative); Protein Urine Trace (Negative); RBC Urine Automated 0-4 /hpf (0-4); Specific Gravity Urine 1.025 (1.000-1.030); Urobilinogen Urine Negative (Negative)
[2018-11-24 21:53] LABS: Bilirubin Urine Negative (Negative); Ictotest Urine Negative (Negative)
[2018-11-24] MEDS ORDERED: cefTRIAXone SODIUM 1,000 MG/50 ML BAG IV STA (22:25)
--- NOTE | 2018-11-24 22:25 | Emergency Department Note ---
Entered by Cecelia Cedillo acting as a scribe for Rommel Roy M.D. History of Present Illness General Chief complaint: Altered Mental Status Stated complaint: AMS,CHEST PAIN Source: patient, EMS and RN notes reviewed Mode of arrival: EMS Limitations: altered mental status History of Present Illness Onset (ago): day(s) 3 Location: head Radiation: non-radiation Pain Consistency: + constant Relieved By: + none Exacerbated By: + none Associated symptoms: + denies other symptoms Treatments prior to arrival: none The patient is an 88 year old female who presents to the Emergency Room with complaints of AMS. She was brought to the ED via EMS from [facility], where she resides. EMS reports she has experienced increased falls over the past few days and notes the patient has a history of a previous TIA. The patient does take daily blood thinners. History is limited secondary to the patients altered mental status. Home Medications Home Medications Medication Instructions Recorded Confirmed Type acetaminophen 325 mg PO Q4H PRN 11/10/18 11/24/18 History apixaban [Eliquis] 5 mg PO BID 11/10/18 11/24/18 History aspirin [Aspirin Low Dose] 81 mg PO DAILY 11/10/18 11/24/18 History atorvastatin 10 mg PO DAILY 11/10/18 11/24/18 History brimonidine 1 drp OPR BID 11/10/18 11/24/18 History citalopram 10 mg PO DAILY 11/10/18 11/24/18 History furosemide 20 mg PO DIRECTED 11/10/18 11/24/18 History guaifenesin [Siltussin SA] 5 ml PO Q6H PRN 11/10/18 11/24/18 History latanoprost 1 drp OPR HS 11/10/18 11/24/18 History levothyroxine 112 mg PO DAILY 11/10/18 11/24/18 History lisinopril 20 mg PO DAILY 11/10/18 11/24/18 History loperamide 2 mg PO Q4H PRN 11/10/18 11/24/18 History metoprolol tartrate 50 mg PO BID 11/10/18 11/24/18 History nystatin 1 applic TOPICAL BID PRN 11/10/18 11/24/18 History nystatin 1 applic TOPICAL BID PRN 11/10/18 11/24/18 History omeprazole 20 mg PO DAILY 11/10/18 11/24/18 History potassium citrate 10 meq PO TID 11/10/18 11/24/18 History ropinirole 0.5 mg PO HS 11/10/18 11/24/18 History cholecalciferol (vitamin D3) 2 tab PO DAILY 11/17/18 11/24/18 History [Vitamin D3] Allergies Allergy/AdvReac Type Severity Reaction Status Date / Time meperidine Allergy Unknown HIVES Verified 11/17/18 12:41 SINDRYNZA Allergy Mild eye gets Uncoded 11/10/18 21:28 crusty and itches TIMOPLIE Allergy Mild eye itches Uncoded 11/10/18 21:28 and gets crusty Past Med/Surg History Medical History UTI (urinary tract infection) Hallucinations Fall Social History Preferred Language: Mauritian Hearing Ability: Normal Current Living Situation: Snf Feels Safe at Home: Yes Smoking Status: Unknown if ever smoked Review of Systems See HPI for pertinent positives & negatives. Unobtainable due to cognitive status Physical Exam Vital Signs Vital Signs - 24 hr 11/24/18 18:15 11/24/18 18:49 11/24/18 20:02 Temperature 37.2 C Temperature Source Rectal Sepsis Recent Fever Within 48 Hours No Sepsis New/Unexplained Change in Mental Status No Sepsis Action Taken by Nursing No Action Required Pulse Rate 136 H Pulse Rate [Bilateral] 105 H Pulse Rhythm [Bilateral] Irregular Pulse Strength [Bilateral] Normal Respiratory Rate 12 20 Respiratory Effort / Characteristics Non-Labored Spontaneous Respiratory Depth Normal Respiratory Pattern Regular Blood Pressure 118/86 Blood Pressure [Right Arm] 181/119 H Blood Pressure Mean 96 Blood Pressure Mean [Right Arm] 139 Blood Pressure Position [Right Arm] Lying Pulse Oximetry 100 100 94 Oxygen Delivery Method Nasal Cannula Nasal Cannula Room Air Oxygen Flow Rate 3 3 11/24/18 20:30 11/24/18 21:00 11/24/18 22:35 Temperature Temperature Source Sepsis Recent Fever Within 48 Hours Sepsis New/Unexplained Change in Mental Status Sepsis Action Taken by Nursing Pulse Rate Pulse Rate [Bilateral] 108 H 100 H 119 H Pulse Rhythm [Bilateral] Regular Regular Regular Pulse Strength [Bilateral] Normal Normal Normal Respiratory Rate 18 20 18 Respiratory Effort / Characteristics Non-Labored Spontaneous Non-Labored Spontaneous Non-Labored Spontaneous Respiratory Depth Normal Normal Normal Respiratory Pattern Regular Regular Regular Blood Pressure Blood Pressure [Right Arm] 170/105 H 186/100 H Blood Pressure Mean Blood Pressure Mean [Right Arm] 126 128 Blood Pressure Position [Right Arm] Lying Sitting Lying Pulse Oximetry 96 93 97 Oxygen Delivery Method Room Air Room Air Room Air Oxygen Flow Rate 11/24/18 23:52 Temperature Temperature Source Sepsis Recent Fever Within 48 Hours Sepsis New/Unexplained Change in Mental Status Sepsis Action Taken by Nursing Pulse Rate Pulse Rate [Bilateral] 84 Pulse Rhythm [Bilateral] Regular Pulse Strength [Bilateral] Normal Respiratory Rate 18 Respiratory Effort / Characteristics Non-Labored Spontaneous Respiratory Depth Normal Respiratory Pattern Regular Blood Pressure Blood Pressure [Right Arm] 134/71 Blood Pressure Mean Blood Pressure Mean [Right Arm] 92 Blood Pressure Position [Right Arm] Lying Pulse Oximetry 96 Oxygen Delivery Method Room Air Oxygen Flow Rate GENERAL: Patient is awake, moaning and rambling HENT: Normocephalic, facial bruising. Oropharynx unremarkable. EYES: Normal conjunctiva. Sclera non-icteric. NECK: Supple. No nuchal rigidity. RESPIRATORY: Clear to auscultation. No wheezes. Normal respiratory effort. CARDIAC: Normal rate. Irregular heart rhythm. Extremities warm and well perfused. GI: Soft, non-distended. No tenderness to palpation. No rebound or guarding. No masses. RECTAL: Deferred. MUSCULOSKELETAL: Atraumatic. Chest examination reveals no tenderness. There is no CVA tenderness to palpation. Bilateral upper extremity bruising. Skin tear on right dorsal hand. LOWER EXTREMITIES: Calves are equal size bilaterally and non-tender. No edema NEURO: Normal sensorium. No sensory or motor deficits noted. No facial droop. SKIN: Warm and dry. No rash or jaundice noted. Course 182: Past medical records reviewed. The patient was evaluated in room C3, and a complete history and physical examination were performed. 1834: I spoke with the patients family. At 0, she appeared altered with slurred speech and was not following commands. 1939: I reevaluated the patient. She is resting comfortably. I discussed her results so far with her family. 1954: Nursing informed me the patients Troponin is 0.062. 2211: I discussed the patients case with Dr. Castillo, [facility] Hospitalist. The patient will be further evaluated. 2215: I reevaluated the patient. She is resting comfortably. I discussed her results and my recommendation she remain in the hospital for further evaluation and management and her family verbalized complete understanding and agreement. Consultations Consultation #1: I discussed the patients case with Dr. Castillo, [facility] Hospitalist. The patient will be further evaluated. Time: 22:12 Administered Medications Metoprolol Tartrate (Lopressor) 12.5 mg PO BID PERLA Stop: 12/24/18 23:29 Last Admin: 11/24/18 23:49 Dose: 12.5 mg Documented by: [id number] Discontinued Medications Ceftriaxone Sodium (Rocephin) 1,000 mg in 50 mls @ 100 mls/hr IV NOW STA Stop: 11/24/18 22:54 Last Infusion: 11/24/18 23:49 Dose: 0 mls/hr Documented by: [id number] Admin: 11/24/18 23:18 Dose: 100 mls/hr Documented by: [id number] Metoprolol Tartrate (Lopressor) Confirm Administered Dose 50 mg .ROUTE .STK-MED ONE Stop: 11/24/18 23:48 Last Admin: 11/24/18 23:49 Dose: 12.5 mg Documented by: [id number] Medical Decision Making Differential Diagnosis Differential diagnoses includes but is not limited to toxic, metabolic, infectious, traumatic, cardiac, neurologic, hematologic, psychiatric and inflammatory etiologies. Medical Records Attestation: I reviewed the patient's medical records. Home Medications Current Medication List: was personally reviewed by me Laboratory Data Attestation: I reviewed the patient's lab results. Result diagrams: 11/24/18 19:05 11/24/18 19:05 Lab Results 11/24/18 11/24/18 11/24/18 Range/Units 19:05 19:05 19:05 WBC 9.70 (4.8-10.8) K/uL RBC 5.65 H (4.2-5.4) M/uL Hgb 15.3 (12.0-16.0) g/dL Hct 48.6 H (37-47) % MCV 86.0 (80-100) fL MCH 27.1 (25-34) pg MCHC 31.5 L (32-36) g/dL RDW Std Deviation 57.7 H (36.4-46.3) fL RDW Coeff of Donnie 18.6 H (11.5-14.5) % Plt Count 302 (130-400) K/uL MPV 10.3 (7.4-10.4) fL Immature Gran % (Auto) 0.8 % Neut % (Auto) 78.6 % Lymph % (Auto) 13.4 % [place] % (Auto) 6.9 % Eos % (Auto) 0.2 % Baso % (Auto) 0.1 % Immature Gran # (Auto) 0.08 H (0.00-0.02) K/uL Neut # (Auto) 7.62 H (1.4-6.5) K/uL Lymph # (Auto) 1.30 (1.2-3.4) K/uL [place] # (Auto) 0.67 H (0.11-0.59) K/uL Eos # (Auto) 0.02 (0-0.5) K/uL Baso # (Auto) 0.01 (0-0.2) K/uL PT 13.3 H (9.0-12.0) Seconds INR 1.3 H (0.9-1.1) APTT 26.9 (21.0-31.0) Seconds PTT Ratio 1.0 Sodium 137 (136-145) mmol/L Potassium 4.3 (3.5-5.1) mmol/L Chloride 103 (98-107) mmol/L Carbon Dioxide 26 (21-32) mmol/L Anion Gap 8.0 (3-11) BUN 25 H (7-18) mg/dl Creatinine 0.92 (0.6-1.2) mg/dl Est Cr Clr Drug Dosing Not Reportable Est GFR ( Amer) 64.4 Est GFR (Non-Af Amer) 55.6 BUN/Creatinine Ratio 27.3 H (10-20) Glucose 161 H (70-99) mg/dl POC Glucose (70-99) Calcium 9.4 (8.5-10.1) mg/dl Total Bilirubin 1.5 H (0.2-1) mg/dl AST 19 (15-37) U/L ALT 11 L (12-78) U/L Alkaline Phosphatase 101 (45-117) U/L Ammonia (11-32) umol/L Troponin I 0.062 H* (0-0.045) ng/ml Total Protein 7.5 (6.4-8.2) gm/dl Albumin 2.8 L (3.4-5.0) gm/dl Globulin 4.7 H (2.5-4.0) gm/dl Albumin/Globulin Ratio 0.6 L (0.9-2) TSH 21.700 H (0.300-4.500) uIu/ml Free T4 1.64 H (0.8-1.6) ng/dl Total T3 (0.60-1.81) ng/ml Urine Color Urine Appearance (Clear) Urine pH (4.5-7.5) Ur Specific Dike (1.000-1.030) Urine Protein (Negative) Urine Glucose (UA) (Negative) Urine Ketones (Negative) Urine Blood (Negative) Urine Nitrite (Negative) Urine Bilirubin (Negative) Urine Urobilinogen (Negative) Ur Leukocyte Esterase (Negative) Urine WBC (Auto) (0-5) /hpf Urine RBC (Auto) (0-4) /hpf U Hyaline Cast (Auto) (0-5) /lpf U Epithel Cells (Auto) (0-5) /lpf Urine Bacteria (Auto) (Negative) 11/24/18 11/24/18 11/24/18 Range/Units 19:05 19:05 19:13 WBC (4.8-10.8) K/uL RBC (4.2-5.4) M/uL Hgb (12.0-16.0) g/dL Hct (37-47) % MCV (80-100) fL MCH (25-34) pg MCHC (32-36) g/dL RDW Std Deviation (36.4-46.3) fL RDW Coeff of Donnie (11.5-14.5) % Plt Count (130-400) K/uL MPV (7.4-10.4) fL Immature Gran % (Auto) % Neut % (Auto) % Lymph % (Auto) % [place] % (Auto) % Eos % (Auto) % Baso % (Auto) % Immature Gran # (Auto) (0.00-0.02) K/uL Neut # (Auto) (1.4-6.5) K/uL Lymph # (Auto) (1.2-3.4) K/uL [place] # (Auto) (0.11-0.59) K/uL Eos # (Auto) (0-0.5) K/uL Baso # (Auto) (0-0.2) K/uL PT (9.0-12.0) Seconds INR (0.9-1.1) APTT (21.0-31.0) Seconds PTT Ratio Sodium (136-145) mmol/L Potassium (3.5-5.1) mmol/L Chloride (98-107) mmol/L Carbon Dioxide (21-32) mmol/L Anion Gap (3-11) BUN (7-18) mg/dl Creatinine (0.6-1.2) mg/dl Est Cr Clr Drug Dosing Est GFR ( Amer) Est GFR (Non-Af Amer) BUN/Creatinine Ratio (10-20) Glucose (70-99) mg/dl POC Glucose 131 H (70-99) Calcium (8.5-10.1) mg/dl Total Bilirubin (0.2-1) mg/dl AST (15-37) U/L ALT (12-78) U/L Alkaline Phosphatase (45-117) U/L Ammonia 20.0 (11-32) umol/L Troponin I (0-0.045) ng/ml Total Protein (6.4-8.2) gm/dl Albumin (3.4-5.0) gm/dl Globulin (2.5-4.0) gm/dl Albumin/Globulin Ratio (0.9-2) TSH (0.300-4.500) uIu/ml Free T4 (0.8-1.6) ng/dl Total T3 0.37 L (0.60-1.81) ng/ml Urine Color Urine Appearance (Clear) Urine pH (4.5-7.5) Ur Specific Dike (1.000-1.030) Urine Protein (Negative) Urine Glucose (UA) (Negative) Urine Ketones (Negative) Urine Blood (Negative) Urine Nitrite (Negative) Urine Bilirubin (Negative) Urine Urobilinogen (Negative) Ur Leukocyte Esterase (Negative) Urine WBC (Auto) (0-5) /hpf Urine RBC (Auto) (0-4) /hpf U Hyaline Cast (Auto) (0-5) /lpf U Epithel Cells (Auto) (0-5) /lpf Urine Bacteria (Auto) (Negative) 11/24/18 Range/Units 21:10 WBC (4.8-10.8) K/uL RBC (4.2-5.4) M/uL Hgb (12.0-16.0) g/dL Hct (37-47) % MCV (80-100) fL MCH (25-34) pg MCHC (32-36) g/dL RDW Std Deviation (36.4-46.3) fL RDW Coeff of Donnie (11.5-14.5) % Plt Count (130-400) K/uL MPV (7.4-10.4) fL Immature Gran % (Auto) % Neut % (Auto) % Lymph % (Auto) % [place] % (Auto) % Eos % (Auto) % Baso % (Auto) % Immature Gran # (Auto) (0.00-0.02) K/uL Neut # (Auto) (1.4-6.5) K/uL Lymph # (Auto) (1.2-3.4) K/uL [place] # (Auto) (0.11-0.59) K/uL Eos # (Auto) (0-0.5) K/uL Baso # (Auto) (0-0.2) K/uL PT (9.0-12.0) Seconds INR (0.9-1.1) APTT (21.0-31.0) Seconds PTT Ratio Sodium (136-145) mmol/L Potassium (3.5-5.1) mmol/L Chloride (98-107) mmol/L Carbon Dioxide (21-32) mmol/L Anion Gap (3-11) BUN (7-18) mg/dl Creatinine (0.6-1.2) mg/dl Est Cr Clr Drug Dosing Est GFR ( Amer) Est GFR (Non-Af Amer) BUN/Creatinine Ratio (10-20) Glucose (70-99) mg/dl POC Glucose (70-99) Calcium (8.5-10.1) mg/dl Total Bilirubin (0.2-1) mg/dl AST (15-37) U/L ALT (12-78) U/L Alkaline Phosphatase (45-117) U/L Ammonia (11-32) umol/L Troponin I (0-0.045) ng/ml Total Protein (6.4-8.2) gm/dl Albumin (3.4-5.0) gm/dl Globulin (2.5-4.0) gm/dl Albumin/Globulin Ratio (0.9-2) TSH (0.300-4.500) uIu/ml Free T4 (0.8-1.6) ng/dl Total T3 (0.60-1.81) ng/ml Urine Color Dark Yellow Urine Appearance Cloudy H (Clear) Urine pH 5.0 (4.5-7.5) Ur Specific Dike 1.025 (1.000-1.030) Urine Protein Trace H (Negative) Urine Glucose (UA) Negative (Negative) Urine Ketones Trace H (Negative) Urine Blood Negative (Negative) Urine Nitrite Positive H (Negative) Urine Bilirubin Negative (Negative) Urine Urobilinogen Negative (Negative) Ur Leukocyte Esterase Negative (Negative) Urine WBC (Auto) 1-5 (0-5) /hpf Urine RBC (Auto) 0-4 (0-4) /hpf U Hyaline Cast (Auto) 1-5 (0-5) /lpf U Epithel Cells (Auto) 5-10 H (0-5) /lpf Urine Bacteria (Auto) Negative (Negative) Imaging Data Radiologist's Impression: Radiology results as stated below per my review and the radiologist's interpretation: XR chest 1V portable CLINICAL HISTORY: weakness dyspnea COMPARISON STUDY: 11/17/2018 FINDINGS: Moderate cardiomegaly. Dense calcification mitral annulus. Lungs are clear. Diaphragms are smooth. IMPRESSION: Moderate cardiomegaly. Otherwise negative study. The above report was generated using voice recognition software. It may contain grammatical, syntax or spelling errors. Electronically signed by: Seth Zapata M.D. 11/24/2018 7:[address] head/brain wo con CLINICAL HISTORY: 88 years-old Female with ams. Acutely altered mental status TECHNIQUE: Multiple axial CT images of the head were obtained without contrast. A dose lowering technique was utilized adhering to the principles of ALARA. CT DOSE: 729.78 mGycm COMPARISON: CT head 11/17/2018. FINDINGS: No acute intracranial hemorrhage, midline shift, intracranial mass, hydrocephalus, territorial ischemia or abnormal extra-axial collection. Age- related involutional changes with ex vacuo ventriculomegaly. Moderate white matter hypodensities suggestive of chronic microvascular ischemic changes. Cerebral vascular calcifications also noted. Study is mildly motion degraded. The calvarium is intact. Note is made of a metopic suture. Mastoid air cells are clear. Mild to moderate mucosal thickening about the ethmoid air cells. Right anterior frontal scalp hematoma, 4.0 x 0.8 cm. Prior bilateral cataract repair. IMPRESSION: 1. Mildly motion degraded exam without acute intracranial abnormality or calvarial fracture. 2. 4.0 x 0.8 cm right anterior frontal scalp hematoma. The above report was generated using voice recognition software. It may contain grammatical, syntax or spelling errors. Electronically signed by: Darrius Posadas M.D. 11/24/2018 8:43 PM ECG Data Attestation: I personally reviewed and interpreted this ECG as follows: Indication: altered mental status Rate (beats per minute): 96 Rhythm: atrial fibrillation Findings: + other (Right [place] Deviation) and + PVC Comparison ECG Date: from (11/17/2018) Change: no significant change (EKG is similar) Blood Pressure Blood Pressure Findings: Elevated blood pressure Blood Pressure Disposition: further management by hospitalist MDM Narrative 88-year-old female with a history of UTI from facility today with acute change around 530p of not really following commands and rambling. Facility staff states this was acute around 530p with bilateral hand weakness noted. No new falls reported since prior evals here over the past several weeks. Daughter does state this is acutely different than when she saw yesterday. Is on Eliquis and thus would not be a TPA candidate. Slight troponin level is detectable but has had chronic troponin in the past. EKG appears unchanged in A. fib. Chest x-ray without significant findings. No significant leukocytosis or signs of anemia. Benign abdomen. No new trauma since prior evaluation but again head CT was completed look for any acute intracranial abnormality. Not really having focal deficits on exam more of a generalized encephalopathy. Ammonia normal. No evidence of severe hepatitis or pancreatitis. TSH is significant elevated but free T4 just above normal. CT the head is negative for any acute pathology. Urinalysis sent but not all that impressive with only some nitrates seen. Patient continues to be acutely altered and does not recognize daughter. Given this acute change in mental status will refer the patient for admission with his acute confusion. Impression & Plan Altered mental status Discharge Plan Visit Data Chief Complaint: Altered Mental Status Stated Complaint: AMS,CHEST PAIN ED Provider: Rommel Roy Discharge Problem: Altered mental status Patient Disposition: Being Evaluated by Hospitalist Forms Stand Alone Forms: My [facility] Prescriptions Prescriptions: No Action latanoprost 0.005 % Drops 1 drp OPR HS RF: 0 acetaminophen 325 mg Tablet 325 mg PO Q4H PRN (Reason: Pain) RF: 0 atorvastatin 10 mg tablet 10 mg PO DAILY RF: 0 citalopram 10 mg Tablet 10 mg PO DAILY RF: 0 lisinopril 20 mg tablet 20 mg PO DAILY RF: 0 loperamide 2 mg Tablet 2 mg PO Q4H PRN (Reason: Diarrhea) RF: 0 aspirin [Aspirin Low Dose] 81 mg Tablet,Delayed Release (Dr/Ec) 81 mg PO DAILY RF: 0 guaifenesin [Siltussin SA] 100 mg/5 mL Liquid 5 ml PO Q6H PRN (Reason: Cough) RF: 0 potassium citrate 10 mEq (1,080 mg) Tablet Extended Release 10 meq PO TID RF: 0 ropinirole 0.5 mg tablet 0.5 mg PO HS RF: 0 nystatin 100,000 unit/gram Cream 1 applic TOPICAL BID PRN (Reason: Inflammation) RF: 0 brimonidine 0.2 % Drops 1 drp OPR BID RF: 0 metoprolol tartrate 50 mg tablet 50 mg PO BID RF: 0 omeprazole 20 mg capsule,delayed release(DR/EC) 20 mg PO DAILY RF: 0 furosemide 20 mg Tablet 20 mg PO DIRECTED RF: 0 nystatin 100,000 unit/gram Powder 1 applic TOPICAL BID PRN (Reason: Rash) RF: 0 levothyroxine 112 mcg tablet 112 mg PO DAILY RF: 0 Eliquis 5 mg Tablet 5 mg PO BID RF: 0 cholecalciferol (vitamin D3) [Vitamin D3] 1,000 unit Tablet 2 tab PO DAILY RF: 0 Referrals Referrals: Stephanie Jones [Primary Care Provider] - The scribe's documentation has been prepared under my direction and personally reviewed by me in its entirety. I confirm that the note above accurately reflects all work, treatment, procedures, and medical decision making performed by me.
--- NOTE | 2018-11-24 23:44 | History & Physical Report ---
Date of Service November 25, 2018 Assessment & Plan (1) Encephalopathy: ? Secondary to complicated UTI, possible sepsis Rule out TIA with transient left facial droop, left-sided weakness symptoms, past hx CVA Hypertension, elevated ? Secondary to intracranial process Chest pain ? Secondary to hypertensive urgency Patient has no recollection of earlier chest pain complaints. Troponin elevation possibly from uncontrolled BP A. fib, rate uncontrolled on Eliquis chronic diastolic heart failure (EF 70%, TTE 2017), patient possibly on the dry side Scalp hematoma secondary to recurrent fall secondary to ambulatory dysfunction Hemoglobin stable Hyperglycemia ro DM Medical telemetry Cultures, IV Ceftriaxone MRI brain, Neurology consult RE possible TIA Permissive hypertension until new stroke ruled out low-dose beta-boom for A. fib given slightly uncontrolled rate Follow troponin, TTE RE chest pain, troponin elevation Cardiology consultation if with further troponin elevation IVF Check hemoglobin A1c Appropriate to hold home aspirin/Eliquis for now given scalp hematoma until hemoglobin trend stable Consider stopping Eliquis on discharge given recurrent falls at current assisted living facility residence. PT OT eval DVT prophylaxis. SCDs RE scalp hematoma DNR as per daughter/POA, Ms. Paniagua Juniorwillie. She requests updates from providers through [phone]. History of Present Illness Chief Complaint: Altered mental status, left arm weakness, chest pain as per records Primary Care Provider: Fanny Brown History obtained from patient, family, and records. Limited history from patient secondary to disorientation . Medical history significant for history CVA, A. fib on Eliquis, chronic diastoli c heart failure (EF 70%, TTE 2017), mitral regurgitation as per records, hypertension, hyperlipidemia, restless leg syndrome, mood disorder. Recent confinement November 2016 for acute CVA presenting as confusion and fall. Patient seen at the ER on 2 occasions last month for recurrent falls. CT head from most recent visit last November 17 showed frontal scalp contusion. As per assisted living staff, in the last month patient not compliant with asking staff for assistance prior to ambulation. Patient currently not on a bed alarm as per staff. Hours ago patient noted to be confused, question of left arm weakness and left facial droop. No slurred speech as per records. Patient also complained of chest pain worse with movement and deep breathing. BP noted to be 70-90s at [facility] as per records. Patient brought to the ER for evaluation. No facial droop/arm weakness appreciated by ER provider. Patient does not recall earlier chest pain complaints. 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 Allergies Allergy/AdvReac Type Severity Reaction Status Date / Time timolol Allergy Mild Eye gets Verified 11/25/18 07:49 crusty and itches meperidine Allergy Unknown HIVES Verified 11/17/18 12:41 SINDRYNZA Allergy Mild eye gets Uncoded 11/10/18 21:28 crusty and itches Home Medications Home Medications Medication Instructions Recorded Confirmed Type acetaminophen 325 mg PO Q4H PRN 11/10/18 11/24/18 History apixaban [Eliquis] 5 mg PO BID 11/10/18 11/24/18 History aspirin [Aspirin Low Dose] 81 mg PO DAILY 11/10/18 11/24/18 History atorvastatin 10 mg PO DAILY 11/10/18 11/24/18 History brimonidine 1 drp OPR BID 11/10/18 11/24/18 History citalopram 10 mg PO DAILY 11/10/18 11/24/18 History furosemide 20 mg PO DIRECTED 11/10/18 11/24/18 History guaifenesin [Siltussin SA] 5 ml PO Q6H PRN 11/10/18 11/24/18 History latanoprost 1 drp OPR HS 11/10/18 11/24/18 History levothyroxine 112 mg PO DAILY 11/10/18 11/24/18 History lisinopril 20 mg PO DAILY 11/10/18 11/24/18 History loperamide 2 mg PO Q4H PRN 11/10/18 11/24/18 History metoprolol tartrate 50 mg PO BID 11/10/18 11/24/18 History nystatin 1 applic TOPICAL BID PRN 11/10/18 11/24/18 History nystatin 1 applic TOPICAL BID PRN 11/10/18 11/24/18 History omeprazole 20 mg PO DAILY 11/10/18 11/24/18 History potassium citrate 10 meq PO TID 11/10/18 11/24/18 History ropinirole 0.5 mg PO HS 11/10/18 11/24/18 History cholecalciferol (vitamin D3) 2 tab PO DAILY 11/17/18 11/24/18 History [Vitamin D3] Past Med/Surg History Medical History UTI (urinary tract infection) Hallucinations Fall Social History Preferred Language: [place] Citizen Communication Ability: Effective 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 Beliefs That Will Affect Care: None Current Living Situation: [facility] Feels Safe at Home: Yes Safety Concerns: Feels Safe At This Time Smoking Status: Never smoker Hx Alcohol Use: No Hx Substance Use: No Review of Systems Could not be reliably obtained Physical Exam Vital Signs (Past 24 Hours): Last Vital Signs Temp 37.2 C 11/24/18 18:15 Pulse 119 H 11/24/18 22:35 Resp 18 11/24/18 22:35 BP 186/100 H 11/24/18 22:35 Pulse Ox 97 11/24/18 22:35 Physical Exam: GENERAL: Comfortable, disoriented, no respiratory distress, patient lying on her left lateral decubitus position SKIN: Normal color, warm HEENT: Tender swelling, right frontal area [place] palpebral conjunctivae, coral ateral periorbital ecchymoses, no ptosis, dry buccal mucosa NECK : Supple, no tenderness CHEST : Decreased effort , no tenderness HEART : Tachycardic, irregular, systolic murmur ABDOMEN: Some distention, nontender EXTREMITIES : No LE swelling/tenderness, ecchymoses on the extremities NEUROLOGIC : Disoriented , no facial asymmetry, gait and stance not assessed, mild hearing impairment Results & Data Laboratory Results Laboratory Results WBC 9.70 K/uL (4.8-10.8) 11/24/18 19:05 RBC 5.65 M/uL (4.2-5.4) H 11/24/18 19:05 Hgb 15.3 g/dL (12.0-16.0) 11/24/18 19:05 Hct 48.6 % (37-47) H 11/24/18 19:05 MCV 86.0 fL (80-100) 11/24/18 19:05 MCH 27.1 pg (25-34) 11/24/18 19:05 MCHC 31.5 g/dL (32-36) L 11/24/18 19:05 RDW Std Deviation 57.7 fL (36.4-46.3) H 11/24/18 19:05 RDW Coeff of Donnie 18.6 % (11.5-14.5) H 11/24/18 19:05 Plt Count 302 K/uL (130-400) 11/24/18 19:05 MPV 10.3 fL (7.4-10.4) 11/24/18 19:05 Immature Gran % (Auto) 0.8 % 11/24/18 19:05 Neut % (Auto) 78.6 % 11/24/18 19:05 Lymph % (Auto) 13.4 % 11/24/18 19:05 [place] % (Auto) 6.9 % 11/24/18 19:05 Eos % (Auto) 0.2 % 11/24/18 19:05 Baso % (Auto) 0.1 % 11/24/18 19:05 Immature Gran # (Auto) 0.08 K/uL (0.00-0.02) H 11/24/18 19:05 Neut # (Auto) 7.62 K/uL (1.4-6.5) H 11/24/18 19:05 Lymph # (Auto) 1.30 K/uL (1.2-3.4) 11/24/18 19:05 [place] # (Auto) 0.67 K/uL (0.11-0.59) H 11/24/18 19:05 Eos # (Auto) 0.02 K/uL (0-0.5) 11/24/18 19:05 Baso # (Auto) 0.01 K/uL (0-0.2) 11/24/18 19:05 PT 13.3 Seconds (9.0-12.0) H 11/24/18 19:05 INR 1.3 (0.9-1.1) H 11/24/18 19:05 APTT 26.9 Seconds (21.0-31.0) 11/24/18 19:05 PTT Ratio 1.0 11/24/18 19:05 Sodium 137 mmol/L (136-145) 11/24/18 19:05 Potassium 4.3 mmol/L (3.5-5.1) 03/01/19 19:05 Chloride 103 mmol/L (98-107) 11/24/18 19:05 Carbon Dioxide 26 mmol/L (21-32) 11/24/18 19:05 Anion Gap 8.0 (3-11) 11/24/18 19:05 BUN 25 mg/dl (7-18) H 11/24/18 19:05 Creatinine 0.92 mg/dl (0.6-1.2) 11/24/18 19:05 Est Cr Clr Drug Dosing Not Reportable 11/24/18 19:05 Est GFR ( Amer) 64.4 11/24/18 19:05 Est GFR (Non-Af Amer) 55.6 11/24/18 19:05 BUN/Creatinine Ratio 27.3 (10-20) H 11/24/18 19:05 Glucose 161 mg/dl (70-99) H 11/24/18 19:05 POC Glucose 131 (70-99) H 11/24/18 19:13 Calcium 9.4 mg/dl (8.5-10.1) 11/24/18 19:05 Total Bilirubin 1.5 mg/dl (0.2-1) H 11/24/18 19:05 AST 19 U/L (15-37) 11/24/18 19:05 ALT 11 U/L (12-78) L 11/24/18 19:05 Alkaline Phosphatase 101 U/L (45-117) 11/24/18 19:05 Ammonia 20.0 umol/L (11-32) 11/24/18 19:05 Troponin I 0.062 ng/ml (0-0.045) H* 11/24/18 19:05 Total Protein 7.5 gm/dl (6.4-8.2) 11/24/18 19:05 Albumin 2.8 gm/dl (3.4-5.0) L 11/24/18 19:05 Globulin 4.7 gm/dl (2.5-4.0) H 11/24/18 19:05 Albumin/Globulin Ratio 0.6 (0.9-2) L 11/24/18 19:05 TSH 21.700 uIu/ml (0.300-4.500) H 11/24/18 19:05 Free T4 1.64 ng/dl (0.8-1.6) H 11/24/18 19:05 Total T3 0.37 ng/ml (0.60-1.81) L 11/24/18 19:05 Urine Color Dark Yellow 11/24/18 21:10 Urine Appearance Cloudy (Clear) H 11/24/18 21:10 Urine pH 5.0 (4.5-7.5) 11/24/18 21:10 Ur Specific [place] 1.025 (1.000-1.030) 11/24/18 21:10 Urine Protein Trace (Negative) H 11/24/18 21:10 Urine Glucose (UA) Negative (Negative) 11/24/18 21:10 Urine Ketones Trace (Negative) H 11/24/18 21:10 Urine Blood Negative (Negative) 11/24/18 21:10 Urine Nitrite Positive (Negative) H 11/24/18 21:10 Urine Bilirubin Negative (Negative) 11/24/18 21:10 Urine Urobilinogen Negative (Negative) 11/24/18 21:10 Ur Leukocyte Esterase Negative (Negative) 11/24/18 21:10 Urine WBC (Auto) 1-5 /hpf (0-5) 11/24/18 21:10 Urine RBC (Auto) 0-4 /hpf (0-4) 11/24/18 21:10 U Hyaline Cast (Auto) 1-5 /lpf (0-5) 11/24/18 21:10 U Epithel Cells (Auto) 5-10 /lpf (0-5) H 11/24/18 21:10 Urine Bacteria (Auto) Negative (Negative) 11/24/18 21:10 Diagnostic Findings Chest x-ray showed cardiomegaly CT head: 4 x 0.8 cm right anterior frontal scalp hematoma EKG as per my interpretation: Rate 95, A. fib, PVCs, LVH
[2018-11-24] MEDS ORDERED: METOPROLOL TARTRATE 50 MG TAB ONE (23:47)
[2018-11-24] MEDS: METOPROLOL TARTRATE 25 MG TAB PO SCH (23:49)
[2018-11-25 00:08] LABS: Magnesium 2.2 mg/dl (1.8-2.4)
[2018-11-25] MEDS ORDERED: SODIUM CHLORIDE 0.9% 1000ML 1,000 ML IV ONE (00:13)
[2018-11-25] MEDS ORDERED: ACETAMINOPHEN 325 MG TAB PO PRN ×2 (02:27)
[2018-11-25] MEDS ORDERED: PHARMACIST DISCHARGE MED REC CONSULT PRN (02:27)
[2018-11-25] MEDS ORDERED: PROCHLORPERAZINE 5 MG in SYRINGE 4 ML IV PRN (02:27)
[2018-11-25] MEDS ORDERED: NITROGLYCERIN SL 0.4 MG/TAB TAB SL PRN (02:27)
[2018-11-25 04:08] LABS: Basophils # (auto) 0.01 K/uL (0-0.2); Basophils % (auto) 0.1 %; Eosinophils # (auto) 0.01 K/uL (0-0.5); Eosinophils % (auto) 0.1 %; Hematocrit (blood only) 40.4 % (37-47); Hemoglobin 12.7 g/dL (12.0-16.0); Immature Granulocytes # (auto) 0.05 K/uL (0.00-0.02); Immature Granulocytes % (auto) 0.5 %; Lymphocytes # (auto) 1.14 K/uL (1.2-3.4); Lymphocytes % (auto) 12.4 %; Mean Corpuscular Hgb Conc 31.4 g/dL (32-36); Mean Corpuscular Volume 84.5 fL (80-100); Mean Platelet Volume 10.2 fL (7.4-10.4); Monocytes % (auto) 8.7 %; Neutrophils % (auto) 78.2 %; Platelet Count 299 K/uL (130-400); RDW Coefficient of Variation 18.4 % (11.5-14.5); RDW Standard Deviation 56.5 fL (36.4-46.3); Red Blood Count 4.78 M/uL (4.2-5.4); White Blood Count 9.21 K/uL (4.8-10.8)
[2018-11-25 04:18] LABS: Partial Thromboplastin Ratio 1.1; Partial Thromboplastin Time 29.4 Seconds (21.0-31.0)
[2018-11-25 04:28] LABS: BUN Creatinine Ratio 39.9 (10-20); Calcium 8.7 mg/dl (8.5-10.1); Creatinine Clr Calc Pharmacy 53.6 ml/min; Est GFR (African American) 90.1; Est GFR (Non-African American) 77.7; Potassium 3.8 mmol/L (3.5-5.1)
[2018-11-25 04:38] LABS: Troponin I 0.063 ng/ml (0-0.045)
[2018-11-25] MEDS ORDERED: PERFLUTREN LIPID MICROSPHERE (DEFINITY) IV ONE (07:28)
[2018-11-25] MEDS ORDERED: LEVOTHYROXINE SODIUM 112 MCG TABLET PO SCH ×2 (07:30→09:00)
[2018-11-25 08:59] LABS: Estimated Average Glucose 131 mg/dl; Hemoglobin A1C 6.2 % (4.5-5.6)
[2018-11-25] MEDS: ATORVASTATIN 10 MG TAB PO SCH (10:00)
[2018-11-25] MEDS: PANTOprazole 40 MG TAB PO SCH (10:00)
[2018-11-25] MEDS: CITALOPRAM 20 MG TAB PO SCH (10:00)
[2018-11-25] MEDS: BRIMONIDINE TART 0.2% OP SOLN PER DROP CHARGE OPR SCH ×2 (10:02→20:36)
[2018-11-25] MEDS: METOPROLOL TARTRATE 25 MG TAB PO SCH ×2 (10:52→20:05)
--- NOTE | 2018-11-25 12:10 | Hospitalist Progress Note ---
Date of Service November 25, 2018 Assessment & Plan (1) Encephalopathy: Possible related to UTI vs stroke VS hypertensive urgency CTA head showed no intracranial abnormality or calvarial fracture. A 4.0 x 0.8 cm right anterior frontal scalp hematoma. UA positive for nitrite Urine cx pending Not sure about his baseline mental status MRI head pending Stroke Likes symptoms Need to r/o CVA CT head showed no acute intracranial abnormality MRI and MRA head pending Neurology on board Continue Atorvastatin Aspirin and Eliquis on hold due to scalp hematoma for now Will resume his aspirin Continue neuro check ECHO pending Abnormal UA UA positive to nitrite Elevated lactic acid on admission Starting on Rocephin IV Follow up blood cx and urine cx Elevated Troponin Mostly due to demand ischemia from Elevated blood pressure Troponin peak to 0.063 EKG showed Afib Will trend troponin Currently denies any chest pain ECHO pending Continue statin and metoprolol Will resume aspirin Cardiology on board Ambulatory dysfunction S/P Fall CT head showed 4.0 x 0.8 cm right anterior frontal scalp hematoma. Eliquis on hold Continue PT/OT Fall precaution Will get and Xray of Left hip Check Vit B12 Afib Rate controlled Eliquis on hold due to scalp hematoma Neurology recommended to resume the anticoagulant once bleeding stable due to high risk for cardioembolic strokes. Cardiology on board Will discuss with family about to resume the anticoagulant/fall and risk of stroke Hypertensive urgency BP elevated possible due to hospital setting On Metoprolol 12.5 BID Will consider to increase metoprolol to 25mg BID Continue monitor BP Hypothyroidism TSH 21.7 Will increase levothyroxine to 125mcg Check TSH in 4 to 6 weeks Hyperglycemia Hba1c 6.2 Continue monitor Chronic diastolic heart failure Last ECHO showed EF 70%, in 2017) No sign of fluid overload Will continue monitor CODE STATUS DNR POA, Ms. Arcelia Fabian. Disposition Continue monitor closely Daughter requests updates from providers through [id number]. Subjective Pt was seen and examined Lying in bed with no distress Very poor historian Pt said that she fell yesterday Every question that i asked her she said that " I don't know" No chest pain, palpitation and SOB Physical Exam Vital Signs (Past 24 Hours): Last Vital Signs Temp 36.7 C 11/25/18 11:54 Pulse 105 H 11/25/18 11:54 Resp 16 11/25/18 11:54 BP 132/75 11/25/18 11:54 Pulse Ox 93 11/25/18 11:54 Physical Exam: General- No acute distress Head- facial bruises Eyes- PERRL, EOMI, ENT- oropharynx clear Neck- supple, no JVD Lungs- No wheezing Heart- irregular rhythm Abdomen- normal bowel sounds, soft, nontender Extremities- no calf tenderness Neuro- alert, awake, confused, PERRL, EOMI; no dysarthria Skin- warm & dry, ecchymoses in extremities
--- NOTE | 2018-11-25 12:22 | Neurology Consultation ---
Date of Consultation November 25, 2018 Assessment & Plan (1) Encephalopathy: This is a 88-year-old female with subacute encephalopathy and worsening gait disorder which is likely multifactorial. Patient does have underlying dementia and was recently treated for UTI which can cause acute delirium and confusion. In addition it appears that the patient has been more sedentary which can cause worsening general weakness. Patient has had several falls and has hit her head, and potentially could have some component of concussion contributing to confusion. Patient was also recently on tramadol which could also cause acute confusion. Requip could also cause hallucinations and confusion, although the patient has been on this medication for a long time for RLS. Certainly advancing dementia could also cause worsening confusion and possible hallucinations, although it is not clear that the patient has had recent hallucinations. The patient's examination is non-focal with no signs of stroke or TIA at this time. That being said, the patient has had her Eliquis held recently, and due to A. fib, she is at high risk for cardioembolic strokes. Recommendations: Resume Eliquis when safe to do so from a bleeding standpoint. Fall risk is no longer considered an appropriate reason to hold anticoagulation in the setting of A. fib since the risk of stroke and disability from stroke is high risk. Agree with MRI of the brain to see if there is been any recent acute stroke that would contribute to acute encephalopathy. Recommend x-raying the left hip to make sure that there has not been a fracture with her recent falls and complaint of hip pain Could consider checking a B12 level with recommended level above 400, as a level lower than 400 could contribute to poor balance and worsening memory. Follow-up PT/OT and speech therapies. Thank you for allowing me to participant in this patient's care. If there is any questions or concerns, feel free to call/page me. History of Present Illness Reason for Consultation: Consultation for altered mental status Attending Physician: Barbie Quarles MD History of Present Illness This is a 88-year-old female who presents after several falls and fluctuating confusion over the last 2 weeks. Multiple ER notes and admission notes were re viewed as well as past stroke workup in 2017. [facility]. Has had several falls over the last 2 weeks with fluctuating confusion. Forehead she was being treated for a UTI and has had confusion in association with UTIs in the past but family reports that typically she recovers fairly fast. She did hit her head with 1 of these initial falls. There is reports of hallucinations but the family denies any hallucinations that they know of. They do report that she had some hallucinations in the past with her initial stroke and with tramadol possibly. They had requested that the patient be taken off of tramadol and put on Tylenol and do not think that she has had any hallucinations since then. The patient was initially evaluated in the emergency room on November 10 for a fall and returned November 24. Per ER notes there was no reports or findings of focal weakness or focal neurological deficits. Labs were reviewed. Unremarkable CBC and metabolic panel. Troponin was noted to be mildly elevated at 0.063. TSH was extremely elevated with mildly elevated T4 and a low T3. UA was fairly unremarkable. Ammonia was normal. Patient does have known A. fib with previous stroke in 2017 in the left centrum semi-ovale, right periventricular area, and left cerebellum with signs of old ischemic disease as well. Patient's Eliquis was recommended to be held for a couple days after her initial fall on the . Past medical history A. fib on Eliquis, hypertension, dyslipidemia, anxiety/depression, restless leg syndrome, cardioembolic CVA in 2017, diastolic heart failure, dementia. No episodes concerning for seizures Family history of cardiac disease and cancer Social history: Patient resides in a jail. No tobacco use. No alcohol or illegal drug use. Allergies Allergy/AdvReac Type Severity Reaction Status Date / Time timolol Allergy Mild Eye gets Verified 11/25/18 07:49 crusty and itches meperidine Allergy Unknown HIVES Verified 11/17/18 12:41 SINDRYNZA Allergy Mild eye gets Uncoded 11/10/18 21:28 crusty and itches Home Medications Home Medications Medication Instructions Recorded Confirmed Type acetaminophen 325 mg PO Q4H PRN 11/10/18 11/24/18 History apixaban [Eliquis] 5 mg PO BID 11/10/18 11/24/18 History aspirin [Aspirin Low Dose] 81 mg PO DAILY 11/10/18 11/24/18 History atorvastatin 10 mg PO DAILY 11/10/18 11/24/18 History brimonidine 1 drp OPR BID 11/10/18 11/24/18 History citalopram 10 mg PO DAILY 11/10/18 11/24/18 History furosemide 20 mg PO DIRECTED 11/10/18 11/24/18 History guaifenesin [Siltussin SA] 5 ml PO Q6H PRN 11/10/18 11/24/18 History latanoprost 1 drp OPR HS 11/10/18 11/24/18 History levothyroxine 112 mg PO DAILY 11/10/18 11/24/18 History lisinopril 20 mg PO DAILY 11/10/18 11/24/18 History loperamide 2 mg PO Q4H PRN 11/10/18 11/24/18 History metoprolol tartrate 50 mg PO BID 11/10/18 11/24/18 History nystatin 1 applic TOPICAL BID PRN 11/10/18 11/24/18 History nystatin 1 applic TOPICAL BID PRN 11/10/18 11/24/18 History omeprazole 20 mg PO DAILY 11/10/18 11/24/18 History potassium citrate 10 meq PO TID 11/10/18 11/24/18 History ropinirole 0.5 mg PO HS 11/10/18 11/24/18 History cholecalciferol (vitamin D3) 2 tab PO DAILY 11/17/18 11/24/18 History [Vitamin D3] Patient History Medical History UTI (urinary tract infection) Hallucinations Fall Social History Preferred Language: [place] Communication Ability: Effective Regional Project 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 Complete review of systems otherwise negative except for the above-noted in HPI Physical Exam Vital Signs (Past 24 Hours): Last Vital Signs Temp 36.7 C 11/25/18 11:54 Pulse 105 H 11/25/18 11:54 Resp 16 11/25/18 11:54 BP 132/75 11/25/18 11:54 Pulse Ox 93 11/25/18 11:54 Physical Exam: Gen.: Patient is alert and oriented to person only (the family reports that sometimes she does call them by the wrong name or designation) HEENT: Normocephalic. Multiple bruising on face and forehead Heart: Irregular rate and rhythm Extremities: No gross deformities or rashes noted Neurological examination: Mental status: Patient is alert and oriented to person only. Poor historian. Impaired remote and recent memory. Poor fund of knowledge. Attention concentration normal for the situation. Speech is fluent without any dysarthria or aphasia noted. In general paucity of speech Cranial nerves: Visual meraz intact to confrontation. Funduscopic examination was difficult to visualize but no signs of papilledema. Pupils equally round and reactive to light. Extraocular muscles intact without nystagmus. No facial asymmetry noted. Facial sensation intact. Tongue midline. Good palatal elevation. Good shoulder shrug bilaterally. Hearing grossly intact voice. Strength: 3-4/5 both proximal and distal in all extremities. There is no focal weakness, but the patient did have poor resistance due to pain especially in the left hip.Tone is normal. Does appear to have a mild intermittent resting tremor of the left hand Sensation: Grossly intact to light touch in all extremities Deep tendon reflexes: +1 in bilateral biceps and patellar. Toes are downgoing to plantar stimulation bilaterally Coordination: Patient has good finger to nose without dysmetria. Station within the bed is normal.
--- NOTE | 2018-11-25 14:06 | Magnetic Resonance Report ---
MR angio head wo con HISTORY: stroke TECHNIQUE: 3-D [id number] MRA of the brain was performed without contrast. COMPARISON STUDY: None. FINDINGS: Visualized intracranial internal carotid arteries, distal vertebral arteries, and basilar a rtery are widely patent. There is no significant stenosis, occlusion, or aneurysm seen within the coral ateral ACAs, MCAs, or phosphatic fertilizer supervisor. IMPRESSION: No significant stenosis, occlusion, or aneurysm within the [place]. The above report was generated using voice recognition software. It may contain grammatical, syntax or spelling errors. Electronically signed by: Seth Zapata M.D. 11/25/2018 2:04 PM
--- NOTE | 2018-11-25 14:08 | Magnetic Resonance Report ---
MR brain wo con HISTORY: stroke TECHNIQUE: Multiplanar multisequence MRI of the brain was performed without the use of contrast. COMPARISON STUDY: None. FINDINGS: There are no areas of restricted diffusion to suggest acute infarction. The midline structu res are intact. The paranasal sinuses are clear. The mastoid air cells are clear. The ventricles and sulci are within normal limits for age. There is no mass, hematoma, midline shift. The major vascular flow-voids at the skull base are well maintained. Moderate age-related atrophy and chronic small ves jeison change. IMPRESSION: No acute intracranial abnormality. Age-related atrophy and chronic small vessel change The above report was generated using voice recognition software. It may contain grammatical, syntax or spelling errors. Electronically signed by: Seth Zapata M.D. 11/25/2018 2:07 PM
--- NOTE | 2018-11-25 14:22 | XRay Report ---
XR hip LT min 2V CLINICAL HISTORY: S/P fall trauma. Pain. COMPARISON: None. DISCUSSION: The bones and joint spaces appear intact. There is no evidence of fracture, dislocation o r bony disease. There is no evidence for soft tissue swelling. IMPRESSION: Negative study. The above report was generated using voice recognition software. It may contain grammatical, syntax or spelling errors. Electronically signed by: Seth Zapata M.D. 11/25/2018 2:20 PM
--- NOTE | 2018-11-25 16:05 | Cardiology Consultation ---
Date of Consultation November 25, 2018 Assessment & Plan (1) Elevated troponin: Suspect the elevated troponin is related to a supply demand mismatch. The patient has evidence of moderate left ventricle hypertrophy on her echocardiogram. At the time of her presentation, she was significantly hyp ertensive (186/100) and her ventricular response was elevated in the 130s. Do not feel that this represents acute myocardial ischemia. Would simply continue her metoprolol tartrate. (2) Permanent atrial fibrillation: The patient's ventricular response was elevated thumb presentation, however, is now well controlled. Would simply continue her metoprolol tartrate. Eliquis currently on hold. Aspirin has been restarted. (3) Mitral regurgitation: The patient has evidence of moderate to severe mitral regurgitation on her echocardiogram. This is unchanged from a study performed in November 2016. (4) Hypertension: Significantly hypertensive at time presentation, however, now demonstrates adequate control. History of Present Illness Attending Physician: Barbie Quarles MD History of Present Illness Mrs. Villegas is an 88-year-old female med yesterday after a fall resulting in a right scalp hematoma likely secondary to mental status changes. There is a mildly elevated troponin, and therefore, this consultation was ordered. Of note, patient is typically followed by Dr. Ceja in the outpatient setting. History is obtained from the chart as the patient is a poor historian. She apparently was noted have significant mental status changes and had been complaining of some chest discomfort with movement and deep breathing. The patient also had a fall resulting in a large right scalp hematoma prompting an emergency room evaluation. Fortunately, CT scan of the head noted only the right scalp hematoma. Troponin I levels mildly elevated 0.062. The patient carries a history of permanent atrial fibrillation and is maintained on Eliquis as an outpatient. That medication was placed on hold due to her recent fall. The patient did suffer a CVA back in 2016 that was felt secondary to her atrial fibrillation. Her medications reviewed in detail. Past medical and surgical history 1. Hypertension 2. Moderate LVH-November 2016 3. Hypercholesterolemia 4. Diastolic CHF 5. Permanent atrial fibrillation 6. Moderate to severe mitral regurgitation-November 2016 7. CVA-2016 8. Hypothyroidism 9. Dementia 10. Nephrolithiasis 11. Restless leg syndrome 12. Vitamin-D deficiency 13. Vitamin B1 deficiency 14. Hysterectomy 15. Tonsillectomy Social history The patient is a resident at [facility]. No tobacco or alcohol Family history Noncontributory Review of systems Unobtainable Allergies Allergy/AdvReac Type Severity Reaction Status Date / Time timolol Allergy Mild Eye gets Verified 11/25/18 07:49 crusty and itches meperidine Allergy Unknown HIVES Verified 11/17/18 12:41 SINDRYNZA Allergy Mild eye gets Uncoded 11/10/18 21:28 crusty and itches Home Medications Home Medications Medication Instructions Recorded Confirmed Type acetaminophen 325 mg PO Q4H PRN 11/10/18 11/24/18 History apixaban [Eliquis] 5 mg PO BID 11/10/18 11/24/18 History aspirin [Aspirin Low Dose] 81 mg PO DAILY 11/10/18 11/24/18 History atorvastatin 10 mg PO DAILY 11/10/18 11/24/18 History brimonidine 1 drp OPR BID 11/10/18 11/24/18 History citalopram 10 mg PO DAILY 11/10/18 11/24/18 History furosemide 20 mg PO DIRECTED 11/10/18 11/24/18 History guaifenesin [Siltussin SA] 5 ml PO Q6H PRN 11/10/18 11/24/18 History latanoprost 1 drp OPR HS 11/10/18 11/24/18 History levothyroxine 112 mg PO DAILY 11/10/18 11/24/18 History lisinopril 20 mg PO DAILY 11/10/18 11/24/18 History loperamide 2 mg PO Q4H PRN 11/10/18 11/24/18 History metoprolol tartrate 50 mg PO BID 11/10/18 11/24/18 History nystatin 1 applic TOPICAL BID PRN 11/10/18 11/24/18 History nystatin 1 applic TOPICAL BID PRN 11/10/18 11/24/18 History omeprazole 20 mg PO DAILY 11/10/18 11/24/18 History potassium citrate 10 meq PO TID 11/10/18 11/24/18 History ropinirole 0.5 mg PO HS 11/10/18 11/24/18 History cholecalciferol (vitamin D3) 2 tab PO DAILY 11/17/18 11/24/18 History [Vitamin D3] Patient History Medical History UTI (urinary tract infection) Hallucinations Fall Social History Preferred Language: Luxembourgish Communication Ability: Effective Stove Polisher Required: No Beliefs That Will Affect Care: None Current Living Situation: [facility] Feels Safe at Home: Yes Safety Concerns: Feels Safe At This Time Smoking Status: Never smoker Hx Alcohol Use: No Hx Substance Use: No Physical Exam Vital Signs (Past 24 Hours): Last Vital Signs Temp 36.7 C 11/25/18 11:54 Pulse 105 H 11/25/18 11:54 Resp 16 11/25/18 11:54 BP 132/75 11/25/18 11:54 Pulse Ox 93 11/25/18 11:54 Physical Exam: In general is a well-developed well-nourished elderly white female no acute distress. HEENT exam notes a large ecchymosis across the frontal scalp. Neck is supple with full carotid upstrokes. No carotid bruits. Jugular venous pressure is flat at 90. No thyromegaly. Cardiovascular exam reveals a regular rhythm with distant heart sounds. A 2/6 holosystolic murmur is heard across the entire precordium. No S3. Lungs are clear without rales, rhonchi or wheezes. Abdomen is soft without bruits. Extremities reveal intact radial pulses bilaterally. Trace pretibial edema is noted. Results & Data Laboratory Results CBC notes able of 12.7, crit 40.4, white count 9.2, platelet count [id number]. Electrolytes episode of 137, potassium 3.8, chloride 103, bicarb 20, BUN 27, creatinine 0.69, glucose 177. Initial troponin was 0.062 with a follow-up value of 0.063. Diagnostic Findings EKG notes atrial fibrillation with a left axis deviation and PVCs versus aberrant beats. CT scan of the head notes her right scalp hematoma. Chest x- ray notes cardiomegaly but no acute disease. Echocardiogram notes normal left ventricular systolic function, left ventricle hypertrophy, and moderate to severe mitral regurgitation.
[2018-11-25] MEDS: cefTRIAXone SODIUM 1,000 MG in DEXTROSE 5% 50 ML IV SCH (20:05)
[2018-11-25] MEDS: ROPINIROLE HCL 0.25 MG TABLET PO SCH (20:05)
[2018-11-25] MEDS: LATANOPROST 0.005% OP SOLN 2.5 ML BTL OPR SCH (20:06)
[2018-11-26] MEDS: LEVOTHYROXINE SODIUM 125 MCG TABLET PO SCH (06:02)
[2018-11-26] MEDS ORDERED: METOPROLOL TARTRATE 25 MG TAB PO ONE (10:00)
[2018-11-26] MEDS: ATORVASTATIN 10 MG TAB PO SCH (10:26)
[2018-11-26] MEDS: CITALOPRAM 20 MG TAB PO SCH (10:26)
[2018-11-26] MEDS: PANTOprazole 40 MG TAB PO SCH (10:28)
[2018-11-26] MEDS: BRIMONIDINE TART 0.2% OP SOLN PER DROP CHARGE OPR SCH ×2 (10:30→20:45)
--- NOTE | 2018-11-26 13:02 | Hospitalist Progress Note ---
Date of Service November 26, 2018 Assessment & Plan (1) Encephalopathy: Possible related to UTI vs stroke VS hypertensive urgency CTA head showed no intracranial abnormality or calvarial fracture. A 4.0 x 0.8 cm right anterior frontal scalp hematoma. UA positive for nitrite Urine cx no growth Not sure about his baseline mental status MRI/MRA showed no acute intracranial finding Stroke Likes symptoms Need to r/o CVA CT head showed no acute intracranial abnormality MRI and MRA head pending Neurology on board Continue Atorvastatin Aspirin and Eliquis on hold due to scalp hematoma for now Continue Aspirn Will resume Eliquis due to high risk of Stroke Case discussed with daughter and other family member present today about anticoagulant and fall We decided the best option is to continue the eliquis Daughter talked to patient facility to provide more help for the patient at the assisted living to minimize the risk of falls artist and repertoire manager on board and will talk to daughter for safe disposition Continue neuro check ECHO showed no wall motion abnormality and EF 60-65 % Abnormal UA UA positive to nitrite Elevated lactic acid on admission On Rocephin IV Urine cx and blood cx no growth so far Elevated Troponin Mostly due to demand ischemia from Elevated blood pressure Troponin peak to 0.063 EKG showed Afib Will trend troponin Currently denies any chest pain Echo showed no wall motion abormality and EF 60-65% Continue statin and metoprolol Continue aspirin Cardiology on board Ambulatory dysfunction S/P Fall CT head showed 4.0 x 0.8 cm right anterior frontal scalp hematoma. Continue PT/OT Fall precaution Xray of Left hip showed no fracture B12 above 1200 Afib Rate controlled Eliquis on hold due to scalp hematoma Neurology recommended to resume the anticoagulant once bleeding stable due to high risk for cardioembolic strokes. Cardiology on board Will discuss with family about to resume the anticoagulant/fall and risk of stroke Casse discussed with family about stroke risk from afib and falls risk that can lead to internal bleeding or intracranial bleeding Decision made to restar the eliquis Hypertensive urgency BP elevated possible due to hospital setting Metoprolol increased 25mg BID Will continue titrate metoprolol Continue monitor BP Hypothyroidism TSH 21.7 Continue levothyroxine to 125mcg Check TSH in 4 to 6 weeks Hyperglycemia Hba1c 6.2 Continue monitor Chronic diastolic heart failure Last ECHO showed EF 70%, in 2017) No sign of fluid overload Will continue monitor CODE STATUS DNR POA, Ms. Arcelia Fabian. Disposition Continue monitor closely Daughter requests updates from providers through [id number]. Subjective Pt was seen and examined Lying in bed with no distress Pt is more awake today and was able to follow command Spoke to daughter today and provided updates Pt denies any chest pain, palpitation , dizziness and SOB Physical Exam Vital Signs (Past 24 Hours): Last Vital Signs Temp 36.7 C 11/26/18 04:00 Pulse 87 11/26/18 07:44 Resp 18 11/26/18 07:44 BP 149/92 H 11/26/18 07:44 Pulse Ox 94 11/26/18 04:00 Physical Exam: General- No acute distress Head- facial bruises Eyes- PERRL, EOMI, ENT- oropharynx clear Neck- supple, no JVD Lungs- No wheezing Heart- irregular rhythm Abdomen- normal bowel sounds, soft, nontender Extremities- no calf tenderness Neuro- alert, awake, confused, PERRL, EOMI; no dysarthria Skin- warm & dry, ecchymoses in extremities
[2018-11-26] MEDS: METOPROLOL TARTRATE 25 MG TAB PO SCH ×2 (13:15→20:44)
[2018-11-26] MEDS: cefTRIAXone SODIUM 1,000 MG in DEXTROSE 5% 50 ML IV SCH (20:39)
[2018-11-26] MEDS: ROPINIROLE HCL 0.25 MG TABLET PO SCH (20:45)
[2018-11-26] MEDS: LATANOPROST 0.005% OP SOLN 2.5 ML BTL OPR SCH (20:46)
[2018-11-27] MEDS: LEVOTHYROXINE SODIUM 125 MCG TABLET PO SCH (06:16)
[2018-11-27] MEDS: CITALOPRAM 20 MG TAB PO SCH (08:53)
[2018-11-27] MEDS: METOPROLOL TARTRATE 25 MG TAB PO SCH (08:53)
[2018-11-27] MEDS: ATORVASTATIN 10 MG TAB PO SCH (08:54)
[2018-11-27] MEDS: PANTOprazole 40 MG TAB PO SCH (08:55)
[2018-11-27] MEDS: BRIMONIDINE TART 0.2% OP SOLN PER DROP CHARGE OPR SCH (08:56)
[2018-11-27] MEDS ORDERED: APIXABAN 5 MG TABLET PO SCH (09:00)
--- NOTE | 2018-11-27 13:38 | Hospitalist Progress Note ---
Date of Service November 27, 2018 Assessment & Plan (1) Encephalopathy: Possible related to UTI vs stroke VS hypertensive urgency CTA head showed no intracranial abnormality or calvarial fracture. A 4.0 x 0.8 cm right anterior frontal scalp hematoma. UA positive for nitrite Urine cx no growth Not sure about his baseline mental status MRI/MRA showed no acute intracranial finding Confusion seems to be baseline due to advance dementia Stroke Likes symptoms Need to r/o CVA CT head showed no acute intracranial abnormality MRI and MRA head pending Neurology on board Continue Atorvastatin Aspirin and Eliquis on hold due to scalp hematoma for now Continue Aspirn Will resume Eliquis due to high risk of Stroke Case discussed with daughter and other family member present today about anticoagulant and fall Family agreed to continue the eliquis due to high risk of stroke Case discussed with cardiology Dr. Wilkes today and agreed to continue the eliquis since Neuro emphasized to resume it due to high risk for embolic strokes Daughter talked to patient facility to provide more help for the patient at the assisted living to minimize the risk of falls senior engineering manager on board and will talk to daughter for safe disposition Daughter wants pt to return back to [facility] Daughter refused for her mother to [facility] where she will get close monitor and decrease the risk for fall Continue neuro check ECHO showed no wall motion abnormality and EF 60-65 % Abnormal UA UA positive to nitrite Elevated lactic acid on admission Received 3 days course of Rocephin IV Urine cx and blood cx no growth so far Will d/c abx Elevated Troponin Mostly due to demand ischemia from Elevated blood pressure Troponin peak to 0.063 EKG showed Afib Will trend troponin Currently denies any chest pain Echo showed no wall motion abormality and EF 60-65% Continue statin and metoprolol Continue aspirin Cardiology on board Ambulatory dysfunction S/P Fall CT head showed 4.0 x 0.8 cm right anterior frontal scalp hematoma. Continue PT/OT Fall precaution Xray of Left hip showed no fracture Will need more assistance to avoid the risk for fall Afib Rate controlled Eliquis on hold due to scalp hematoma Neurology recommended to resume the anticoagulant once bleeding stable due to high risk for cardioembolic strokes. Cardiology on board Will discuss with family about to resume the anticoagulant/fall and risk of stroke Casse discussed with family about stroke risk from afib and falls risk that can lead to internal bleeding or intracranial bleeding Case discussed with cardiology Dr. Wilkes today and agreed to continue the eliquis since Neuro emphasized to resume it due to high risk for embolic strokes Continue eliquis BID Hypertensive urgency BP elevated possible due to hospital setting Metoprolol increased 25mg BID Will continue titrate metoprolol Continue monitor BP Hypothyroidism TSH 21.7 Continue levothyroxine to 125mcg Check TSH in 4 to 6 weeks Hyperglycemia Hba1c 6.2 Continue monitor Chronic diastolic heart failure Last ECHO showed EF 70%, in 2017) No sign of fluid overload Will continue monitor CODE STATUS DNR POA, Ms. Arcelia Fabian. Disposition Discharge to [facility] today Daughter requests updates from providers through [id number]. Subjective Pt was seen and examined Lying in bed with no distress Pt is confused as baseline due to her dementia She said that the pain in her head improves Talked to daughter yesterday about 24hr assistance care due to risk of fall that can lead to intracranial bleeding As per cyanide case hardener daughter does not want her to go to a [facility] She wants her mother to return back to [facility] facility Denies any chest pain, palpitation, dizziness and SOB Physical Exam Vital Signs (Past 24 Hours): Last Vital Signs Temp 36.6 C 11/27/18 11:00 Pulse 79 11/27/18 11:00 Resp 18 11/27/18 11:00 BP 123/76 11/27/18 11:00 Pulse Ox 94 11/27/18 11:00 Physical Exam: General- No acute distress Head- facial bruises Eyes- PERRL, EOMI, ENT- oropharynx clear Neck- supple, no JVD Lungs- No wheezing Heart- irregular rhythm Abdomen- normal bowel sounds, soft, nontender Extremities- no calf tenderness Neuro- alert, awake, confused, PERRL, EOMI; no dysarthria Skin- warm & dry, ecchymoses in extremities
--- NOTE | 2018-11-28 08:17 | Discharge Summary ---
Date of Service November 30, 2018 Admission HPI Per Admitting Provider History obtained from patient, family, and records. Limited history from patient secondary to disorientation . Medical history significant for history CVA, A. fib on Eliquis, chronic diastolic heart failure (EF 70%, TTE 2017), mitral regurgitation as per records, hypertension, hyperlipidemia, restless leg syndrome, mood disorder. Recent confinement November 2016 for acute CVA presenting as confusion and fall. Patient seen at the ER on 2 occasions last month for recurrent falls. CT head from most recent visit last November 17 showed frontal scalp contusion. As per assisted living staff, in the last month patient not compliant with asking staff for assistance prior to ambulation. Patient currently not on a bed alarm as per staff. Hours ago patient noted to be confused, question of left arm weakness and left facial droop. No slurred speech as per records. Patient also complained of chest pain worse with movement and deep breathing. BP noted to be 70-90s at [facility] as per records. Patient brought to the ER for evaluation. No facial droop/arm weakness appreciated by ER provider. Patient does not recall earlier chest pain complaints. 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
--- NOTE | 2018-11-29 07:53 | Discharge Summary ---
Date of Service November 27, 2018 Admission HPI Per Admitting Provider History obtained from patient, family, and records. Limited history from patient secondary to disorientation . Medical history significant for history CVA, A. fib on Eliquis, chronic diastolic heart failure (EF 70%, TTE 2017), mitral regurgitation as per records, hypertension, hyperlipidemia, restless leg syndrome, mood disorder. Recent confinement November 2016 for acute CVA presenting as confusion and fall. Patient seen at the ER on 2 occasions last month for recurrent falls. CT head from most recent visit last November 17 showed frontal scalp contusion. As per assisted living staff, in the last month patient not compliant with asking staff for assistance prior to ambulation. Patient currently not on a bed alarm as per staff. Hours ago patient noted to be confused, question of left arm weakness and left facial droop. No slurred speech as per records. Patient also complained of chest pain worse with movement and deep breathing. BP noted to be 70-90s at [facility] as per records. Patient brought to the ER for evaluation. No facial droop/arm weakness appreciated by ER provider. Patient does not recall earlier chest pain complaints. 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 Admission Exam Per Admitting Provider GENERAL: Comfortable, disoriented, no respiratory distress, patient lying on her left lateral decubitus position SKIN: Normal color, warm HEENT: Tender swelling, right frontal area Dequincy palpebral conjunctivae, bilateral periorbital ecchymoses, no ptosis, dry buccal mucosa NECK : Supple, no tenderness CHEST : Decreased effort , no tenderness HEART : Tachycardic, irregular, systolic murmur ABDOMEN: Some distention, nontender EXTREMITIES : No LE swelling/tenderness, ecchymoses on the extremities NEUROLOGIC : Disoriented , no facial asymmetry, gait and stance not assessed, mild hearing impairment Principal Diagnosis Encephalopathy Stroke like symptoms Afib Ambulatory dysfunction Elevated troponin Discharge Exam General- No acute distress Head- facial bruises Eyes- PERRL, EOMI, ENT- oropharynx clear Neck- supple, no JVD Lungs- No wheezing Heart- irregular rhythm Abdomen- normal bowel sounds, soft, nontender Extremities- no calf tenderness Neuro- alert, awake, confused, PERRL, EOMI; no dysarthria Skin- warm & dry, ecchymoses in extremities Discharge Data Allergies Allergy/AdvReac Type Severity Reaction Status Date / Time timolol Allergy Mild Eye gets Verified 11/25/18 07:49 crusty and itches meperidine Allergy Unknown HIVES Verified 11/17/18 12:41 SINDRYNZA Allergy Mild eye gets Uncoded 11/10/18 21:28 crusty and itches Consultations 11/24/18 22:09 ED Decision to Admit Stat 11/25/18 02:27 Consult Case Management - Discharge Planning Routine Consult Case Management - Discharge Planning Routine 11/25/18 05:57 Consult Neurology Routine 11/25/18 06:05 Consult Cardiology Routine Ordered Studies 11/24/18 18:34 CT head/brain wo con Stat 11/25/18 02:27 MR angio head wo con Routine MR brain wo con Routine XR hip LT min 2V CLINICAL HISTORY: S/P fall trauma. Pain. COMPARISON: None. DISCUSSION: The bones and joint spaces appear intact. There is no evidence of fracture, dislocation or bony disease. There is no evidence for soft tissue swelling. IMPRESSION: Negative study. The above report was generated using voice recognition software. It may contain grammatical, syntax or spelling errors. Electronically signed by: Seth Zapata M.D. 11/25/2018 2:20 PM Dictated: 11/25/18 1420 Transcribed: 11/25/18 142 MR angio head wo con HISTORY: stroke TECHNIQUE: 3-D [id number] MRA of the brain was performed without contrast. COMPARISON STUDY: None. FINDINGS: Visualized intracranial internal carotid arteries, distal vertebral arteries, and basilar artery are widely patent. There is no significant stenosis, occlusion, or aneurysm seen within the bilateral ACAs, MCAs, or line inspector. IMPRESSION: No significant stenosis, occlusion, or aneurysm within the [place]. The above report was generated using voice recognition software. It may contain grammatical, syntax or spelling errors. Electronically signed by: Seth Zapata M.D. 11/25/2018 2:04 PM Dictated: 11/25/18 1403 Transcribed: 11/25/18 140 MR brain wo con HISTORY: stroke TECHNIQUE: Multiplanar multisequence MRI of the brain was performed without the use of contrast. COMPARISON STUDY: None. FINDINGS: There are no areas of restricted diffusion to suggest acute infarction. The midline structures are intact. The paranasal sinuses are clear. The mastoid air cells are clear. The ventricles and sulci are within normal limits for age. There is no mass, hematoma, midline shift. The major vascular flow-voids at the skull base are well maintained. Moderate age-related atrophy and chronic small vessel change. IMPRESSION: No acute intracranial abnormality. Age-related atrophy and chronic small vessel change The above report was generated using voice recognition software. It may contain grammatical, syntax or spelling errors. Electronically signed by: Seth Zapata M.D. 11/25/2018 2:07 PM Dictated: 11/25/181404 Transcribed: 11/25/181404 CT head/brain wo con CLINICAL HISTORY: 88 years-old Female with ams. Acutely altered mental status TECHNIQUE: Multiple axial CT images of the head were obtained without contrast. A dose lowering technique was utilized adhering to the principles of ALARA. CT DOSE: 729.78 mGycm COMPARISON: CT head 11/17/2018. FINDINGS: No acute intracranial hemorrhage, midline shift, intracranial mass, hydrocephalus, territorial ischemia or abnormal extra-axial collection. Age- related involutional changes with ex vacuo ventriculomegaly. Moderate white matter hypodensities suggestive of chronic microvascular ischemic changes. Cerebral vascular calcifications also noted. Study is mildly motion degraded. The calvarium is intact. Note is made of a metopic suture. Mastoid air cells are clear. Mild to moderate mucosal thickening about the ethmoid air cells. Right anterior frontal scalp hematoma, 4.0 x 0.8 cm. Prior bilateral cataract repair. IMPRESSION: 1. Mildly motion degraded exam without acute intracranial abnormality or calvarial fracture. 2. 4.0 x 0.8 cm right anterior frontal scalp hematoma. The above report was generated using voice recognition software. It may contain grammatical, syntax or spelling errors. Electronically signed by: Darrius Posadas M.D. 11/24/2018 8:43 PM Dictated: 11/24/182038 Transcribed: 11/24/182038 XR chest 1V portable CLINICAL HISTORY: weakness dyspnea COMPARISON STUDY: 11/17/2018 FINDINGS: Moderate cardiomegaly. Dense calcification mitral annulus. Lungs are clear. Diaphragms are smooth. IMPRESSION: Moderate cardiomegaly. Otherwise negative study. The above report was generated using voice recognition software. It may contain grammatical, syntax or spelling errors. Electronically signed by: Seth Zapata M.D. 11/24/2018 7:13 PM Dictated: 11/24/181912 Transcribed: 11/24/181912 Hospital Course (1) Encephalopathy: Possible related to UTI vs stroke VS hypertensive urgency CTA head showed no intracranial abnormality or calvarial fracture. A 4.0 x 0.8 cm right anterior frontal scalp hematoma. UA positive for nitrite Urine cx no growth Not sure about his baseline mental status MRI/MRA showed no acute intracranial finding Confusion seems to be baseline due to advance dementia Stroke Likes symptoms Need to r/o CVA CT head showed no acute intracranial abnormality MRI and MRA head pending Neurology on board Continue Atorvastatin Aspirin and Eliquis on hold due to scalp hematoma for now Continue Aspirn Will resume Eliquis due to high risk of Stroke Case discussed with daughter and other family member present today about anticoagulant and fall Family agreed to continue the eliquis due to high risk of stroke Case discussed with cardiology Dr. Wilkes today and agreed to continue the eliquis since Neuro emphasized to resume it due to high risk for embolic strokes Daughter talked to patient facility to provide more help for the patient at the assisted living to minimize the risk of falls sales communications manager on board and will talk to daughter for safe disposition Daughter wants pt to return back to [facility] Daughter refused for her mother to go to a [facility] nursing facility where she will get close monitor and decrease the risk for fall Continue neuro check ECHO showed no wall motion abnormality and EF 60-65 % Abnormal UA UA positive to nitrite Elevated lactic acid on admission Received 3 days course of Rocephin IV Urine cx and blood cx no growth so far Will d/c abx Elevated Troponin Mostly due to demand ischemia from Elevated blood pressure Troponin peak to 0.063 EKG showed Afib Will trend troponin Currently denies any chest pain Echo showed no wall motion abormality and EF 60-65% Continue statin and metoprolol Continue aspirin Cardiology on board Ambulatory dysfunction S/P Fall CT head showed 4.0 x 0.8 cm right anterior frontal scalp hematoma. Continue PT/OT Fall precaution Xray of Left hip showed no fracture Will need more assistance to avoid the risk for fall Afib Rate controlled Eliquis on hold due to scalp hematoma Neurology recommended to resume the anticoagulant once bleeding stable due to high risk for cardioembolic strokes. Cardiology on board Will discuss with family about to resume the anticoagulant/fall and risk of stroke Macye discussed with family about stroke risk from afib and falls risk that can lead to internal bleeding or intracranial bleeding Case discussed with cardiology Dr. Katrin nunez and agreed to continue the eliquis since Neuro emphasized to resume it due to high risk for embolic strokes Continue eliquis BID Hypertensive urgency BP elevated possible due to hospital setting Metoprolol increased 25mg BID Will continue titrate metoprolol Continue monitor BP Hypothyroidism TSH 21.7 Continue levothyroxine to 125mcg Check TSH in 4 to 6 weeks Hyperglycemia Hba1c 6.2 Continue monitor Chronic diastolic heart failure Last ECHO showed EF 70%, in 2017) No sign of fluid overload Will continue monitor CODE STATUS DNR POA, Ms. Arcelia Fabian. Disposition Discharge to [facility] Daughter requests updates from providers through [phone]. Total Time Total Time Spent Total Time Spent (In Minutes): 40 minutes Total Time Includes: Examination of the Patient, Discharge Planning, Medication Reconciliation, Communication With Other Providers and Other Discharge Plan Discharge Items Patient Disposition: Personal Alf Reason For Visit: ENCEPHALOPATHY Discharge Diagnosis: Encephalopathy Stroke like symptoms Afib Ambulatory dysfunction Elevated troponin Discharge Goals: Decrease discomfort, Improve disease control, Improve function and Increase independence Activity: Resume your previous activity Activity Comment: As tolerated Non-emergency contact: Primary Care Provider Call non-emergency contact if: you have any medication questions Follow-up/Referrals: Stephanie Jones [Primary Care Provider] - Diet: Heart Healthy Add Provider Instructions: Follow up with your primary care provider within 1 week Follow up with cardiology Continue physical and occupational therapy Will need close monitor due to high risks for fall Fall precaution since she is on anticoagulant that can lead to intracranial bleeding after a fall Check TSH in 4 to 6 weeks Metoprolol changed from 50mg to 25mg twice a day Monitor your blood pressure and your physician will titrate the metoprolol if needed Prescriptions: New levothyroxine [Synthroid] 125 mcg Tablet 125 mcg PO DAILYBB 30 Days Qty: 30 RF: 0 Continued latanoprost 0.005 % Drops 1 drp OPR HS RF: 0 acetaminophen 325 mg Tablet 325 mg PO Q4H PRN (Reason: Pain) RF: 0 atorvastatin 10 mg tablet 10 mg PO DAILY RF: 0 citalopram 10 mg Tablet 10 mg PO DAILY RF: 0 lisinopril 20 mg tablet 20 mg PO DAILY RF: 0 loperamide 2 mg Tablet 2 mg PO Q4H PRN (Reason: Diarrhea) RF: 0 aspirin [Aspirin Low Dose] 81 mg Tablet,Delayed Release (Dr/Ec) 81 mg PO DAILY RF: 0 guaifenesin [Siltussin SA] 100 mg/5 mL Liquid 5 ml PO Q6H PRN (Reason: Cough) RF: 0 potassium citrate 10 mEq (1,080 mg) Tablet Extended Release 10 meq PO TID RF: 0 ropinirole 0.5 mg tablet 0.5 mg PO HS RF: 0 nystatin 100,000 unit/gram Cream 1 applic TOPICAL BID PRN (Reason: Inflammation) RF: 0 brimonidine 0.2 % Drops 1 drp OPR BID RF: 0 omeprazole 20 mg capsule,delayed release(DR/EC) 20 mg PO DAILY RF: 0 furosemide 20 mg Tablet 20 mg PO DIRECTED RF: 0 nystatin 100,000 unit/gram Powder 1 applic TOPICAL BID PRN (Reason: Rash) RF: 0 Eliquis 5 mg Tablet 5 mg PO BID RF: 0 cholecalciferol (vitamin D3) [Vitamin D3] 1,000 unit Tablet 2 tab PO DAILY RF: 0 Changed metoprolol tartrate 50 mg tablet 25 mg PO BID 30 Days Qty: 30 RF: 0 Discontinued levothyroxine 112 mcg tablet 112 mg PO DAILY RF: 0 Stand-Alone Forms: [facility] Discharge Orders: Discharge Order (Routine); Ordered 11/27/18 Ordered By: Barbie Quarles Admission Data Admit Date/Time: 11/25/18 00:12 Attending Provider: Barbie Quarles Admit Provider: Patricio Castillo Primary Care Provider: Stephanie Jones Other Providers: Savanna Mariee Jeffrey G. Service: Telemetry Medical Other Interventions: Discharge Summary Assessment (RN) Last Done: 11/27/18 14:32 DC Date/Time DO NOT enter until pt leaves facility: 11/27/18 15:23
--- NOTE | 2018-11-30 06:25 | Coding Query ---
CODING QUERY To promote full compliance with coding requirements relating to patient care, provider participation is requested in all cases of coordinator of evaluation uncertainty. Please assist us with the question(s) below: Coding Question(s): 1. Please clarify below, in your clinical opinion, regarding the Encephalopathy. ( ) Metabolic Encephalopathy ( ) Encephalopathy, Other, Please Specify ( x ) Encephalopathy, Unspecified 2. Please clarify below, in your clinical opinion, the likely/possible source(s) of the Encephalopathy. Please check all that apply. ( ) Encephalopathy likely/possible due to Advanced Dementia ( ) Encephalopathy likely/possible due to Hypertensive Urgency ( ) Encephalopathy likely/possible due to Other, Please Specify ( x) Encephalopathy with Unknown likely/possible source Physician's Response(s): Thank you Debra Grijalva Principal Diagnosis: "that condition established after study, to be chiefly responsible for occasioning the admission of the patient to the hospital for care." Co-Existing Principal Diagnosis: "when two or more diagnoses equally meet the criteria for principal diagnosis as determined by the circumstances of admission, diagnostic work up, and/or therapy provided, and the Alphabetic Index, Tabular List, or another coding guideline does not provide sequencing direction, any one of the diagnoses may be sequenced first." "When the physician has documented what appears to be a current diagnosis in the body of the record, but has not included the diagnosis in the final diagnostic statement, the physician should be asked whether the diagnosis should be added." (Source Coding [facility] 2 QTR90. p3-4) FAISAL
== END 2018-11-27 15:23 | disposition home health service (06) | DRG 71 ==
LOC: ED 18:13 → 2N 11-25 00:12 → SUATTDRO 11-25 00:12 → 2N 11-25 02:08